=== PATIENT | male | born 1935 | race Hispanic/Latino ===

== ENCOUNTER 2018-02-12 16:31 | Observation (INO) | payer MEDICARE, OTHER ==
[2018-02-12 17:08] VITALS: BMI 31.6
--- NOTE | 2018-02-12 17:29 | ED PDOC ---
Arrival/HPI - General Time Seen by Provider: 02/12/18 16:42 Historian: Patient - History of Present Illness Narrative History of Present Illness (Text): 02/12/18 17:22 A 83 year old male, whose past medical history includes Meniere's disease, cervical myopathy, peripheral vascular disease, hypertension, hypothyroidism, and hypertension, who presents to the emergency department status post mechanical fall. Patient reports he was on his way to see his eye doctor, when he missed a step and fell forward on to his head. Alisa any loss of consciousness, headache, eye pain with eye movement, lightheadedness/dizziness, or any other complaints at this time. Patient unsure of last tetanus vaccination and believes he may be allergic to the TDAP vaccine. PMD: Dr. Paul Cardenas Symptom Onset: Gradual Symptom Course: Unchanged Activities at Onset: Light Context: Home Past Medical History - Provider Review Nursing Documentation Reviewed: Yes - Infectious Disease Hx of Infectious Diseases: None - Tetanus Immunization Tetanus Immunization: Unknown - Cardiac Hx Cardiac Disorders: Yes Hx Hypertension: Yes - Pulmonary Hx Chronic Obstructive Pulmonary Disease (COPD): Yes - Neurological Hx Neurological Disorder: No - HEENT Hx HEENT Disorder: Yes (Wears eye glassess) Hx Deafness: Yes (BYRON.) Other/Comment: Byron. HEARING AIDS, menieres disease, dry eyes b/l - Renal Hx Renal Disorder: No - Endocrine/Metabolic Hx Hypothyroidism: Yes - Hematological/Oncological Hx Blood Disorders: No - Integumentary Hx Dermatological Disorder: Yes Other/Comment: redness left foot, callous bottom of right foot, rredness and swelling toes 1 3 4 of left foot, ble discolored, dry skin right heel - Musculoskeletal/Rheumatological Hx Arthritis: Yes - Gastrointestinal Hx Gastrointestinal Disorders: (hx diverticulitis) - Genitourinary/Gynecological Hx Reproductive Disorders: Yes - Psychiatric Hx Substance Use: No - Surgical History Hx Joint Replacement: Yes (left knee/ right ankle fusion/Cervical fusion.) Other/Comment: colostomy and reversal - Anesthesia Hx Anesthesia: Yes - Suicidal Assessment Feels Threatened In Home Enviroment: No Family/Social History - Physician Review Nursing Documentation Reviewed: Yes Family/Social History: No Known Family HX Smoking Status: Former Smoker Hx Alcohol Use: Yes (occasional) Hx Substance Use: No Hx Substance Use Treatment: No Allergies/Home Meds Allergies/Adverse Reactions: Allergies diphtheria toxoid,adsorbed Allergy (Verified 02/12/18 17:09) RASH Penicillins Allergy (Verified 02/12/18 17:09) RASH Home Medications: Home Meds Medication Instructions Recorded Confirmed Aspirin [Ecotrin] 162 mg PO DAILY 05/09/12 07/23/15 Atenolol 50 mg PO BID 05/09/12 07/23/15 Celecoxib [Celebrex] 200 mg PO DAILY 05/09/12 07/23/15 Cilostazol 100 mg PO BID 05/09/12 07/23/15 Esomeprazole Magnesium [Nexium] 40 mg PO DAILY 05/09/12 07/23/15 Furosemide [Lasix] 80 mg PO DAILY 05/09/12 07/23/15 Levothyroxine Sodium 0.025 mg PO DAILY 05/09/12 07/23/15 [Levothyroxine] Meclizine HCl [Antivert] 25 mg PO BID 05/09/12 07/23/15 Oxybutynin Chloride [Ditropan Xl] 15 mg PO DAILY 05/09/12 07/23/15 Sertraline [Zoloft] 100 mg PO DAILY 05/09/12 07/23/15 Tadalafil [Cialis] 2.5 mg PO DAILY 05/09/12 07/23/15 Tamsulosin [Flomax] 0.4 mg PO DAILY 05/09/12 07/23/15 Fish Oil 1 cap PO DAILY 07/17/15 07/23/15 Neomycin/Polymyxin/Dexamethaso 1 oin OP HS PRN 07/17/15 07/23/15 [Maxitrol Opth Oint] Polyvinyl Alcohol/Povidone 1 drop OP DAILY PRN 07/17/15 07/23/15 [Refresh Opth Soln] Potassium Chloride [K-Tab ER] 20 meq PO BID 07/17/15 07/23/15 Prednisolone Acetate [Omnipred] 1 drop OP BID PRN 07/17/15 07/23/15 Sertraline Hydrochloride 100 mg PO DAILY 07/17/15 07/23/15 [Sertraline] Tetrahydrozoline Hydrochlori 1 drop OP DAILY PRN 07/17/15 07/23/15 [Soothe 15 ml] Polyethylene Glycol 3350 17 gm PO BID 07/23/15 07/23/15 Review of Systems - Physician Review All systems were reviewed & negative as marked: Yes - Review of Systems Constitutional: Other (head trauma) Cardiovascular: absent: Syncope Musculoskeletal: absent: Back Pain, Neck Pain Skin: absent: Rash Neurological: absent: Headache, Dizziness Physical Exam Vital Signs Reviewed: Yes Vital Signs Temp Pulse Resp BP Pulse Ox 02/12/18 21:34 52 L 18 111/80 93 L 02/12/18 16:46 97.9 F 50 L 18 117/72 94 L Temperature: Afebrile Blood Pressure: Normal Pulse: Regular Respiratory Rate: Normal Appearance: Positive for: Well-Appearing Pain Distress: None Mental Status: Positive for: Alert and Oriented X 3 - Systems Exam Head: Present: Normocephalic, Laceration (Laceration to left forhead, no active bleeding) Pupils: Present: PERRL Extroacular Muscles: Present: EOMI Conjunctiva: Present: Normal Mouth: Present: Moist Mucous Membranes Neck: Present: Normal Range of Motion. No: MIDLINE TENDERNESS, Paraspinal Tenderness Respiratory/Chest: Present: Clear to Auscultation, Good Air Exchange. No: Respiratory Distress, Accessory Muscle Use Cardiovascular: Present: Regular Rate and Rhythm, Normal S1, S2. No: Murmurs Abdomen: No: Tenderness, Distention, Peritoneal Signs Back: Present: Normal Inspection. No: CVA Tenderness, Midline Tenderness, Paraspinal Tenderness Upper Extremity: Present: Normal Inspection. No: Cyanosis, Edema Lower Extremity: Present: NORMAL PULSES, Normal ROM (full ROM to right knee), Neurovascularly Intact, Capillary Refill < 2 s, Other (right knee abrasion). No : Edema, Cyanosis, Tenderness, Swelling, Erythema, Deformity Neurological: Present: GCS=15, CN II-XII Intact, Speech Normal Skin: Present: Warm, Dry, Normal Color. No: Rashes Psychiatric: Present: Alert, Oriented x 3, Normal Insight, Normal Concentration Medical Decision Making ED Course and Treatment: 02/12/18 17:25 Impression: 83 year old male with head trauma s/p fall. Differential Diagnosis included but are not limited to: Mechanical Fall Plan: -- Head CT -- Cervical Spinal CT -- Maxillofacial CT -- Right Knee X-ray -- Labs -- Fingerstick -- Reassess and disposition Progress Notes: 02/12/2018 19:[address] IMPRESSION: 1. There is soft tissue swelling/hematoma of the left frontal scalp. 2. No acute intracranial hemorrhage. 3. There is a small hypodense lacunar infarct within the right thalamus, too small to determine acuity. Otherwise, there is no acute territorial type infarct. If further evaluation is clinically indicated, an MRI of the brain is recommended. 4. There are small periventricular foci of hypodensity, likely representing small vessel ischemic disease in a patient this age. 5. Mild atrophy. Dictator: Michael Barfield MD 02/12/2018 20:[address] FINDINGS: Vertebrae: There is a nondisplaced fracture of the dens process, new compared to the prior study. Lytic changes within the dens process limits classification of this fracture, but this appears to be a type I fracture. There is no acute fracture of the remaining cervical levels. There is mild anterolisthesis of C7 on T1. Postoperative laminectomy defects are visualized from C4-C7. Osteopenia. Cystic/lytic changes are identified involving the dens process, likely secondary to arthropathy. Significant hypertrophic changes are identified posterior to the dens process with moderate narrowing of the thecal sac. The cervical lordosis is mildly reversed. The facet alignment is preserved bilaterally. The occipital condyles and C1-C2 articulations appear intact. Discs/spinal canal/neural foramina: There is stable postoperative fusion from C4-T2. Spondylosis is visualized at multiple cervical and visualized upper thoracic levels. Moderate narrowing of the thecal sac is identified at C2-3 and C3-4. Artifact significantly limits evaluation of the cervical spinal canal at the remaining cervical levels. There is a significant decrease in disc height at C2-3, C3-4, and T2-3. Neural foraminal narrowing is identified diffusely within the cervical spine. Soft tissues: The prevertebral soft tissues appear within normal limits. Vasculature: Atherosclerotic changes are identified. Thyroid: There is a subcentimeter nodule within the left thyroid lobe. Lung apices: No pneumothorax. IMPRESSION: 1. There is a nondisplaced fracture of the dens process, new compared to the prior study. Lytic changes within the dens process limits classification of this fracture, but this appears to be a type I fracture. 2. There is stable postoperative fusion from C4-T2. 3. There is mild anterolisthesis of C7 on T1. The cervical lordosis is mildly reversed. 4. Spondylosis is visualized at multiple cervical and visualized upper thoracic levels. 5. Moderate narrowing of the thecal sac is identified at C2-3 and C3-4. Significant hypertrophic changes are identified posterior to the dens process with moderate narrowing of the thecal sac. 6. There is a subcentimeter nodule within the left thyroid lobe. 7. Additional CT findings described above. Dictator: Michael Barfield MD 02/12/2018 20:[address] IMPRESSION: 1. There is a fracture of the anterior nasal spine, indeterminate in acuity. 2. There is soft tissue swelling/hematoma of the left frontal scalp. 3. A few additional tiny mineralized densities are identified anterior to the maxilla on the right side and inferior to the right nasal bone. These findings are suggestive of calcifications or fracture fragments. Clinical correlation is recommended. 4. Paranasal sinus disease is noted above. Dictator: Michael Barfield MD 02/12/18 21:25 Pt will go to [facility] observation for Dens fracture, nasal bone fracture, and fall under Dr. Cardenas's service. - Lab Interpretations Lab Results: 02/12/18 19:14 02/12/18 19:14 Lab Results 02/12/18 19:14: Sodium 146, Potassium 4.2, Chloride 100, Carbon Dioxide 33, Anion Gap 18, BUN 31 H, Creatinine 1.4, Est GFR ( Amer) 58, Est GFR (Non- Af Amer) 48, Random Glucose 98, Calcium 9.5 02/12/18 19:14: WBC 8.6, RBC 4.38, Hgb 13.1 L, Hct 39.6 L, MCV 90.4, MCH 29.9, MCHC 33.1, RDW 13.6, Plt Count 162, MPV 10.4, Gran % 67.5, Lymph % (Auto) 20.6 L , Waldo % (Auto) 7.8 H, Eos % (Auto) 3.9, Baso % (Auto) 0.2, Gran # 5.78, Lymph # (Auto) 1.8, Waldo # (Auto) 0.7 H, Eos # (Auto) 0.3, Baso # (Auto) 0.02 02/12/18 19:05: POC Glucose (mg/dL) 88 I have reviewed the lab results: Yes - RAD Interpretation Radiology Orders: 02/12/18 17:25 CERVICAL SPINE W/O CONTRAST [CT] Stat HEAD W/O CONTRAST [CT] Stat KNEE RIGHT 2 VIEWS (AP & LAT) [RAD] Stat 02/12/18 17:26 MAXILLOFACIAL W/O CONTRAST [CT] Stat 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 No Sleep Is patient sleeping during reassessment? No Presence of Pain Presence of Pain Yes Pain Scale Used Pain Scale Used Numeric Location Left, Right or Bilateral Right Pain Location Body Site Thigh Description Constant Intensity 8 Scale Used Numeric Pain Behavior Moaning Alleviating Factors Medication Atenolol (Tenormin) 50 mg PO BID [facility] Last Admin: 02/13/18 17:56 Dose: Not Given Non-Admin Reason: BP Parameters Not Met [facility] Pulse and Blood Pressure Document 02/13/18 17:56 SES (Rec: 02/13/18 17:56 SES [facility] [id number]) Pulse Pulse Rate (60-90) 52 Blood Pressure Blood Pressure (100/60-150/90) 110/63 Bacitracin (Bacitracin) 1 gm TOP BID [facility] Last Admin: 02/13/18 17:53 Dose: 1 applic Furosemide (Lasix) 80 mg PO DAILY [facility] Last Admin: 02/13/18 09:52 Dose: Not Given Non-Admin Reason: BP Parameters Not Met [facility] Blood Pressure Document 02/13/18 09:52 SES (Rec: 02/13/18 09:52 SES [facility] [id number]) Blood Pressure Blood Pressure (100/60-150/90) 101/56 Levothyroxine Sodium (Synthroid) 25 mcg PO 0600 [facility] Last Admin: 02/14/18 05:59 Dose: 25 mcg Potassium Chloride (K-Dur 20 Meq Er Tab) 20 meq PO BRK [facility] Last Admin: 02/13/18 09:51 Dose: 20 meq Sertraline HCl (Zoloft) 100 mg PO DAILY [facility] Last Admin: 02/13/18 09:51 Dose: 100 mg Tamsulosin HCl (Flomax) 0.4 mg PO DAILY [facility] Last Admin: 02/13/18 09:51 Dose: 0.4 mg Discontinued Medications Diphenhydramine HCl (Benadryl Maximum Strength 1%) 1 ea TOP ONCE ONE Stop: 02/13/18 02:59 Last Admin: 02/13/18 03:17 Dose: 1 applic - Scribe Statement The provider has reviewed the documentation as recorded by the Charly Hernandez Provider Scribe Attestation: All medical record entries made by the Charly were at my direction and personally dictated by me. I have reviewed the chart and agree that the record accurately reflects my personal performance of the history, physical exam, medical decision making, and the department course for this patient. I have also personally directed, reviewed, and agree with the discharge instructions and disposition. Disposition/Present on Arrival - Present on Arrival History of DVT/PE: No History of Uncontrolled Diabetes: No Urinary Catheter: No History Surgical Site Infection Following: None - Disposition Disposition: HOSPITALIZED Disposition Time: 21:25
--- NOTE | 2018-02-12 18:39 | PCM.PROC ---
Procedures Attestation:: I certify that I have explained the specified Operation(s) or Procedure(s), risks, benefits and reasonable alternatives to the Patient and/or other person responsible. The opportunity was given to ask questions and all questions answered - Laceration lidocaine 1% simple, single layer irregular irrigated extensively left face 5-0 other local infiltration simple, interrupted Site: face Side (if applicable): left Size (cm): 3 Description: irregular Depth: simple, single layer Anesthesia used: lidocaine 1% Anesthesia technique: local infiltration Amount (mLs): 5 Pre-repair: wound explored, irrigated extensively Skin layer closed with: other (nylon) Size: 5-0 Number of sutures: 10 Technique: simple, interrupted
[2018-02-12 19:20] LABS: BASO # 0.02 K/mm3 (0.0-2.0); BASO % 0.2 % (0.0-3.0); EOS # 0.3 (0.0-0.7); EOS % 3.9 % (1.5-5.0); GRAN # 5.78 (1.4-6.5); GRAN % 67.5 % (50.0-68.0); HEMOGLOBIN 13.1 g/dL (14.0-18.0); LYMPH # 1.8 (1.2-3.4); LYMPH % 20.6 % (22.0-35.0); MEAN CELL VOLUME 90.4 fl (80.0-105.0); MEAN CORPUSCULAR HEMOGLOBIN 29.9 pg (25.0-35.0); MEAN CORPUSCULAR HGB CONC 33.1 g/dl (31.0-37.0); MEAN PLATELET VOLUME 10.4 fl (7.0-11.0); MONO # 0.7 (0.1-0.6); MONO % 7.8 % (1.0-6.0); RBC 4.38 10^6/uL (3.5-6.1); RED CELL DISTRIBUTION WIDTH 13.6 % (11.5-14.5); WHITE BLOOD COUNT 8.6 10^3/ul (4.5-11.0)
[2018-02-12 19:41] LABS: CALCIUM 9.5 mg/dL (8.4-10.5)
--- NOTE | 2018-02-12 19:55 | CT ---
EXAM: CT Head Without Intravenous Contrast EXAM DATE/TIME: 02/12/2018 5:25 PM CLINICAL HISTORY: The patient age is 83 years old and is male; Injury or trauma; Fall; Initial encounter; Abrasion; Head, generalized; Additional info: Fall R/O FX Facility exam id and description: Ct heads head w/o contrast TECHNIQUE: Axial computed tomography images of the head/brain without intravenous contrast. All CT scans at this facility use one or more dose reduction techniques, viz.: automated exposure control; ma/kV adjustment per patient size (including targeted exams where dose is matched to indication; i.e. head); or iterative reconstruction technique. Coronal and sagittal reformatted images were created and reviewed. COMPARISON: No relevant prior studies available. FINDINGS: Brain: There is a small hypodense lacunar infarct within the right thalamus, too small to determine acuity. There are small periventricular foci of hypodensity, likely representing small vessel ischemic disease in a patient this age. The acuity of the white matter disease is indeterminate. The white-evans differentiation is preserved demonstrating no acute territorial type infarct. No acute intracranial hemorrhage is seen. Midline shift: There is no midline shift. Ventricles: There is mild prominence of the ventricles and sulci, compatible with atrophy. Bones/joints: The calvarium demonstrates no evidence for a depressed fracture. For discussion of findings within the upper cervical spine, refer to the CT cervical spine report from the same day. Soft tissues: There is soft tissue swelling/hematoma of the left frontal scalp. Vasculature: There is atherosclerotic calcification of the intracranial internal carotid arteries and distal left vertebral artery. Sinuses: Refer to the facial CT report from the same day for discussion of findings involving the paranasal sinuses and facial bones. Mastoid air cells: No mastoid effusion. IMPRESSION: 1. There is soft tissue swelling/hematoma of the left frontal scalp. 2. No acute intracranial hemorrhage. 3. There is a small hypodense lacunar infarct within the right thalamus, too small to determine acuity. Otherwise, there is no acute territorial type infarct. If further evaluation is clinically indicated, an MRI of the brain is recommended. 4. There are small periventricular foci of hypodensity, likely representing small vessel ischemic disease in a patient this age. 5. Mild atrophy.
--- NOTE | 2018-02-12 20:10 | CT ---
EXAM: CT Cervical Spine Without Intravenous Contrast EXAM DATE/TIME: 02/12/2018 5:25 PM CLINICAL HISTORY: The patient age is 83 years old and is male; Injury or trauma; Fall; Initial encounter; Abrasion; Prior surgery; Surgery date: 6+ months; Additional info: Fall R/O FX Facility exam id and description: Ct csps cervical spine w/o contrast TECHNIQUE: Axial computed tomography images of the cervical spine without intravenous contrast. All CT scans at this facility use one or more dose reduction techniques, viz.: automated exposure control; ma/kV adjustment per patient size (including targeted exams where dose is matched to indication; i.e. head); or iterative reconstruction technique. Coronal and sagittal reformatted images were created and reviewed. COMPARISON: CT - CERVICAL SPINE W/O CONTRAST 2017-04-24 10:25 FINDINGS: Vertebrae: There is a nondisplaced fracture of the dens process, new compared to the prior study. Lytic changes within the dens process limits classification of this fracture, but this appears to be a type I fracture. There is no acute fracture of the remaining cervical levels. There is mild anterolisthesis of C7 on T1. Postoperative laminectomy defects are visualized from C4-C7. Osteopenia. Cystic/lytic changes are identified involving the dens process, likely secondary to arthropathy. Significant hypertrophic changes are identified posterior to the dens process with moderate narrowing of the thecal sac. The cervical lordosis is mildly reversed. The facet alignment is preserved bilaterally. The occipital condyles and C1-C2 articulations appear intact. Discs/spinal canal/neural foramina: There is stable postoperative fusion from C4-T2. Spondylosis is visualized at multiple cervical and visualized upper thoracic levels. Moderate narrowing of the thecal sac is identified at C2-3 and C3-4. Artifact significantly limits evaluation of the cervical spinal canal at the remaining cervical levels. There is a significant decrease in disc height at C2-3, C3-4, and T2-3. Neural foraminal narrowing is identified diffusely within the cervical spine. Soft tissues: The prevertebral soft tissues appear within normal limits. Vasculature: Atherosclerotic changes are identified. Thyroid: There is a subcentimeter nodule within the left thyroid lobe. Lung apices: No pneumothorax. IMPRESSION: 1. There is a nondisplaced fracture of the dens process, new compared to the prior study. Lytic changes within the dens process limits classification of this fracture, but this appears to be a type I fracture. 2. There is stable postoperative fusion from C4-T2. 3. There is mild anterolisthesis of C7 on T1. The cervical lordosis is mildly reversed. 4. Spondylosis is visualized at multiple cervical and visualized upper thoracic levels. 5. Moderate narrowing of the thecal sac is identified at C2-3 and C3-4. Significant hypertrophic changes are identified posterior to the dens process with moderate narrowing of the thecal sac. 6. There is a subcentimeter nodule within the left thyroid lobe. 7. Additional CT findings described above.
--- NOTE | 2018-02-12 20:15 | CT ---
EXAM: CT Maxillofacial Without Intravenous Contrast EXAM DATE/TIME: 02/12/2018 5:26 PM CLINICAL HISTORY: The patient age is 83 years old and is male; Injury or trauma; Fall; Initial encounter; Abrasion; Head/scalp; Without loss of consciousness; Additional info: Fall R/O FX Facility exam id and description: Ct faces maxillofacial w/o contrast TECHNIQUE: Axial computed tomography images of the face without intravenous contrast. All CT scans at this facility use one or more dose reduction techniques, viz.: automated exposure control; ma/kV adjustment per patient size (including targeted exams where dose is matched to indication; i.e. head); or iterative reconstruction technique. Coronal and sagittal reformatted images were created and reviewed. COMPARISON: No relevant prior studies available. FINDINGS: Bones/joints: There is a fracture of the anterior nasal spine, indeterminate in acuity. A few additional tiny mineralized densities are identified anterior to the maxilla on the right side and inferior to the right nasal bone. These findings are suggestive of calcifications or fracture fragments. The remaining facial bones are intact, without a visualized acute fracture. Soft tissues: There is soft tissue swelling/hematoma of the left frontal scalp. Vasculature: Atherosclerotic changes are visualized. Orbits: Bilateral orbital lens implants are identified. No acute intraorbital abnormality. Sinuses: There is opacification of the right maxillary sinus, with calcification. Mucosal thickening is identified of the bilateral ethmoid air cells and frontal sinuses. A malena bullosa variant is visualized of the right middle nasal turbinate. Dental: The patient is edentulous. IMPRESSION: 1. There is a fracture of the anterior nasal spine, indeterminate in acuity. 2. There is soft tissue swelling/hematoma of the left frontal scalp. 3. A few additional tiny mineralized densities are identified anterior to the maxilla on the right side and inferior to the right nasal bone. These findings are suggestive of calcifications or fracture fragments. Clinical correlation is recommended. 4. Paranasal sinus disease is noted above.
[2018-02-13] MEDS ORDERED: DiphenhydrAMINE 1% 1 EA TUBE TOP ONE (02:58)
--- NOTE | 2018-02-13 09:20 | RAD ---
PROCEDURE: Right Knee Radiographs. HISTORY: fall r/o fx COMPARISON: None. FINDINGS: BONES: Normal. No fracture. JOINTS: Normal. No osteoarthritis. JOINT EFFUSION: None. OTHER FINDINGS: None. IMPRESSION: Normal radiographs of the right knee.
[2018-02-13] MEDS: Potassium Chloride 20 mEq ER Tab PO SCH (09:51)
--- NOTE | 2018-02-13 11:27 | CP.PCM.CON ---
History of Present Illness - History of Present Illness History of Present Illness: SPINE CONSULT Pt seen and examined. Full consult dictated. Pt needs [place]-J collar, to be worn 01/05, probably for 4 weeks, followed by soft collar for 2-3 months. Past Patient History - Infectious Disease Hx of Infectious Diseases: None - Tetanus Immunizations Tetanus Immunization: Unknown - Past Social History Smoking Status: Never Smoked - CARDIAC Hx Cardiac Disorders: Yes Hx Hypertension: Yes - PULMONARY Hx Chronic Obstructive Pulmonary Disease (COPD): Yes - NEUROLOGICAL Hx Neurological Disorder: No - HEENT Hx HEENT Problems: Yes (Wears eye glassess) Hx Deafness: Yes (JANET.) Other/Comment: Janet. HEARING AIDS, menieres disease, dry eyes b/l - RENAL Hx Chronic Kidney Disease: No - ENDOCRINE/METABOLIC Hx Endocrine Disorders: Yes Hx Hypothyroidism: Yes - HEMATOLOGICAL/ONCOLOGICAL Hx Blood Disorders: No - INTEGUMENTARY Hx Dermatological Problems: Yes Other/Comment: redness left foot, callous bottom of right foot, rredness and swelling toes 1 3 4 of left foot, ble discolored, dry skin right heel - MUSCULOSKELETAL/RHEUMATOLOGICAL Hx Musculoskeletal Disorders: Yes Hx Arthritis: Yes Hx Falls: Yes - GASTROINTESTINAL Hx Gastrointestinal Disorders: Yes Hx Diverticulitis: Yes - GENITOURINARY/GYNECOLOGICAL Hx Genitourinary Disorders: Yes Hx Prostate Problems: Yes (bph) - PSYCHIATRIC Hx Psychophysiologic Disorder: Yes Hx Anxiety: Yes Hx Depression: Yes Hx Substance Use: No - SURGICAL HISTORY Hx Surgeries: Yes Hx Joint Replacement: Yes (left knee/ right ankle fusion/Cervical fusion.) - ANESTHESIA Hx Anesthesia: Yes Meds Allergies/Adverse Reactions: Allergies Allergy/AdvReac Type Severity Reaction Status Date / Time diphtheria toxoid,adsorbed Allergy RASH Verified 02/12/18 17:09 Penicillins Allergy RASH Verified 02/12/18 17:09 - Medications Medications: Current Medications Acetaminophen (Tylenol 325mg Tab) 650 mg PO Q4H PRN PRN Reason: Pain, Mild (1-3) Atenolol (Tenormin) 50 mg PO BID [facility] Last Admin: 02/13/18 09:52 Dose: Not Given Furosemide (Lasix) 80 mg PO DAILY [facility] Last Admin: 02/13/18 09:52 Dose: Not Given Levothyroxine Sodium (Synthroid) 25 mcg PO 0600 [facility] Potassium Chloride (K-Dur 20 Meq Er Tab) 20 meq PO BRK [facility] Last Admin: 02/13/18 09:51 Dose: 20 meq Sertraline HCl (Zoloft) 100 mg PO DAILY [facility] Last Admin: 02/13/18 09:51 Dose: 100 mg Tamsulosin HCl (Flomax) 0.4 mg PO DAILY [facility] Last Admin: 02/13/18 09:51 Dose: 0.4 mg Results - Vital Signs Recent Vital Signs: Last Vital Signs Temp 98.2 F 02/13/18 08:28 Pulse 85 02/13/18 08:28 Resp 20 02/13/18 08:28 BP 101/56 L 02/13/18 09:52 Pulse Ox 95 02/13/18 08:28 - Labs Result Diagrams: 02/12/18 19:14 02/12/18 19:14
--- NOTE | 2018-02-13 14:59 | HP ---
HISTORY OF PRESENT ILLNESS: The patient is an 83-year-old male, admitted through the emergency department on 02/12/2018 after a fall. The patient denied any syncope. There was no witnessed seizures. He sustained laceration of his right leg, which has been sutured as well as some contusion of his left forehead. There is a possible cervical fracture and the patient is admitted to the medical-surgical floor for further evaluation and management. PAST MEDICAL HISTORY: Includes hypertension, hypertensive vascular disease and congestive heart failure, hypothyroidism, peripheral vascular disease, history of chronic venous stasis ulcers of lower extremities and hyperglycemia, controlled with diet. PAST SURGICAL HISTORY: There is no significant past surgical history. ALLERGIES: THE PATIENT HAS ALLERGIES TO DIPHTHERIA TOXOID AND PENICILLIN. CURRENT MEDICATIONS: Include Flomax 0.4 mg daily, Lasix 80 mg daily, Synthroid 25 mcg daily, atenolol 50 mg twice daily and sertraline 100 mg daily. SOCIAL HISTORY: There is no history of tobacco or alcohol use. REVIEW OF SYSTEMS: The patient denies any chest pain. There is no shortness of breath. There is mild swelling of the legs. No fever. No chills. No nauseousness. No vomiting. No diarrhea. PHYSICAL EXAMINATION: GENERAL: The patient is a well-developed male, in no acute distress. VITAL SIGNS: Blood pressure 101/56, temperature 98.2, pulse 85, respiratory rate 20. HEENT: There is some left periorbital ecchymosis and abrasion of the left forehead. Pupils equal, round, reactive to light. Extraocular movements intact. NECK: With decreased range of motion secondary to pain. The patient is wearing a soft cervical collar. LUNGS: Clear. HEART: Regular rate and rhythm. ABDOMEN: Soft, nontender. Bowel sounds are normoactive. EXTREMITIES: Show mild erythema and edema of lower extremities with chronic degenerative skin changes. NEUROLOGIC: The patient is awake and oriented x3 without focal sensory or motor deficits. SKIN: Warm and dry. IMPRESSION: 1. Rule out fracture of the cervical spine. 2. Hypertension, hypertensive cardiovascular disease, history of congestive heart failure. 3. Hypothyroidism. 4. Peripheral vascular disease. 6. Chronic venous insufficiency and history of venous stasis ulcers of the lower extremities. 7. Benign prostatic hypertrophy. 8. Degenerative joint disease with impaired mobility. PLAN: Neurosurgical consultation has been called with Dr. Jefefry. Continue present care and discharge planning. MARÍA Tompkins MD
[2018-02-13] MEDS ORDERED: Bacitracin Ointment 30 GM TUBE TOP SCH (18:00)
[2018-02-14] MEDS ORDERED: Levothyroxine 25 MCG TAB PO SCH (06:00)
--- NOTE | 2018-02-14 08:16 | CON ---
DATE: 02/13/2018 REASON FOR CONSULTATION: Cervical fracture. 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 Denied any loss of consciousness. He was brought to the emergency room. He had suturing done of the laceration. CAT scan of the head and neck were done and the CT of the neck revealed a possible fracture of C2. The patient is actively moving all extremities. He is status post a C4 to T2 posterior laminectomy and fusion that was done at [facility] in 2010. At that time, evidently he was having a lot of difficulty walking. He states it got a little better, but postoperatively he developed weakness of his right upper extremity in terms of abducting his shoulder. However, he lives alone and states he has been getting by reasonably well until this happened. PAST MEDICAL HISTORY: Significant for hypertension, COPD, hypothyroidism, Meniere disease. MEDICATIONS: As listed on the chart. ALLERGIES: HE IS ALLERGIC TO PENICILLIN AND DIPHTHERIA TOXOID AND THAT THEY BOTH CAUSE RASHES. SOCIAL HISTORY: He used to smoke. Occasionally drinks alcohol. PAST SURGICAL HISTORY: Significant for a right ankle fusion done at the [facility] years ago. He had a total left knee replacement done at [facility] years ago as well. predated his cervical fusion. He also in 2001 had a colostomy and a subsequent reversal about two and a half months later for diverticulitis. PHYSICAL EXAMINATION: He does not really move his neck much and states he could not move it the whole life beforehand anyway, although he had been seeing a chiropractor. He moves his extremities actively. He has a lot of nodules in his joints, in the hands and particularly with a lot of deformities. Grossly, his neurologic exam is intact throughout. I reviewed the CAT scan and shows a lot of significant degenerative changes throughout the cervical spine. Hardware appears to be intact in C4 through T2. He has almost complete loss to the 2-3 disk space with a lot of bridging osteophytes and it so what appears to almost have auto fused. He has several lytic areas throughout the dense itself, which were present on his 04/2017, CAT scan of his neck. There appears to be a small crack and on the sagittal view may almost be a type 1 fracture, but on the coronal view, it is probably more towards the type 2. However, there is no significant angulation and no displacement at all. IMPRESSION: Nondisplaced fracture of C2, most likely type 2. The patient is adamant about not wanting anything surgically done, but in his case, I think he can be observed as long as he is wearing a firm collar for at least the first 4 weeks. We will order a small [place] J-collar and see how that fits him. He may even need a pediatric one, but we will try the small adult first. I explained that he needs to wear that 01/05, the same way he would if he had a cast done for broken arm or leg. After the first 4 weeks with nothing changed, we may be able to switch him to a soft collar at that time. One he has this brace, he can start to be mobilized with physical therapy and discharge planning. We can make arrangements to see what would be the best plan for him. Thank you for allowing me to participate in the care of your patient. Tomas Jeffery MD
[2018-02-14] MEDS: Potassium Chloride 20 mEq ER Tab PO SCH (09:20)
--- NOTE | 2018-02-14 09:25 | CP.PCM.PN ---
Subjective - Date & Time of Evaluation Date of Evaluation: 02/14/18 Time of Evaluation: 09:00 - Subjective Subjective: OOB in chair, wearing cervical collar, no pain, no extremity weakness Objective - Vital Signs/Intake and Output Vital Signs (last 24 hours): Temp Pulse Resp BP Pulse Ox 97.9 F 50 L 20 108/74 96 02/14/18 08:35 02/14/18 08:35 02/14/18 08:35 02/14/18 08:35 02/14/18 08:35 Intake and Output: 02/14/18 02/14/18 06:59 18:59 Intake Total 480 Balance 480 - Medications Medications: Current Medications Acetaminophen (Tylenol 325mg Tab) 650 mg PO Q4H PRN PRN Reason: Pain, Mild (1-3) Last Admin: 02/14/18 01:35 Dose: 650 mg Atenolol (Tenormin) 50 mg PO BID [facility] Last Admin: 02/13/18 17:56 Dose: Not Given Bacitracin (Bacitracin) 1 gm TOP BID [facility] Last Admin: 02/13/18 17:53 Dose: 1 applic Furosemide (Lasix) 80 mg PO DAILY [facility] Last Admin: 02/13/18 09:52 Dose: Not Given Levothyroxine Sodium (Synthroid) 25 mcg PO 0600 [facility] Last Admin: 02/14/18 05:59 Dose: 25 mcg Potassium Chloride (K-Dur 20 Meq Er Tab) 20 meq PO BRK [facility] Last Admin: 02/13/18 09:51 Dose: 20 meq Sertraline HCl (Zoloft) 100 mg PO DAILY [facility] Last Admin: 02/13/18 09:51 Dose: 100 mg Tamsulosin HCl (Flomax) 0.4 mg PO DAILY [facility] Last Admin: 02/13/18 09:51 Dose: 0.4 mg - Respiratory Exam Respiratory Exam: Clear to Ausculation Bilateral - Cardiovascular Exam Cardiovascular Exam: REGULAR RHYTHM - GI/Abdominal Exam GI & Abdominal Exam: Soft, Normal Bowel Sounds - Neurological Exam Neurological Exam: Alert, Awake - Skin Skin Exam: Dry, Warm Assessment and Plan (1) Fracture, cervical vertebra Status: Acute - Assessment and Plan (Free Text) Plan: NSGY consult appreciated, for SIOBHAN
--- NOTE | 2018-02-14 11:56 | CP.PCM.CON ---
History of Present Illness - History of Present Illness History of Present Illness: Podiatry consult note for Dr. Montoya 83M seen at bedside complaining of elongated, painful nails. Patient states that due to his rheumatoid arthritis he is unable to adequately cut the nails on his own anymore. Patient is AAO x 3 and NAD at time of visit. Denies any other pedal complaints at this time. States that he is going to be discharged today. Denies any recent N/V/F/C/CP/SOB/D Review of Systems - Review of Systems All systems: reviewed and no additional remarkable complaints except Review of Systems: as per HPI Past Patient History - Infectious Disease Hx of Infectious Diseases: None - Tetanus Immunizations Tetanus Immunization: Unknown - Past Social History Smoking Status: Former Smoker - CARDIAC Hx Cardiac Disorders: Yes Hx Hypertension: Yes - PULMONARY Hx Chronic Obstructive Pulmonary Disease (COPD): Yes - NEUROLOGICAL Hx Neurological Disorder: No - HEENT Hx HEENT Problems: Yes (Wears eye glassess) Hx Deafness: Yes (JANET.) Other/Comment: Janet. HEARING AIDS, menieres disease, dry eyes b/l - RENAL Hx Chronic Kidney Disease: No - ENDOCRINE/METABOLIC Hx Hypothyroidism: Yes - HEMATOLOGICAL/ONCOLOGICAL Hx Blood Disorders: No - INTEGUMENTARY Hx Dermatological Problems: Yes Other/Comment: redness left foot, callous bottom of right foot, rredness and swelling toes 1 3 4 of left foot, ble discolored, dry skin right heel - MUSCULOSKELETAL/RHEUMATOLOGICAL Hx Arthritis: Yes - GASTROINTESTINAL Hx Gastrointestinal Disorders: (hx diverticulitis) - GENITOURINARY/GYNECOLOGICAL Hx Reproductive Disorders: Yes - PSYCHIATRIC Hx Substance Use: No - SURGICAL HISTORY Hx Joint Replacement: Yes (left knee/ right ankle fusion/Cervical fusion.) Other/Comment: colostomy and reversal - ANESTHESIA Hx Anesthesia: Yes Meds Allergies/Adverse Reactions: Allergies Allergy/AdvReac Type Severity Reaction Status Date / Time diphtheria toxoid,adsorbed Allergy RASH Verified 02/12/18 17:09 Penicillins Allergy RASH Verified 02/12/18 17:09 - Medications Medications: Current Medications Acetaminophen (Tylenol 325mg Tab) 650 mg PO Q4H PRN PRN Reason: Pain, Mild (1-3) Last Admin: 02/14/18 01:35 Dose: 650 mg Atenolol (Tenormin) 50 mg PO BID [facility] Last Admin: 02/14/18 09:20 Dose: 50 mg Bacitracin (Bacitracin) 1 gm TOP BID [facility] Last Admin: 02/13/18 17:53 Dose: 1 applic Furosemide (Lasix) 80 mg PO DAILY [facility] Last Admin: 02/14/18 09:21 Dose: 80 mg Levothyroxine Sodium (Synthroid) 25 mcg PO 0600 [facility] Last Admin: 02/14/18 05:59 Dose: 25 mcg Potassium Chloride (K-Dur 20 Meq Er Tab) 20 meq PO BRK [facility] Last Admin: 02/14/18 09:20 Dose: 20 meq Sertraline HCl (Zoloft) 100 mg PO DAILY [facility] Last Admin: 02/14/18 09:21 Dose: 100 mg Tamsulosin HCl (Flomax) 0.4 mg PO DAILY [facility] Last Admin: 02/14/18 09:21 Dose: 0.4 mg Physical Exam - Constitutional Appears: Well, Non-toxic, No Acute Distress - Respiratory Exam Respiratory Exam: NORMAL BREATHING PATTERN. absent: Respiratory Distress - Extremities Exam Additional comments: LE focused exam: Vasc: DP/PT pulses palpable 1/4 b/l. Skin temperature warm to warm from proximal to distal. CFT < 3 seconds to all digits b/l. No edema noted b/l Neuro: Epicritic and protective sensation grossly intact b/l Derm: Elongated, thickened, discolored nails noted 1-5 left and 1-4 right with fifth digit nail missing. Otherwise, no open lesions, wounds, maceration, xerosis, abnormal pigmentation or abnormal growths noted b/l MSK: Severe lateral deviation of all digits and pes planus noted b/l secondary to pt hx of rheumatoid arthritis. POP of patient's elongated, dystrophic nails - Neurological Exam Neurological exam: Alert, Oriented x3 - Psychiatric Exam Psychiatric exam: Normal Affect, Normal Mood Results - Vital Signs Recent Vital Signs: Last Vital Signs Temp 97.9 F 02/14/18 08:35 Pulse 50 L 02/14/18 08:35 Resp 20 02/14/18 08:35 BP 110/74 02/14/18 09:21 Pulse Ox 96 02/14/18 08:35 - Labs Result Diagrams: 02/12/18 19:14 02/12/18 19:14 Assessment & Plan - Assessment and Plan (Free Text) Assessment: 83M seen at bedside for elongated, thickened, dystrophic, discolored, painful toe nails b/l Plan: Patient seen and evaluated Plan discussed with attending Dr. Montoya Charts, labs, vitals reviewed Aseptic onychoreduction of all nails down to appropriate length performed without incident using a nail nipper Patient is stable from podiatric standpoint Thank you for this consult, please reconsult in future as needed - Date & Time Date: 02/14/18 Time: 13:08
--- NOTE | 2018-02-14 13:32 | RAD ---
PROCEDURE: Cervical Spine Radiographs. HISTORY: Pain. COMPARISON: CT 02/12/2018 FINDINGS: BONES: There is a fracture of the dens as seen on the CT scan. Cystic degenerative changes are seen as well as hypertrophic changes around the tip of the dens. This was better evaluated on CT. DISC SPACES: Multilevel disc degeneration. Previous fusion C4 through T2 SOFT TISSUES: Normal. No prevertebral soft tissue swelling. OTHER FINDINGS: None. IMPRESSION: Fracture of the dens with surrounding hypertrophic changes and bone fragments.
[2018-02-14 15:16] VITALS: BP 116/64; PULSE 75; RESP 18; TEMP 98; O2SAT 95
--- NOTE | 2018-02-15 18:51 | DS ---
HOSPITAL COURSE: Patient is an 83-year-old male admitted through the Emergency Department on 02/12/[address] scan of the cervical spine showed a fracture of C2. The patient was admitted to the medical-surgical floor where he was seen in consultation by Neurosurgery. He was placed in a neck brace and was discharged to home in stable condition on 02/14/2018 with instructions for follow up with Neurosurgery and Physical Therapy as an outpatient. Physical examination and vital signs are as per progress note of 02/14/2018. IMPRESSION: 1. Fractured cervical spine. 2. Hypertension, hypertensive cardiovascular disease, history of congestive heart failure. 3. Hypothyroidism. 4. Peripheral vascular disease. 5. Chronic venous insufficiency of the lower extremities with history of chronic venous stasis ulcers. 6. Benign prostatic hyperplasia. 7. Degenerative joint disease with impaired mobility. PLAN: The patient will be discharged to home on the following medications, Flomax 0.4 mg daily, Lasix 80 mg daily, Synthroid 25 mcg daily, atenolol 50 mg twice daily, sertraline 100 mg daily, and Celebrex 200 mg daily. The patient will be maintained on a heart-healthy diet. Activities ad libitum. He will be followed up in the office as an outpatient within the next 1 to 2 weeks. MARÍA Tompkins MD
== END 2018-02-14 16:41 | disposition home or self-care (01) ==
LOC: ED 16:31 → ERH 21:27 → 5RSO 23:05
PROVIDERS: ADMIT Internal Medicine; ATTEND Internal Medicine
DX: S12.101A Unspecified nondisplaced fracture of second cervical vertebra, initial encounter for closed fracture (principal); S01.81XA Laceration without foreign body of other part of head, initial encounter; S81.811A Laceration without foreign body, right lower leg, initial encounter; W10.9XXA Fall (on) (from) unspecified stairs and steps, initial encounter; S02.2XXA Fracture of nasal bones, initial encounter for closed fracture; N40.0 Benign prostatic hyperplasia without lower urinary tract symptoms; M43.10 Spondylolisthesis, site unspecified; J44.9 Chronic obstructive pulmonary disease, unspecified; I87.2 Venous insufficiency (chronic) (peripheral); I73.9 Peripheral vascular disease, unspecified; I63.9 Cerebral infarction, unspecified; I50.9 Heart failure, unspecified; I11.0 Hypertensive heart disease with heart failure; H91.93 Unspecified hearing loss, bilateral; H81.09 Meniere's disease, unspecified ear; E03.9 Hypothyroidism, unspecified; M06.9 Rheumatoid arthritis, unspecified; M47.9 Spondylosis, unspecified; S00.83XA Contusion of other part of head, initial encounter; Z79.82 Long term (current) use of aspirin; Z87.891 Personal history of nicotine dependence; Z96.652 Presence of left artificial knee joint; Z88.0 Allergy status to penicillin; Z88.7 Allergy status to serum and vaccine; M21.42 Flat foot [pes planus] (acquired), left foot; M21.41 Flat foot [pes planus] (acquired), right foot
CPT/HCPCS: 11721; 12013; 70450; 70486; 72040; 72125; 73560; 80048; 82948; 85025; 97162; 99285; G0378; G8978; G8979

== ENCOUNTER 2018-03-11 21:59 | Emergency (ER) | payer MEDICARE, OTHER ==
[2018-03-11 22:54] VITALS: BMI 28.0
--- NOTE | 2018-03-11 23:39 | ED PDOC ---
Arrival/HPI - General Historian: Patient - History of Present Illness Time/Duration: > week Symptom Onset: Gradual Symptom Course: Unchanged, Worsening Quality: Dullness Severity Level: 2, 3 Activities at Onset: Rest Context: Home <Danuta Goss - Last Filed: 03/12/18 11:25> <Sai Martinez - Last Filed: 03/12/18 17:09> - General Chief Complaint: Finger,Hand,&Wrist Time Seen by Provider: 03/11/18 23:10 - History of Present Illness Narrative History of Present Illness (Text): 03/11/18 23:33 A 83 year old male, whose past medical history includes Meniere's disease, cervical myelopathy, peripheral vascular disease, hypertension, hypothyroidism, and hypertension, who presents to the emergency department status post mechanical fall and admission for a Dens Fracture on 02/12/18 and was evaluated and treated by Dr Tiwari. Pt is here with his son at bedside, for numbness of the index and thumb and change in strength in both hands over the past few days despite continuously wearing the collar he was put in. He is concerned that he may have worsening of the fracture and nerve dysfunction. Denies chest pain and shortness of breath, fever, headache, neck pain, trauma or fall, syncope, nausea, vomiting or any other complaint. (Danuta Goss) Past Medical History - Provider Review Nursing Documentation Reviewed: Yes - Travel History Have you recently traveled outside [place] w/in the past 3 mons?: No - Infectious Disease Hx of Infectious Diseases: None - Tetanus Immunization Tetanus Immunization: Unknown - Cardiac Hx Cardiac Disorders: Yes Hx Hypertension: Yes - Pulmonary Hx Chronic Obstructive Pulmonary Disease (COPD): Yes - Neurological Hx Neurological Disorder: No - HEENT Hx HEENT Disorder: Yes (Wears eye glassess) Hx Deafness: Yes (BYRON.) Other/Comment: Byron. HEARING AIDS, menieres disease, dry eyes b/l - Renal Hx Renal Disorder: No - Endocrine/Metabolic Hx Hypothyroidism: Yes - Hematological/Oncological Hx Blood Disorders: No - Integumentary Hx Dermatological Disorder: Yes Other/Comment: redness left foot, callous bottom of right foot, rredness and swelling toes 1 3 4 of left foot, ble discolored, dry skin right heel - Musculoskeletal/Rheumatological Hx Arthritis: Yes - Gastrointestinal Hx Gastrointestinal Disorders: (hx diverticulitis) - Genitourinary/Gynecological Hx Reproductive Disorders: Yes - Psychiatric Hx Psychophysiologic Disorder: Yes Hx Anxiety: Yes Hx Depression: Yes Hx Substance Use: No - Surgical History Hx Joint Replacement: Yes (left knee/ right ankle fusion/Cervical fusion.) Other/Comment: colostomy and reversal - Anesthesia Hx Anesthesia: Yes - Suicidal Assessment Feels Threatened In Home Enviroment: No <Danuta Goss - Last Filed: 03/12/18 11:25> Family/Social History - Physician Review Nursing Documentation Reviewed: Yes Family/Social History: Unknown Family HX Smoking Status: Former Smoker Hx Alcohol Use: Yes (occasional) Hx Substance Use: No Hx Substance Use Treatment: No <Danuta Goss - Last Filed: 03/12/18 11:25> Allergies/Home Meds <Danuta Goss - Last Filed: 03/12/18 11:25> <Sai Martinez - Last Filed: 03/12/18 17:09> Allergies/Adverse Reactions: Allergies diphtheria toxoid,adsorbed Allergy (Verified 03/11/18 22:43) RASH Penicillins Allergy (Verified 03/11/18 22:43) RASH Home Medications: Home Meds Medication Instructions Recorded Confirmed Aspirin [Ecotrin] 162 mg PO DAILY 05/09/12 07/23/15 Atenolol 50 mg PO BID 05/09/12 07/23/15 Celecoxib [Celebrex] 200 mg PO DAILY 05/09/12 07/23/15 Cilostazol 100 mg PO BID 05/09/12 07/23/15 Esomeprazole Magnesium [Nexium] 40 mg PO DAILY 05/09/12 07/23/15 Furosemide [Lasix] 80 mg PO DAILY 05/09/12 07/23/15 Levothyroxine Sodium 0.025 mg PO DAILY 05/09/12 07/23/15 [Levothyroxine] Meclizine HCl [Antivert] 25 mg PO BID 05/09/12 07/23/15 Oxybutynin Chloride [Ditropan Xl] 15 mg PO DAILY 05/09/12 07/23/15 Sertraline [Zoloft] 100 mg PO DAILY 05/09/12 07/23/15 Tadalafil [Cialis] 2.5 mg PO DAILY 05/09/12 07/23/15 Tamsulosin [Flomax] 0.4 mg PO DAILY 05/09/12 07/23/15 Fish Oil 1 cap PO DAILY 07/17/15 07/23/15 Neomycin/Polymyxin/Dexamethaso 1 oin OP HS PRN 07/17/15 07/23/15 [Maxitrol Opth Oint] Polyvinyl Alcohol/Povidone 1 drop OP DAILY PRN 07/17/15 07/23/15 [Refresh Opth Soln] Potassium Chloride [K-Tab ER] 20 meq PO BID 07/17/15 07/23/15 Prednisolone Acetate [Omnipred] 1 drop OP BID PRN 07/17/15 07/23/15 Sertraline Hydrochloride 100 mg PO DAILY 07/17/15 07/23/15 [Sertraline] Tetrahydrozoline Hydrochlori 1 drop OP DAILY PRN 07/17/15 07/23/15 [Soothe 15 ml] Polyethylene Glycol 3350 17 gm PO BID 07/23/15 07/23/15 Review of Systems - Review of Systems Constitutional: Normal Eyes: Normal ENT: Normal Respiratory: Normal Cardiovascular: Normal Gastrointestinal: Normal Genitourinary Male: Normal Musculoskeletal: Normal, Neck Pain, Other (bilateral hand pain and change in sensation) Skin: Normal Neurological: Normal Endocrine: Normal Hemo/Lymphatic: Normal Psychiatric: Normal <Danuta Goss L - Last Filed: 03/12/18 11:25> Physical Exam Vital Signs Reviewed: Yes Temperature: Afebrile Blood Pressure: Normal Pulse: Regular Respiratory Rate: Normal Appearance: Positive for: Well-Appearing, Non-Toxic, Uncomfortable Pain Distress: Mild Mental Status: Positive for: Alert and Oriented X 3 - Systems Exam Head: Present: Atraumatic, Normocephalic Pupils: Present: PERRL Extroacular Muscles: Present: EOMI Conjunctiva: Present: Normal Mouth: Present: Moist Mucous Membranes Neck: Present: Other (wears cervical collar) Respiratory/Chest: Present: Clear to Auscultation, Good Air Exchange. No: Respiratory Distress, Accessory Muscle Use Cardiovascular: Present: Regular Rate and Rhythm, Normal S1, S2. No: Murmurs Abdomen: No: Tenderness, Distention, Peritoneal Signs Back: Present: Normal Inspection. No: CVA Tenderness, Midline Tenderness Upper Extremity: Present: Normal Inspection. No: Cyanosis, Edema Lower Extremity: Present: Normal Inspection. No: Edema Neurological: Present: GCS=15, CN II-XII Intact, Speech Normal, Motor Func Grossly Intact (bilateral anaesthetic technician 4/5, active resistance in UE/LE), Normal Sensory Function (SILT of the hand and arm dermtomes, bilateral) Skin: Present: Warm, Dry, Normal Color. No: Rashes Psychiatric: Present: Alert, Oriented x 3, Normal Insight, Normal Concentration <Danuta Goss - Last Filed: 03/12/18 11:25> Vital Signs Temp Pulse Resp BP Pulse Ox 03/12/18 02:21 98.2 F 72 17 105/51 L 98 03/11/18 22:00 98 F 60 18 126/74 96 Medical Decision Making <Danuta Goss - Last Filed: 03/12/18 11:25> <Sai Martinez - Last Filed: 03/12/18 17:09> ED Course and Treatment: 03/11/18 23:39 Impression A 83 year old male, whose past medical history includes Meniere's disease, cervical myelopathy, peripheral vascular disease, hypertension, hypothyroidism, and hypertension, who presents to the emergency department status post mechanical fall and admission for Dens Fx 02/12/18. He wear a c-collar 01/05 but has noticed a change in his sensation and motor function of both hands over the past 2 days. On exam, pt has good motor function and reports full sensation of hand and arm dermatomes; Both hands have significant amount of OA; pt is very chatty and needs constant reassurance Plan Cervical spine CT ordered Assess and Dispo 03/12/18 01:[address] of CS IMPRESSION: 1. There is a nondisplaced fracture of the dens process, unchanged from prior study. 2. Moderate narrowing of the thecal sac is identified at C2-3 and C3-4. Significant hypertrophic changes are identified posterior to the dens process with moderate narrowing of the thecal sac. Advised son at bedside that if pt is unable to live on his own despite regular Home care nurse visits, he may need to be assessed for a rehab facility Pt is scheduled to see Dr Tiwari for follow up Pt is AOx3 but has anxiety about living alone Advised son to contact PMD, Dr Cardenas, Monday morning to arrange for Rehab Services if possible VSS on dc 03/12/18 02:16 03/12/18 11:25 (Danuta Goss) - RAD Interpretation Narrative RAD Interpretations (Text): 03/12/18 01:58 CT Cervical Spine IMPRESSION: 1. There is a nondisplaced fracture of the dens process, unchanged from prior study. 2. Moderate narrowing of the thecal sac is identified at C2-3 and C3-4. Significant hypertrophic changes are identified posterior to the dens process with moderate narrowing of the thecal sac. (Danuta Goss) Radiology Orders: 03/11/18 23:10 CERVICAL SPINE W/O CONTRAST [CT] Stat - PA / CLINICAL QUALITY RN / Resident Statement MD/DO has reviewed & agrees with the documentation as recorded. <Sai Martinez - Last Filed: 03/12/18 17:09> Disposition/Present on Arrival - Present on Arrival Any Indicators Present on Arrival: Yes History of DVT/PE: No History of Uncontrolled Diabetes: No Urinary Catheter: No History of Decub. Ulcer: No History Surgical Site Infection Following: None - Disposition Have Diagnosis and Disposition been Completed?: Yes Disposition Time: 02:01 Patient Plan: Discharge <Danuta Goss - Last Filed: 03/12/18 11:25> <Sai Martinez - Last Filed: 03/12/18 17:09> - Disposition Diagnosis: Dens fracture, Cervical radiculopathy, Cervical nerve root impingement, Cervical myelopathy Disposition: HOME/ ROUTINE Condition: STABLE Discharge Instructions (ExitCare): Radiculopathy (DC), Neck Fracture (DC) Additional Instructions: Richard thank you for letting us take care of you today. Your provider was EVERT Goss. You were treated for cervical pain with nerve impingement. The emergency medical care you received today was directed at your acute symptoms. If you were prescribed any medication, please fill it and take as directed. It may take several days for your symptoms to resolve. Return to the Emergency Department if your symptoms worsen, do not improve, or if you have any other problems. Please contact Dr Paul Cardenas to discuss arranging a transfer to a rehabilitation facility for on-going care Please contact your doctor or call one of the physicians/clinics you have been referred to that are listed on the Patient Visit Information form that is included in your discharge packet. Bring any paperwork you were given at discharge with you along with any medications you are taking to your follow up visit. Our treatment cannot replace ongoing medical care by a primary care provider (PCP) outside of the emergency department. Thank you for allowing the [facility] team to be part of your care today. If you had an X-Ray or CT scan: A Radiologist will review the ED reading if any change in treatment is needed we will contact you. Forms: [place] (Malay)
--- NOTE | 2018-03-12 01:45 | CT ---
EXAM: CT Cervical Spine Without Intravenous Contrast CLINICAL HISTORY: 83 years old, male; Pain; Radicular pain (radiculopathy); Cervical region; Prior surgery; Additional info: Cervical radiculopathy TECHNIQUE: Axial computed tomography images of the cervical spine without intravenous contrast. All CT scans at this facility use one or more dose reduction techniques, viz.: automated exposure control; ma/kV adjustment per patient size (including targeted exams where dose is matched to indication; i.e. head); or iterative reconstruction technique. 836 images are submitted. Coronal and sagittal reformatted images were created and reviewed. COMPARISON: CT - CERVICAL SPINE W/O CONTRAST 2018-02-12 18:50 FINDINGS: Vertebrae: There is a nondisplaced type I fracture of the dens process, unchanged from prior study. Multiple osseous lucencies changes within the dens related to degenerative changes.Significant hypertrophic changes are identified posterior to the dens process with moderate narrowing of the thecal sac. There is no acute fracture of the remaining cervical levels. There is mild anterolisthesis of C7 on T1. Postoperative laminectomy defects are visualized from C4-C7. Osteopenia. The cervical lordosis is mildly reversed. The facet alignment is preserved bilaterally. The occipital condyles and C1-C2 articulations appear intact. Discs/spinal canal/neural foramina: There is stable postoperative fusion from C4-T2. Hardware artifact limits the evaluation of the cord. Spondylosis is visualized at multiple cervical and visualized upper thoracic levels. Moderate narrowing of the thecal sac is identified at C2-3 and C3-4. Artifact significantly limits evaluation of the cervical spinal canal at the remaining cervical levels. There is a significant decrease in disc height at C2-3, C3-4, and T2-3. Neural foraminal narrowing is identified diffusely within the cervical spine. Soft tissues: The prevertebral soft tissues appear within normal limits. Vasculature: Atherosclerotic changes are identified. Thyroid: There is a subcentimeter nodule within the left thyroid lobe. Lung apices: No pneumothorax. Sinuses: There is opacification of right maxillary sinus with calcification. Patchy sinus disease. IMPRESSION: 1. There is a nondisplaced fracture of the dens process, unchanged from prior study. 2. Moderate narrowing of the thecal sac is identified at C2-3 and C3-4. Significant hypertrophic changes are identified posterior to the dens process with moderate narrowing of the thecal sac.
[2018-03-12 02:22] VITALS: BP 105/51; PULSE 72; RESP 17; TEMP 98.2; O2SAT 98
== END 2018-03-12 02:22 | disposition home or self-care (01) ==
LOC: ED 21:59
DX: S12.112D Nondisplaced Type II dens fracture, subsequent encounter for fracture with routine healing (principal); W10.9XXD Fall (on) (from) unspecified stairs and steps, subsequent encounter; M54.12 Radiculopathy, cervical region; G95.89 Other specified diseases of spinal cord

== ENCOUNTER 2018-03-21 08:25 | Inpatient (IN) | payer MEDICARE, OTHER ==
[2018-03-21] MEDS ORDERED: Oxycodone/Acetaminophen 5/325 mg Tab PO STA (09:42)
--- NOTE | 2018-03-21 09:42 | ED PDOC ---
Arrival/HPI - General Chief Complaint: Upper Extremity Problem/Injury Time Seen by Provider: 03/21/18 08:26 Historian: Patient - History of Present Illness Narrative History of Present Illness (Text): 03/21/18 09:30 83 y/o male, pmh including htn/chf/hypothyroidism/bph/carpal tunnel of bilateral wrist/arthirtis, allergic to penicillin and tetanus?, send in by pmd for admission for cervical spine fracture with pain that resulted traumatic fall about 1 month ago with lt. eyebrow 2 stiches that placed about 1 month ago. Pt. had MRI and CT of the cervical spine on earlier this month which show stable changes, chronic numbness and tingling on the bilateral wrist with numbness and tingling which he is scheduled the surgery for with hand specialist , chronic numbness and tingling of the bilateral upper extremities which he is scheduling for cervical spine surgery in 2 days, was on meloxicom but stopped due to the scheduled surgery, here today because the numbness and tingling not resolved and concerning involving the cervical spine fracture of the C1C2 despite the MRI/CT cervical spine show stable due the conservative treatment has fail and gonna go for surgical intervention with the neurosurgeon in 2 days. Pt. has no worsening numbness or tingling, no slurred speech, no extremity weakness, no urinary or bowel incontinence or retention, no other medical or psychological complaints. Past Medical History - Provider Review Nursing Documentation Reviewed: Yes - Infectious Disease Hx of Infectious Diseases: None - Tetanus Immunization Tetanus Immunization: Unknown - Cardiac Hx Cardiac Disorders: Yes Hx Hypertension: Yes - Pulmonary Hx Chronic Obstructive Pulmonary Disease (COPD): Yes - Neurological Hx Neurological Disorder: No - HEENT Hx HEENT Disorder: Yes (Wears eye glassess) Hx Deafness: Yes (JANET.) Other/Comment: Janet. HEARING AIDS, menieres disease, dry eyes b/l - Renal Hx Renal Disorder: No - Endocrine/Metabolic Hx Hypothyroidism: Yes - Hematological/Oncological Hx Blood Disorders: No - Integumentary Hx Dermatological Disorder: Yes Other/Comment: redness left foot, callous bottom of right foot, rredness and swelling toes 1 3 4 of left foot, ble discolored, dry skin right heel - Musculoskeletal/Rheumatological Hx Arthritis: Yes - Gastrointestinal Hx Gastrointestinal Disorders: (hx diverticulitis) - Genitourinary/Gynecological Hx Reproductive Disorders: Yes - Psychiatric Hx Psychophysiologic Disorder: Yes Hx Anxiety: Yes Hx Depression: Yes Hx Substance Use: No - Surgical History Hx Joint Replacement: Yes (left knee/ right ankle fusion/Cervical fusion.) Other/Comment: colostomy and reversal - Anesthesia Hx Anesthesia: Yes - Suicidal Assessment Feels Threatened In Home Enviroment: No Family/Social History - Physician Review Nursing Documentation Reviewed: Yes Family/Social History: Unknown Family HX Smoking Status: Former Smoker Hx Alcohol Use: Yes (occasional) Hx Substance Use: No Hx Substance Use Treatment: No Allergies/Home Meds Allergies/Adverse Reactions: Allergies diphtheria toxoid,adsorbed Allergy (Verified 03/11/18 22:43) RASH Penicillins Allergy (Verified 03/11/18 22:43) RASH Home Medications: Home Meds Medication Instructions Recorded Confirmed Aspirin [Ecotrin] 81 mg PO DAILY 03/21/18 03/21/18 Atenolol [Tenormin] 100 mg PO DAILY 03/21/18 03/21/18 Cilostazol [Pletal] 100 mg PO DAILY 03/21/18 03/21/18 Esomeprazole Magnesium [Nexium] 40 mg PO DAILY 03/21/18 03/21/18 Furosemide [Lasix] 160 mg PO DAILY 03/21/18 03/21/18 Latanoprost [Xalatan] 2 drop BOTHEYES DAILY 03/21/18 03/21/18 Levothyroxine Sodium [Levoxyl] 25 mcg PO DAILY 03/21/18 03/21/18 Meclizine [Meclizine*] 25 mg PO DAILY 03/21/18 03/21/18 Oxybutynin [Ditropan Tab] 15 mg pe PO DAILY 03/21/18 03/21/18 Pot Chloride/Micah Phos/Mag 120 mg PO DAILY 03/21/18 03/21/18 [Medi-Lyte Tablet] Sertraline [Zoloft] 50 mg PO DAILY 03/21/18 03/21/18 Tamsulosin [Flomax] 0.4 mg PO DAILY 03/21/18 03/21/18 traMADol [Ultram] 50 mg PO BID 03/21/18 03/21/18 Review of Systems - Review of Systems Constitutional: absent: Fatigue, Fevers Eyes: absent: Vision Changes ENT: absent: Hearing Changes Respiratory: absent: SOB, Cough Cardiovascular: absent: Chest Pain Gastrointestinal: absent: Abdominal Pain, Nausea, Vomiting Musculoskeletal: Arthralgias, Neck Pain. absent: Back Pain, Joint Swelling, Myalgias Skin: Laceration (lt. eyebrow laceration 2 sutures). absent: Rash, Pruritis Neurological: Other (numbness and tingling). absent: Headache, Dizziness, Focal Weakness, Gait Changes, Speech Changes, Facial Droop, Disequilibrium, Seizure Endocrine: absent: Diaphoresis, Polyuria Psychiatric: absent: Anxiety, Depression, Suicidal Ideation Physical Exam Vital Signs Reviewed: Yes Vital Signs Temp Pulse Resp BP Pulse Ox 03/21/18 08:56 98.1 F 58 L 18 112/71 98 Temperature: Afebrile Blood Pressure: Normal Pulse: Bradycardic Respiratory Rate: Normal Appearance: Positive for: Well-Appearing, Non-Toxic, Comfortable Pain Distress: Moderate Mental Status: Positive for: Alert and Oriented X 3 - Systems Exam Head: Present: Atraumatic, Normocephalic, Other (Lt. eyebrown region visible 2 sutures with wound completely healed with scar noted. ) Pupils: Present: PERRL Extroacular Muscles: Present: EOMI Conjunctiva: Present: Normal Ears: Present: NORMAL TM, Normal Canal. No: Erythema Mouth: Present: Moist Mucous Membranes Pharnyx: Present: Normal. No: ERYTHEMA, EXUDATE, TONSILS ENLARGED Nose (External): Present: Atraumatic. No: Abrasion, Contusion, Laceration Nose (Internal): Present: Normal Inspection, No Active Bleeding. No: Septal Hematoma, Epistaxis Neck: Present: Normal Range of Motion, MIDLINE TENDERNESS (mild +ttp on the upper level of the cervical spine with the cervical collar on), Trachea Midline. No: Meningeal Signs, Paraspinal Tenderness, Lymphadenopathy Respiratory/Chest: Present: Clear to Auscultation, Good Air Exchange. No: Respiratory Distress, Accessory Muscle Use Cardiovascular: Present: Regular Rate and Rhythm, Normal S1, S2. No: Murmurs Abdomen: No: Tenderness, Distention, Peritoneal Signs, Rebound, Guarding Back: Present: Normal Inspection. No: CVA Tenderness, Midline Tenderness, Paraspinal Tenderness, Pain with Leg Raise, Decubitus Ulcer Upper Extremity: Present: Normal Inspection, Other (Bilateral upper extremities : +tinel and phalen signs, +bilateal hand noted to have thenar atrophy with left greater than right, +arthiritis changes noted on the DIPJ and PIPJ, + radial pulse, neurovascular grossly intact, +radial pulse, capillary refill< 2 seconds, neurovascular intact. ). No: Cyanosis, Edema Lower Extremity: Present: Normal Inspection. No: Edema Neurological: Present: GCS=15, CN II-XII Intact, Speech Normal, Motor Func Grossly Intact, Memory Normal Skin: Present: Warm, Dry, Normal Color. No: Rashes Psychiatric: Present: Alert, Oriented x 3, Normal Insight, Normal Concentration Medical Decision Making ED Course and Treatment: 03/21/18 09:52 -labs/ua/type and screen/pt/ptt -bilateral cock up splints for his carpal tunnel -keep cervical collar on -ekg -cxr -IVF 70cc/hr, percocet/zofran/gabapentin for his numbness and tingling -shelter monitor -will call Dr. Cardenas for admission after labs/radiology resulted -Observe and reassess 03/21/18 11:25 -EKG: Sinus Bradycardia @ 48 BPM, no ST elevation or depression, no T wave inversion. -Chest xray: No interval pathology noted -Labs no acute findings -UA show no UTI -All plans and procedure explained with the patient/patient's son and Dr. Casillas, they all agreed on the plan of care labs/radiology orders -2 sutures removed from the left eyebrow with no more sutures remained -Paging Dr. Cardenas for admission. 03/21/18 11:30 -I spoke to DR. Cardenas about this case, agreed this patient needs full admission , he will follow up with the specialist including neurosurgery. -Dr. Casillas will put in the admission. -Bridge order place by me. -Pt. is comfortable. - Lab Interpretations Lab Results: 03/21/18 10:00 03/21/18 10:00 Lab Results 03/21/18 10:30: Blood Type Pending, Antibody Screen Pending, BBK History Checked No verified bt 03/21/18 10:00: WBC 9.0, RBC 4.44, Hgb 13.1 L, Hct 40.3 L, MCV 90.8, MCH 29.5, MCHC 32.5, RDW 14.1, Plt Count 214, MPV 10.8, Gran % 74.7 H, Lymph % (Auto) 12.7 L, Eaton % (Auto) 9.7 H, Eos % (Auto) 2.8, Baso % (Auto) 0.1, Gran # 6.72 H , Lymph # (Auto) 1.1 L, Eaton # (Auto) 0.9 H, Eos # (Auto) 0.3, Baso # (Auto) 0.01 03/21/18 10:00: Sodium 142, Potassium 3.8, Chloride 97 L, Carbon Dioxide 33, Anion Gap 15, BUN 21, Creatinine 1.0, Est GFR ( Amer) > 60, Est GFR (Non- Af Amer) > 60, Random Glucose 91, Calcium 9.4, Magnesium 2.2, Total Bilirubin 0.5, AST 40, ALT 54, Alkaline Phosphatase 88, NT-Pro-B Natriuret Pep Pending, Total Protein 7.5, Albumin 4.0, Globulin 3.5, Albumin/Globulin Ratio 1.2 03/21/18 10:00: Urine Color Yellow, Urine Appearance Clear, Urine pH 6.5, Ur Specific [place] 1.010, Urine Protein Negative, Urine Glucose (UA) Negative, Urine Ketones Negative, Urine Blood Negative, Urine Nitrate Negative, Urine Bilirubin Negative, Urine Urobilinogen 0.2, Ur Leukocyte Esterase Negative 03/21/18 10:00: PT 13.2 H, INR 1.14 H, APTT 30.5 I have reviewed the lab results: Yes Interpretation: No clinic. lab abnormalty - RAD Interpretation Radiology Orders: 03/21/18 09:42 CHEST PORTABLE [RAD] Stat HISTORY: pre-op, medical clearance COMPARISON: 07/17/2015 FINDINGS: LUNGS: No active pulmonary disease. Shallow lung volumes. PLEURA: No significant pleural effusion identified, no pneumothorax apparent. CARDIOVASCULAR: Heart size borderline prominent OSSEOUS STRUCTURES: Cervical hardware present partially visualize now Thoracic spondylosis-similar. Lateral shoulder arthrosis -similar VISUALIZED UPPER ABDOMEN: Normal. OTHER FINDINGS: None. IMPRESSION: No interval pathology noted Other findings -as above. Adolescent Psychiatrist: Radiologist - EKG Interpretation EKG Interpretation (Text): 03/21/18 11:10 -EKG: Sinus Bradycardia @ 48 BPM, no ST elevation or depression, no T wave inversion. Interpreted by ED Physician: Yes Type: 12 lead EKG - Medication Orders Current Medication Orders: Sodium Chloride (Sodium Chloride 0.9%) 1,000 mls @ 75 mls/hr IV .[id number] GRISEL Last Admin: 03/21/18 10:23 Dose: 75 mls/hr eMAR Start Stop Document 03/21/18 10:23 EQ (Rec: 03/21/18 10:24 EQ [id number]) Intravenous Solution Start Date 03/21/18 Start Time 10:24 Discontinued Medications Gabapentin (Neurontin) 300 mg PO STAT ONE PRN Reason: Protocol Stop: 03/21/18 09:46 Last Admin: 03/21/18 10:23 Dose: 300 mg Ondansetron HCl (Zofran Inj) 4 mg IVP STAT STA Stop: 03/21/18 09:45 Last Admin: 03/21/18 10:23 Dose: 4 mg IVP Administration Document 03/21/18 10:23 EQ (Rec: 03/21/18 10:23 EQ [id number]) Charges for Administration # of IVP Administrations 1 Oxycodone/Acetaminophen (Percocet 5/325 Mg Tab) 1 tab PO STAT STA Stop: 03/21/18 09:43 Last Admin: 03/21/18 10:23 Dose: 1 tab MAR Pain Assessment Document 03/21/18 10:23 EQ (Rec: 03/21/18 10:23 EQ [id number]) Pain Reassessment Is this a pain reassessment? No Sleep Is patient sleeping during reassessment? No Presence of Pain Presence of Pain Yes - PA / [employer]ERAL [employer]IXER / Resident Statement MD/DO has reviewed & agrees with the documentation as recorded. Disposition/Present on Arrival - Present on Arrival Any Indicators Present on Arrival: No History of DVT/PE: No History of Uncontrolled Diabetes: No Urinary Catheter: No History of Decub. Ulcer: No History Surgical Site Infection Following: None - Disposition Have Diagnosis and Disposition been Completed?: Yes Diagnosis: Fracture, cervical vertebra, Visit for suture removal, Carpal tunnel syndrome, bilateral, Paresthesia and pain of both upper extremities, Failure of outpatient treatment Disposition: HOSPITALIZED Disposition Time: 09:54 Patient Plan: Admission Patient Problems: Current Active Problems Problem Status Onset Fracture, cervical vertebra Acute Visit for suture removal Acute Carpal tunnel syndrome, bilateral Acute Paresthesia and pain of both upper extremities Acute Failure of outpatient treatment Acute Condition: STABLE Forms: [employer] (Togolese)
[2018-03-21] MEDS ORDERED: Sodium Chloride 0.9% 1,000 ML IV SCH (09:45)
--- NOTE | 2018-03-21 10:03 | RAD ---
HISTORY: pre-op, medical clearance COMPARISON: 07/17/2015 FINDINGS: LUNGS: No active pulmonary disease. Shallow lung volumes. PLEURA: No significant pleural effusion identified, no pneumothorax apparent. CARDIOVASCULAR: Heart size borderline prominent OSSEOUS STRUCTURES: Cervical hardware present partially visualize now Thoracic spondylosis-similar. Lateral shoulder arthrosis -similar VISUALIZED UPPER ABDOMEN: Normal. OTHER FINDINGS: None. IMPRESSION: No interval pathology noted Other findings -as above.
[2018-03-21 11:05] LABS: BASO # 0.01 K/mm3 (0.0-2.0); BASO % 0.1 % (0.0-3.0); EOS # 0.3 (0.0-0.7); EOS % 2.8 % (1.5-5.0); GRAN # 6.72 (1.4-6.5); GRAN % 74.7 % (50.0-68.0); HEMOGLOBIN 13.1 g/dL (14.0-18.0); LYMPH # 1.1 (1.2-3.4); LYMPH % 12.7 % (22.0-35.0); MEAN CELL VOLUME 90.8 fl (80.0-105.0); MEAN CORPUSCULAR HEMOGLOBIN 29.5 pg (25.0-35.0); MEAN CORPUSCULAR HGB CONC 32.5 g/dl (31.0-37.0); MEAN PLATELET VOLUME 10.8 fl (7.0-11.0); MONO # 0.9 (0.1-0.6); MONO % 9.7 % (1.0-6.0); RBC 4.44 10^6/uL (3.5-6.1); RED CELL DISTRIBUTION WIDTH 14.1 % (11.5-14.5)
[2018-03-21 11:07] LABS: PH,URINE 6.5 (4.7-8.0); URINE BILIRUBIN NEGATIVE (NEGATIVE); URINE BLOOD NEGATIVE (NEGATIVE); URINE GLUCOSE (UA) NEGATIVE (NEGATIVE); URINE LEUKOCYTE ESTERASE NEGATIVE Leu/uL (NEGATIVE); URINE PROTEIN NEGATIVE mg/dL (<30 mg/dL); URINE UROBILINOGEN 0.2 E.U./dL (<1 E.U./dL)
[2018-03-21 11:09] LABS: URINE APPEARANCE CLEAR (CLEAR); URINE COLOR YELLOW (YELLOW)
[2018-03-21 11:19] LABS: INR 1.14 (0.93-1.08); PARTIAL THROMBOPLASTIN TIME 30.5 Seconds (25.1-36.5); PROTHROMBIN TIME 13.2 SECONDS (9.4-12.5)
[2018-03-21 11:24] LABS: ALB/GLOB RATIO 1.2 (1.1-1.8); ALT/SGPT 54 U/L (7-56); AST/SGOT 40 U/L (17-59); BLOOD UREA NITROGEN 21 mg/dL (7-21); CALCIUM 9.4 mg/dL (8.4-10.5); GFR AFRICAN-AMERICAN > 60; GFR NON-AFRICAN AMERICAN > 60
[2018-03-21 11:31] LABS: B-TYPE NATRIURETIC PEPTIDE 126 pg/mL (0-450)
[2018-03-21 14:57] VITALS: BMI 29.5
[2018-03-21] MEDS ORDERED: Pneumococcal 23-Valent Vaccine IM ONE (14:57)
--- NOTE | 2018-03-21 16:58 | CARD ---
APPROVED REPORT EKG Measurement Heart [id number] [id number] <Conclusion> Marked sinus bradycardia Voltage criteria for left ventricular hypertrophy Inferior infarct, age undetermined Abnormal ECG
[2018-03-21] MEDS: Latanoprost 2.5 ml Opht Soln OU SCH (21:37)
--- NOTE | 2018-03-22 04:28 | CON ---
DATE: 03/21/2018 REASON FOR CONSULTATION AND FOLLOWUP: Preop evaluation, risk stratification for cervical spine surgery. BRIEF CLINICAL HISTORY: An 83-year-old male with past medical history significant for hypothyroidism, hypertension, rheumatoid arthritis, gastroesophageal reflux, who has history of cervical spine myelopathy and cervical spine surgery in 2011 at [facility], recently had a spine fracture and admitted electively for a spine surgery and cardiac consult was called for preop evaluation and risk stratification as MRI and CT revealed that spine fracture. The patient denies any chest pain, shortness of breath or any palpitation. SOCIAL HISTORY: Quit smoking for many years. According to him, the cigarette was 35 cents at that time he quit 30 years ago. Denies any history of alcohol abuse, quit many years ago. PAST MEDICAL HISTORY: Significant for chronic venous insufficiency, venous stasis ulcer, gastroesophageal reflux, rheumatoid arthritis. PAST SURGICAL HISTORY: Significant for cervical surgery in 2011 at [facility]. CURRENT MEDICATIONS: The patient is taking Flomax 0.4 mg daily, Lasix , Protonix, Synthroid and atenolol. REVIEW OF SYSTEMS: As per HPI. PHYSICAL EXAMINATION VITAL SIGNS: Temperature afebrile, heart rate 52, blood pressure 138/99. HEENT: PERRLA intact. NECK: Supple. No carotid bruits or thyromegaly. CHEST: Clear to auscultation. HEART: S1 and S2 regular. ABDOMEN: Soft. EXTREMITIES: Clubbing and cyanosis negative. LABORATORY DATA: Blood workup as follows: WBC 9, hemoglobin 13.1, hematocrit 40.3, platelet count 214. Chemistry shows sodium 140, potassium 3, chloride 97, carbon dioxide 33, anion gap of 15, BUN 21, creatinine 1. IMPRESSION: This is an 83-year-old male with the past medical history significant for gastroesophageal reflux, rheumatoid arthritis, hypothyroidism, questionable history of congestive heart failure, admitted for cervical spine surgery because of fracture of cervical spine, history of cervical myelopathy in the past, history of rheumatoid arthritis and fracture of spine. CAT scan shows multilevel laminectomies, C5-C6 infusion and no interval change from before. RECOMMENDATIONS: We will put low dose of beta-emily and echo to assess LV function. Since it is an acute process, the patient needs surgery. We will clear with a high risk procedure. No definite history of congestive heart failure, no history of coronary artery disease, no definite history of documented coronary artery disease. The patient is functional and no history of chest pain and no history of any evidence of arrhythmia, ischemia, or CHF the patient's high risk. We will get echo to assess LV function, Lipid profile, TSH. Thank you Dr. Cardenas for providing us the opportunity in taking care of the patient, Richard Gonzalez. Jael Royal MD
[2018-03-22] MEDS: Pantoprazole 40 mg EC Tab PO SCH (05:57)
[2018-03-22] MEDS: Levothyroxine 25 MCG TAB PO SCH (05:57)
[2018-03-22 06:28] LABS: BASO # 0.02 K/mm3 (0.0-2.0); BASO % 0.2 % (0.0-3.0); EOS # 0.3 (0.0-0.7); EOS % 3.5 % (1.5-5.0); GRAN # 5.72 (1.4-6.5); GRAN % 69.7 % (50.0-68.0); HEMOGLOBIN 12.5 g/dL (14.0-18.0); LYMPH # 1.5 (1.2-3.4); LYMPH % 18.1 % (22.0-35.0); MEAN CORPUSCULAR HEMOGLOBIN 29.3 pg (25.0-35.0); MEAN CORPUSCULAR HGB CONC 31.9 g/dl (31.0-37.0); MEAN PLATELET VOLUME 10.9 fl (7.0-11.0); MONO # 0.7 (0.1-0.6); MONO % 8.5 % (1.0-6.0); RBC 4.26 10^6/uL (3.5-6.1); RED CELL DISTRIBUTION WIDTH 14.5 % (11.5-14.5); WHITE BLOOD COUNT 8.2 10^3/ul (4.5-11.0)
[2018-03-22 06:51] LABS: ALB/GLOB RATIO 1.2 (1.1-1.8); ALBUMIN 3.6 g/dL (3.0-4.8); ALT/SGPT 51 U/L (7-56); AST/SGOT 33 U/L (17-59); BLOOD UREA NITROGEN 18 mg/dL (7-21); CALCIUM 9.1 mg/dL (8.4-10.5); GFR AFRICAN-AMERICAN > 60; GFR NON-AFRICAN AMERICAN > 60; HDL CHOLESTEROL 20 mg/dL (29-60)
[2018-03-22 07:01] LABS: LDL CHOLESTEROL 74 mg/dL (0-129)
--- NOTE | 2018-03-22 07:31 | CP.PCM.PN ---
Subjective - Date & Time of Evaluation Date of Evaluation: 03/22/18 Time of Evaluation: 06:35 - Subjective Subjective: Lying in bed, awake, alert with neck brace Reason for consultation and follow up: Cardiac evaluation and risk stratification for spine surgery, history of hypertension,rheumatoid arthritis, GERD, cervical spine myelopathy Seen and examined by me and Dr. Royal Objective - Vital Signs/Intake and Output Vital Signs (last 24 hours): Temp Pulse Resp BP Pulse Ox 98.1 F 53 L 18 119/61 95 03/21/18 22:00 03/21/18 22:00 03/21/18 22:00 03/21/18 22:00 03/21/18 22:00 - Medications Medications: Current Medications Atenolol (Tenormin) 100 mg PO DAILY [facility] Furosemide (Lasix) 80 mg PO DAILY [facility] Latanoprost (Xalatan Opht) 0 ml OU HS [facility] Last Admin: 03/21/18 21:37 Dose: 1 ml Levothyroxine Sodium (Synthroid) 25 mcg PO 0600 [facility] Last Admin: 03/22/18 05:57 Dose: 25 mcg Pantoprazole Sodium (Protonix Ec Tab) 40 mg PO 0600 [facility] Last Admin: 03/22/18 05:57 Dose: 40 mg Potassium Chloride (K-Dur 20 Meq Er Tab) 20 meq PO BRK [facility] Sertraline HCl (Zoloft) 50 mg PO DAILY [facility] Tamsulosin HCl (Flomax) 0.4 mg PO DAILY [facility] Tramadol HCl (Ultram) 50 mg PO TID [facility] Last Admin: 03/22/18 06:31 Dose: 50 mg - Labs Labs: 03/22/18 06:10 03/22/18 06:10 PT 13.2 SECONDS (9.4-12.5) H 03/21/18 10:00 INR 1.14 (0.93-1.08) H 03/21/18 10:00 APTT 30.5 Seconds (25.1-36.5) 03/21/18 10:00 - Constitutional Appears: No Acute Distress - Head Exam Additional comments: neck brace - Eye Exam Eye Exam: Normal appearance - ENT Exam ENT Exam: Mucous Membranes Moist - Respiratory Exam Respiratory Exam: Clear to Ausculation Bilateral, NORMAL BREATHING PATTERN - Cardiovascular Exam Cardiovascular Exam: +S1, +S2 - GI/Abdominal Exam GI & Abdominal Exam: Soft, Normal Bowel Sounds - Extremities Exam Extremities Exam: Normal Capillary Refill Additional comments: with wrist braces - Neurological Exam Neurological Exam: Alert, Awake, Oriented x3 - Psychiatric Exam Psychiatric exam: Normal Affect, Normal Mood - Skin Skin Exam: Intact, Normal Color, Warm Assessment and Plan - Assessment and Plan (Free Text) Assessment: A 83 year old electively admitted for spine surgery. Consult was called for cardiac evaluation and risk stratification for spine surgery, history of hypertension,hypothyroidism, rheumatoid arthritis, GERD, cervical spine myelopathy, Cervical spine surgery in 2011 at [facility], recently had spine fracture (MRI and CT scan). High risk for surgery however with present status clear for spine surgery. Will closely follow up patient postoperatively. Plan: Cardiac status stable Heart rate and blood pressure controlled For spine surgery tomorrow On Atenolol 100 mg daily,Lasix 80 mg daily, Synthroid 25 mcg daily Kdur 20 meq daily Continue current treatment Continue current medications Will follow up Plan and treatment discussed with Dr. Royal
[2018-03-22] MEDS: Potassium Chloride 20 mEq ER Tab PO SCH (08:00)
--- NOTE | 2018-03-22 13:15 | HP ---
DATE OF EXAM: 03/22/2018 HISTORY OF PRESENT ILLNESS: The patient is an 83-year-old male, admitted through the emergency department on 03/21/2018 complaining of neck pain, numbness and weakness of his upper extremities bilaterally with decreased ability to ambulate and decreased ADL function. The patient has sustained a fracture of the cervical spine, which is unstable approximately 1 month ago, seen in consultation by Neurosurgery. There is no fever, no chills, no chest pain, no shortness of breath. PAST MEDICAL HISTORY: Includes degenerative joint disease, hypothyroidism, congestive heart failure. PAST SURGICAL HISTORY: The patient has no significant past surgical history. CURRENT MEDICATIONS: Include Flomax 0.4 mg daily for BPH, Lasix 80 mg daily, potassium chloride 20 mEq daily, Protonix 40 mg daily, Synthroid 25 mcg daily for hypothyroidism, Tenormin 100 mg daily, tramadol 50 mg three times daily, Xalatan drops to both eyes at bedtime and Zoloft 50 mg daily. ALLERGIES: THE PATIENT REPORTS ALLERGIES TO PENICILLIN AND DIPHTHERIA TOXOID. SOCIAL HISTORY: The patient denies any history of alcohol or tobacco use. He lives alone. He is independent with ADLs and IADLs. REVIEW OF SYSTEMS: The patient denies any abdominal pain. No melena. No bright red blood per rectum. Nor rash. No jaundice. PHYSICAL EXAMINATION: GENERAL: The patient is a well-developed, somewhat obese male, in no acute distress. VITAL SIGNS: Blood pressure 130/78, temperature 97.9, pulse 60, respiratory rate 20. HEENT: Head is normocephalic, atraumatic. Pupils equal, round, reactive to light. Extraocular movements intact. There is decreased hearing bilaterally. NECK: The patient is wearing a hard cervical collar. LUNGS: Clear. HEART: Regular rate and rhythm. ABDOMEN: Soft, nontender. Bowel sounds are normoactive. EXTREMITIES: There is trace bipedal edema with degenerative changes and decreased range of motion of the knee and hip joints bilaterally. NEUROLOGICAL: The patient is awake and oriented x3 without focal sensory or motor deficits. SKIN: Warm and dry. LABORATORY DATA: WBC is 8.2, hemoglobin 12.5, hematocrit 39.2. Sodium 142, potassium 4.1, chloride 100, CO2 of 33, BUN 18, creatinine 1, glucose 88. Chest x-ray shows no active disease. IMPRESSION: 1. Fracture of cervical spine. 2. Hypertension and hypertensive cardiovascular disease, congestive heart failure. 3. Degenerative joint disease/spinal stenosis. 4. History of hypothyroidism. 5. Benign prostatic hypertrophy. PLAN: The patient is admitted to the medical-surgical floor. We will obtain cardiac clearance from Dr. Denton/Lele preoperatively. There are no medical contraindications at this point for neck surgery and/or general anesthesia. The patient will be seen for surgery by Dr. Tomas Jeffery for Neurosurgery. MARÍA Tompkins MD
[2018-03-22] MEDS: Oxycodone/Acetaminophen 5/325 mg Tab PO PRN ×2 (16:36→21:12)
[2018-03-22] MEDS: Latanoprost 2.5 ml Opht Soln OU SCH (21:05)
[2018-03-23] MEDS: Levothyroxine 25 MCG TAB PO SCH (06:00)
[2018-03-23] MEDS: Pantoprazole 40 mg EC Tab PO SCH (06:00)
--- NOTE | 2018-03-23 07:32 | CP.PCM.PN ---
Subjective - Date & Time of Evaluation Date of Evaluation: 03/23/18 Time of Evaluation: 06:30 - Subjective Subjective: Lying in bed, awake, alert with neck brace/collar Reason for consultation and follow up: Cardiac evaluation and risk stratification for spine surgery, history of hypertension,rheumatoid arthritis, GERD, cervical spine myelopathy Seen and examined by me and Dr. Royal Objective - Vital Signs/Intake and Output Vital Signs (last 24 hours): Temp Pulse Resp BP Pulse Ox 99.5 F 66 20 125/78 100 03/22/18 22:00 03/23/18 06:15 03/22/18 22:00 03/23/18 06:15 03/22/18 22:00 Intake and Output: 03/23/18 03/23/18 06:59 18:59 Intake Total 360 Output Total 300 Balance 60 - Medications Medications: Current Medications Atenolol (Tenormin) 100 mg PO DAILY [facility] Last Admin: 03/23/18 06:15 Dose: 100 mg Furosemide (Lasix) 80 mg PO DAILY [facility] Last Admin: 03/22/18 09:38 Dose: 80 mg Latanoprost (Xalatan Opht) 0 ml OU HS [facility] Last Admin: 03/22/18 21:05 Dose: 1 ml Levothyroxine Sodium (Synthroid) 25 mcg PO 0600 [facility] Last Admin: 03/22/18 05:57 Dose: 25 mcg Oxycodone/Acetaminophen (Percocet 5/325 Mg Tab) 1 tab PO Q4H PRN PRN Reason: Pain, moderate (4-7) Stop: 03/25/18 16:04 Last Admin: 03/22/18 21:12 Dose: 1 tab Pantoprazole Sodium (Protonix Ec Tab) 40 mg PO 0600 [facility] Last Admin: 03/22/18 05:57 Dose: 40 mg Potassium Chloride (K-Dur 20 Meq Er Tab) 20 meq PO BRK [facility] Last Admin: 03/22/18 08:00 Dose: 20 meq Sertraline HCl (Zoloft) 50 mg PO DAILY [facility] Last Admin: 03/22/18 09:38 Dose: 50 mg Tamsulosin HCl (Flomax) 0.4 mg PO DAILY [facility] Last Admin: 03/22/18 09:38 Dose: 0.4 mg - Labs Labs: 03/22/18 06:10 03/22/18 06:10 PT 13.2 SECONDS (9.4-12.5) H 03/21/18 10:00 INR 1.14 (0.93-1.08) H 03/21/18 10:00 APTT 30.5 Seconds (25.1-36.5) 03/21/18 10:00 - Constitutional Appears: No Acute Distress - Head Exam Head Exam: NORMOCEPHALIC - Neck Exam Additional comments: neck collar - Respiratory Exam Respiratory Exam: Clear to Ausculation Bilateral, NORMAL BREATHING PATTERN - Cardiovascular Exam Cardiovascular Exam: +S1, +S2 - GI/Abdominal Exam GI & Abdominal Exam: Soft, Normal Bowel Sounds - Extremities Exam Extremities Exam: Normal Capillary Refill - Neurological Exam Neurological Exam: Alert, Awake, Oriented x3 - Psychiatric Exam Psychiatric exam: Normal Affect, Normal Mood - Skin Skin Exam: Intact, Normal Color, Warm Assessment and Plan - Assessment and Plan (Free Text) Assessment: A 83 year old electively admitted for spine surgery. Consult was called for cardiac evaluation and risk stratification for spine surgery, history of hypertension,hypothyroidism, rheumatoid arthritis, GERD, cervical spine myelopathy, Cervical spine surgery in 2011 at [place], recently had spine fracture (MRI and CT scan). High risk for surgery however with present status clear for spine surgery. Plan: For spine surgery today NPO post midnight maintained Cardiac status stable Heart rate and blood pressure controlled On Atenolol 100 mg daily,Lasix 80 mg daily, Synthroid 25 mcg daily Kdur 20 meq daily Continue current treatment Continue current medications Will follow up patient postoperatively Plan and treatment discussed with Dr. Royal
[2018-03-23] MEDS ORDERED: Absorbable Gelatin Sponge Size 100 ONE (07:41)
[2018-03-23] MEDS ORDERED: Lidocaine 1% w Epi 1:100,000 Inj ONE (07:41)
[2018-03-23] MEDS ORDERED: Thrombin Topical 20,000 Intl Units Spray Kit TOP ONE (07:42)
[2018-03-23] MEDS ORDERED: Vancomycin 1 g Inj ONE ×2 (08:02→12:38)
[2018-03-23] MEDS ORDERED: Bacitracin Ointment 30 GM TUBE ONE (08:02)
[2018-03-23] MEDS ORDERED: Liquid Adhesive TOP ONE (08:05)
[2018-03-23] MEDS ORDERED: Etomidate 20 mg/10ml Inj IV ONE (08:32)
[2018-03-23] MEDS ORDERED: Succinylcholine 200 mg/10 ml Inj IV ONE (08:32)
[2018-03-23] MEDS ORDERED: Propofol 10 mg/ml Inj (20 ML) ONE ×2 (08:35→11:56)
[2018-03-23] MEDS ORDERED: ePHEDrine 50 mg/ml Inj ONE (10:41)
[2018-03-23] MEDS ORDERED: HYDROmorphone 0.5 mg/0.5 ml ISec ONE (13:42)
[2018-03-23] MEDS: HYDROmorphone 0.5 mg/0.5 ml ISec IVP PRN ×3 (13:42→19:54)
[2018-03-23] MEDS ORDERED: Lactated Ringer's 1,000 ML IV SCH (13:45)
--- NOTE | 2018-03-23 15:20 | RAD ---
PROCEDURE: Fluoroscopy up to 1 hour HISTORY: CERVICAL FUSION C-1 , C-2 COMPARISON: TECHNIQUE: Fluoroscopy was provided in the operating room. 35.7 seconds of fluoro time. Cumulative dose 7.58 mGy. One image was submitted FINDINGS: A single image shows surgical hardware dorsal to the cervical spine and the occipital bone IMPRESSION: As above
--- NOTE | 2018-03-23 15:22 | CARD ---
APPROVED REPORT EXAM: Two-dimensional and M-mode echocardiogram with Doppler and color Doppler. INDICATION Pre-Op 2D DIMENSIONS Left Atrium (2D)4.6 (1.6-4.0cm)IVSd0.9 (0.7-1.1cm) LVDd4.8 (3.9-5.9cm)PWd0.9 (0.7-1.1cm) LVDs3.2 (2.5-4.0cm)FS (%) 32.9 % LVEF (%)61.3 (>50%) M-Mode DIMENSIONS Aortic Root3.30 (2.2-3.7cm)Aortic Cusp Exc.1.90 (1.5-2.0cm) Aortic Valve AoV Peak Qaeatcxh509.0cm/sAoV VTI37.7cmAO Peak GR.10mmHg LVOT Peak Qnmnccmu871.0cm/sLVOT VTI32.60cmAO Mean GR.5mmHg Mitral Valve MV E Svwaybtp29.4cm/sMV A Uwgcmlso879.0cm/sE/A ratio0.8 TDI Lateral E' Peak V10.00cm/sMedial E' Peak V7.24cm/sE/Lateral E'8.4 E/Medial E'11.7 Pulmonary Valve PV Peak Fcgzhtbc39.1cm/sPV Peak Grad.2mmHg Tricuspid Valve TR Peak Lcwciaqs894no/sRAP DMCTVBFK69phQlUX Peak Gr.31mmHg TQIR66nhHw LEFT VENTRICLE The left ventricle is normal size. There is normal left ventricular wall thickness. The left ventricular function is normal.EF-60% There is normal LV segmental wall motion. Transmitral Doppler flow pattern is Grade III-reversible restrictive diastolic dysfunction. There is no ventricular septal defect visualized. There is no left ventricular aneurysm. There is no mass noted in the left ventricle. RIGHT VENTRICLE The right ventricle is normal size. There is normal right ventricular wall thickness. The right ventricular systolic function is normal. ATRIA The left atrium is mildly dilated. The right atrium size is normal. The interatrial septum is intact with no evidence for an atrial septal defect. AORTIC VALVE The aortic valve is calcified but opens well. The aortic valve is moderately sclerotic. No aortic regurgitation is present. There is no aortic valvular stenosis. There is no aortic valvular vegetation. MITRAL VALVE The mitral valve is thickened but opens well. Mitral regurgitation is mild. There is no mitral valve stenosis. There is no evidence of mitral valve prolapse. TRICUSPID VALVE The tricuspid valve leaflets are thickened , but open well. There is mild tricuspid regurgitation.RVSP-41 mmof hg There is no tricuspid valve stenosis. There is no tricuspid valve prolapse or vegetation. PULMONIC VALVE The pulmonary valve is normal in structure. There is trace pulmonic valvular regurgitation. There is no pulmonic valvular stenosis. GREAT VESSELS The aortic root is normal in size. The ascending aorta is normal in size. The pulmonary artery is normal. The IVC is normal in size and collapses >50% with inspiration. PERICARDIAL EFFUSION There is no pleural effusion. There is no pericardial effusion. <Conclusion> The left ventricle is normal size. There is normal left ventricular wall thickness. The left ventricular function is normal.EF-60% Mitral regurgitation is mild. There is mild tricuspid regurgitation.RVSP-41 mmof hg There is no pericardial effusion.
[2018-03-23] MEDS ORDERED: [UNRECOGNIZED DRUG - OTHER] IV SCH ×2 (15:30→17:30)
[2018-03-23] MEDS ORDERED: SODIUM BICARBONATE IV SCH ×2 (15:30→17:30)
[2018-03-23] MEDS ORDERED: DEXTROSE IV SCH ×2 (15:30→17:30)
--- NOTE | 2018-03-23 17:12 | CP.PCM.CON ---
<Shmuel Tatum - Last Filed: 03/23/18 17:03> History of Present Illness - History of Present Illness History of Present Illness: ICU Consult Note: Dr. Sanford Reason For Consult: Recent Cervical Fusion Surgery HPI: Patient is an 83 year old male with past medical history of degenerative joint disease, hypothyroidism, CHF, GERD, HTN and rheumatoid arthritis presented to [facility] for evaluation of chronic numbness and tingling. In the past month, patient has had an MRI and CT that revealed C1-C2 spine fracture. Patient was risk stratified as high risk by cardiology; Patient has been referred for ICU evaluation for neurological checks s/p cervical spine surgery. Review of Systems: 12 point ROS obtained and negative except as per HPI Surgical History: No signficant surg hx Medical History: CHF, GERD, HTN, RA Allergies: Diphtheria Toxoid, PCN Social History: No alcohol, no tobacco Home Meds: Reviewed, as per MAR Family History: Non-contributory Past Patient History - Infectious Disease Hx of Infectious Diseases: None - Tetanus Immunizations Tetanus Immunization: Unknown - Past Social History Smoking Status: Former Smoker - CARDIAC Hx Cardiac Disorders: Yes Hx Congestive Heart Failure: Yes Hx Hypercholesterolemia: Yes Hx Hypertension: Yes - PULMONARY Hx Respiratory Disorders: Yes (USED TO SMOKE CIGARETTES) Hx Chronic Obstructive Pulmonary Disease (COPD): Yes - NEUROLOGICAL Hx Neurological Disorder: Yes (CERVICAL SPINE FX,PARESTHESIAS,MENIERE'S DSE) - HEENT Hx HEENT Problems: Yes (Wears eye glassess) Hx Deafness: Yes (JANET.) Other/Comment: Janet. HEARING AIDS, menieres disease, dry eyes b/l - RENAL Hx Chronic Kidney Disease: No - ENDOCRINE/METABOLIC Hx Hypothyroidism: Yes - HEMATOLOGICAL/ONCOLOGICAL Hx Blood Transfusions: No - INTEGUMENTARY Hx Dermatological Problems: Yes Other/Comment: redness left foot, callous bottom of right foot, rredness and swelling toes 1 3 4 of left foot, ble discolored, dry skin right heel. BILATERAL BUTTOCKS WITH STAGE 2 PRESSURE ULCER TO LOWER BUTTOCKS. RIGHT CHEST WALL DRY SKIN AREA,FLAKY. BILATERAL LE LIGHT BROWN SKIN DISCOLORATION WITH FLAKY SKIN,THICKENED NAILS WITH R 2ND TOE WITH A LARGE THICKENED GROWTH. - MUSCULOSKELETAL/RHEUMATOLOGICAL Hx Musculoskeletal Disorders: Yes (CARPAL TUNNEL,BURSITIS RIGHT HAND H/O, CERVICAL RADICULOPATHY,L KNEE SX.) - GASTROINTESTINAL Hx Gastrointestinal Disorders: (hx diverticulitis) - GENITOURINARY/GYNECOLOGICAL Hx Genitourinary Disorders: Yes Hx Prostate Problems: Yes (bph) - PSYCHIATRIC Hx Emotional Abuse: No Hx Physical Abuse: No Hx Substance Use: No - SURGICAL HISTORY Hx Surgeries: Yes - ANESTHESIA Hx Anesthesia Reactions: No Meds Allergies/Adverse Reactions: Allergies Allergy/AdvReac Type Severity Reaction Status Date / Time diphtheria toxoid,adsorbed Allergy RASH Verified 03/21/18 11:50 Penicillins Allergy RASH Verified 03/21/18 11:50 - Medications Medications: Current Medications Atenolol (Tenormin) 100 mg PO DAILY [facility] Last Admin: 03/23/18 06:15 Dose: 100 mg Furosemide (Lasix) 80 mg PO DAILY [facility] Last Admin: 03/22/18 09:38 Dose: 80 mg Hydromorphone HCl (Dilaudid) 0.5 mg IVP Q15M PRN PRN Reason: Pain, moderate (4-7) Stop: 03/24/18 13:39 Last Admin: 03/23/18 15:24 Dose: 0.5 mg Hydromorphone HCl (Dilaudid) 0.5 mg IVP Q3 PRN PRN Reason: Pain, severe (8-10) Sodium Bicarbonate 20 meq/ (Dextrose/Sodium Chloride) 1,020 mls @ 50 mls/hr IV .[id number] [facility] Latanoprost (Xalatan Opht) 0 ml OU HS [facility] Last Admin: 03/22/18 21:05 Dose: 1 ml Levothyroxine Sodium (Synthroid) 25 mcg PO 0600 [facility] Last Admin: 03/23/18 06:00 Dose: Not Given Oxycodone/Acetaminophen (Percocet 5/325 Mg Tab) 1 tab PO Q4H PRN PRN Reason: Pain, moderate (4-7) Stop: 03/25/18 16:04 Last Admin: 03/22/18 21:12 Dose: 1 tab Oxycodone/Acetaminophen (Percocet 5/325 Mg Tab) 1 tab PO Q4H PRN PRN Reason: Pain, moderate (4-7) Stop: 03/26/18 15:31 Pantoprazole Sodium (Protonix Ec Tab) 40 mg PO 0600 [facility] Last Admin: 03/23/18 06:00 Dose: Not Given Potassium Chloride (K-Dur 20 Meq Er Tab) 20 meq PO BRK [facility] Last Admin: 03/22/18 08:00 Dose: 20 meq Sertraline HCl (Zoloft) 50 mg PO DAILY [facility] Last Admin: 03/22/18 09:38 Dose: 50 mg Tamsulosin HCl (Flomax) 0.4 mg PO DAILY [facility] Last Admin: 03/22/18 09:38 Dose: 0.4 mg Physical Exam - Constitutional Appears: Non-toxic, No Acute Distress - Head Exam Head Exam: ATRAUMATIC, NORMAL INSPECTION, NORMOCEPHALIC - Eye Exam Eye Exam: EOMI, Normal appearance, PERRL Pupil Exam: NORMAL ACCOMODATION, PERRL - ENT Exam ENT Exam: Mucous Membranes Moist, Normal Exam Additional comments: Patient is in C-collar - Neck Exam Neck exam: Positive for: Normal Inspection - Respiratory Exam Respiratory Exam: Clear to Auscultation Bilateral, NORMAL BREATHING PATTERN - Cardiovascular Exam Cardiovascular Exam: REGULAR RHYTHM - GI/Abdominal Exam GI & Abdominal Exam: Normal Bowel Sounds, Soft. absent: Tenderness - Extremities Exam Extremities exam: Positive for: normal inspection - Back Exam Back exam: NORMAL INSPECTION - Neurological Exam Neurological exam: Alert, CN II-XII Intact, Normal Gait, Oriented x3, Reflexes Normal - Psychiatric Exam Psychiatric exam: Normal Affect, Normal Mood - Skin Skin Exam: Dry, Intact, Normal Color, Warm Results - Vital Signs Recent Vital Signs: Last Vital Signs Temp 98 F 03/23/18 15:02 Pulse 50 L 03/23/18 15:02 Resp 12 03/23/18 15:02 BP 135/66 03/23/18 15:02 Pulse Ox 98 03/23/18 15:02 - Labs Result Diagrams: 03/22/18 06:10 03/22/18 06:10 Assessment & Plan - Assessment and Plan (Free Text) Assessment: 83 year old male with pertinent medical history of degenerative disc disease under ICU care to monitor neurological function s/p O1-C2 Fusion Surgery. Plan Neurology - Neuro checks q4 - Maintain normothermia Cardiology - Resume home lasix, hold Tenormin for now - Maintain MAP > 65 Pulm - Maintain O2 sats at > 92% - Incentive Spirometer GI - PTX PPX - CLD - Sodium bicarb + Dextrose - Tamsulosin Heme - No chemical DVT PPX until approved by surgery ID - ABx per Surgery Endo - Maintain euglycemia - Continue home Synthroid <Viet Sanford - Last Filed: 03/26/18 14:33> Meds - Medications Medications: Current Medications Acetaminophen (Tylenol 325mg Tab) 650 mg PO Q6H PRN PRN Reason: Fever >100.4 F Atenolol (Tenormin) 50 mg PO DAILY [facility] Last Admin: 03/26/18 10:38 Dose: 50 mg Bacitracin (Bacitracin) 1 gm TOP Q12 [facility] Carbamide Peroxide (Debrox Ear Drops) 0 ml BID [facility] Stop: 03/27/18 10:01 Last Admin: 03/26/18 10:56 Dose: 5 drop Cephalexin Monohydrate (Keflex) 500 mg PO Q6 [facility] PRN Reason: Protocol Stop: 04/02/18 00:01 Last Admin: 03/26/18 11:00 Dose: 500 mg Furosemide (Lasix) 80 mg PO DAILY [facility] Last Admin: 03/26/18 10:37 Dose: 80 mg Hydromorphone HCl (Dilaudid) 0.5 mg IVP Q3 PRN PRN Reason: Pain, severe (8-10) Last Admin: 03/26/18 00:21 Dose: 0.5 mg Latanoprost (Xalatan Opht) 0 ml OU HS [facility] Last Admin: 03/25/18 22:15 Dose: 2.5 ml Levothyroxine Sodium (Synthroid) 25 mcg PO 0600 [facility] Last Admin: 03/26/18 05:01 Dose: 25 mcg Meloxicam (Mobic) 15 mg PO DAILY [facility] Last Admin: 03/26/18 10:38 Dose: 15 mg Oxycodone/Acetaminophen (Percocet 5/325 Mg Tab) 1 tab PO Q4H PRN PRN Reason: Pain, moderate (4-7) Stop: 03/26/18 15:31 Last Admin: 03/26/18 10:45 Dose: 1 tab Pantoprazole Sodium (Protonix Ec Tab) 40 mg PO 0600 [facility] Last Admin: 03/26/18 05:01 Dose: 40 mg Potassium Chloride (K-Dur 20 Meq Er Tab) 20 meq PO BRK [facility] Last Admin: 03/26/18 09:00 Dose: 20 meq Sertraline HCl (Zoloft) 50 mg PO DAILY [facility] Last Admin: 03/26/18 10:38 Dose: 50 mg Tamsulosin HCl (Flomax) 0.4 mg PO DAILY [facility] Last Admin: 03/26/18 10:38 Dose: 0.4 mg Zolpidem Tartrate (Ambien) 10 mg PO HS PRN; Protocol PRN Reason: Insomnia Results - Vital Signs Recent Vital Signs: Last Vital Signs Temp 98.4 F 03/26/18 12:00 Pulse 64 03/26/18 12:00 Resp 18 03/26/18 12:00 BP 92/54 L 03/26/18 12:00 Pulse Ox 95 03/26/18 05:53 - Labs Result Diagrams: 03/24/18 05:30 03/24/18 05:30 Attending/Attestation - Attestation I have personally seen and examined this patient.: Yes I have fully participated in the care of the patient.: Yes I have reviewed all pertinent clinical information: Yes Notes (Text): 03/26/18 14:30 83 yo male with C-spine fracture and now s/p surgery for C-spine stabilization, came to icu for frequent neuro exams. will also consider pulm toilet, bronchodilators, IS, chest PT once cleared by nsx, dvt/gi prophylaxis.
--- NOTE | 2018-03-23 17:20 | CP.PCM.PN ---
Subjective - Date & Time of Evaluation Date of Evaluation: 03/23/18 Time of Evaluation: 17:00 - Subjective Subjective: post-op, somewhat lethargic, arousable, no distress Objective - Vital Signs/Intake and Output Vital Signs (last 24 hours): Temp Pulse Resp BP Pulse Ox 98 F 50 L 12 135/66 98 03/23/18 15:02 03/23/18 15:02 03/23/18 15:02 03/23/18 15:02 03/23/18 15:02 Intake and Output: 03/23/18 03/23/18 06:59 18:59 Intake Total 360 0 Output Total 300 Balance 60 0 - Medications Medications: Current Medications Atenolol (Tenormin) 100 mg PO DAILY [facility] Last Admin: 03/23/18 06:15 Dose: 100 mg Furosemide (Lasix) 80 mg PO DAILY [facility] Last Admin: 03/22/18 09:38 Dose: 80 mg Hydromorphone HCl (Dilaudid) 0.5 mg IVP Q15M PRN PRN Reason: Pain, moderate (4-7) Stop: 03/24/18 13:39 Last Admin: 03/23/18 15:24 Dose: 0.5 mg Hydromorphone HCl (Dilaudid) 0.5 mg IVP Q3 PRN PRN Reason: Pain, severe (8-10) Sodium Bicarbonate 20 meq/ (Dextrose/Sodium Chloride) 1,020 mls @ 50 mls/hr IV .[id number] [facility] Latanoprost (Xalatan Opht) 0 ml OU HS [facility] Last Admin: 03/22/18 21:05 Dose: 1 ml Levothyroxine Sodium (Synthroid) 25 mcg PO 0600 [facility] Last Admin: 03/23/18 06:00 Dose: Not Given Oxycodone/Acetaminophen (Percocet 5/325 Mg Tab) 1 tab PO Q4H PRN PRN Reason: Pain, moderate (4-7) Stop: 03/25/18 16:04 Last Admin: 03/22/18 21:12 Dose: 1 tab Oxycodone/Acetaminophen (Percocet 5/325 Mg Tab) 1 tab PO Q4H PRN PRN Reason: Pain, moderate (4-7) Stop: 03/26/18 15:31 Pantoprazole Sodium (Protonix Ec Tab) 40 mg PO 0600 [facility] Last Admin: 03/23/18 06:00 Dose: Not Given Potassium Chloride (K-Dur 20 Meq Er Tab) 20 meq PO BRK [facility] Last Admin: 03/22/18 08:00 Dose: 20 meq Sertraline HCl (Zoloft) 50 mg PO DAILY [facility] Last Admin: 03/22/18 09:38 Dose: 50 mg Tamsulosin HCl (Flomax) 0.4 mg PO DAILY [facility] Last Admin: 03/22/18 09:38 Dose: 0.4 mg - Labs Labs: 03/22/18 06:10 03/22/18 06:10 PT 13.2 SECONDS (9.4-12.5) H 03/21/18 10:00 INR 1.14 (0.93-1.08) H 03/21/18 10:00 APTT 30.5 Seconds (25.1-36.5) 03/21/18 10:00 - Neck Exam Additional comments: soft c-collar intact - Respiratory Exam Respiratory Exam: Clear to Ausculation Bilateral, NORMAL BREATHING PATTERN - Cardiovascular Exam Cardiovascular Exam: Bradycardia, REGULAR RHYTHM - GI/Abdominal Exam GI & Abdominal Exam: Soft, Normal Bowel Sounds - Extremities Exam Extremities Exam: Normal Inspection - Neurological Exam Neurological Exam: Altered - Skin Skin Exam: Dry, Warm Assessment and Plan - Assessment and Plan (Free Text) Assessment: 1. Post-op, fracture C-spine 2. HTN/HCVD/CHF 3. DJD/spinal stenosis 4. Hypothyroidism Plan: continue post-op ICU monitoring, cardio & NSGY follow-up
[2018-03-23] MEDS: Potassium Chloride 20 mEq ER Tab PO SCH (17:23)
[2018-03-23] MEDS: Oxycodone/Acetaminophen 5/325 mg Tab PO PRN (21:48)
[2018-03-24] MEDS: HYDROmorphone 0.5 mg/0.5 ml ISec IVP PRN ×2 (01:16→05:30)
[2018-03-24] MEDS: Latanoprost 2.5 ml Opht Soln OU SCH ×2 (04:55→22:27)
[2018-03-24] MEDS: Levothyroxine 25 MCG TAB PO SCH (05:31)
[2018-03-24] MEDS: Pantoprazole 40 mg EC Tab PO SCH (05:31)
[2018-03-24 06:18] LABS: MEAN CELL VOLUME 91.4 fl (80.0-105.0); MEAN CORPUSCULAR HEMOGLOBIN 29.5 pg (25.0-35.0); MEAN CORPUSCULAR HGB CONC 32.3 g/dl (31.0-37.0); MEAN PLATELET VOLUME 11.1 fl (7.0-11.0); RBC 4.07 10^6/uL (3.5-6.1); RED CELL DISTRIBUTION WIDTH 14.3 % (11.5-14.5); WHITE BLOOD COUNT 14.2 10^3/ul (4.5-11.0)
[2018-03-24 06:31] LABS: BLOOD UREA NITROGEN 17 mg/dL (7-21); CALCIUM 8.9 mg/dL (8.4-10.5); GFR AFRICAN-AMERICAN > 60; GFR NON-AFRICAN AMERICAN > 60
--- NOTE | 2018-03-24 09:20 | CP.PCM.PN ---
Subjective - Date & Time of Evaluation Date of Evaluation: 03/24/18 Time of Evaluation: 09:17 - Subjective Subjective: SPINE - POD #1 Pt resting in bed in ICU. Comfortable. Taking clear liquids. VSS. Afebrile. Moving all extremities. Plan: OK from our viewpoint to transfer to Med-Surg floor. Mobilize as tolerated. Prob [facility] transfer Objective - Vital Signs/Intake and Output Vital Signs (last 24 hours): Temp Pulse Resp BP Pulse Ox 99.8 F H 48 L 17 102/42 L 97 03/23/18 16:00 03/24/18 06:00 03/24/18 06:00 03/24/18 06:00 03/24/18 06:00 Intake and Output: 03/24/18 03/24/18 06:59 18:59 Intake Total 400 Output Total 140 Balance 260 - Medications Medications: Current Medications Acetaminophen (Tylenol 325mg Tab) 650 mg PO Q6H PRN PRN Reason: Fever >100.4 F Atenolol (Tenormin) 100 mg PO DAILY [facility] Last Admin: 03/23/18 17:24 Dose: Not Given Furosemide (Lasix) 80 mg PO DAILY [facility] Last Admin: 03/23/18 17:22 Dose: 80 mg Hydromorphone HCl (Dilaudid) 0.5 mg IVP Q15M PRN PRN Reason: Pain, moderate (4-7) Stop: 03/24/18 13:39 Last Admin: 03/23/18 15:24 Dose: 0.5 mg Hydromorphone HCl (Dilaudid) 0.5 mg IVP Q3 PRN PRN Reason: Pain, severe (8-10) Last Admin: 03/24/18 05:30 Dose: 0.5 mg Sodium Bicarbonate 20 meq/ (Dextrose/Sodium Chloride) 1,020 mls @ 100 mls/hr IV .[id number] [facility] Last Admin: 03/23/18 21:46 Dose: 100 mls/hr Latanoprost (Xalatan Opht) 0 ml OU HS [facility] Last Admin: 03/24/18 04:55 Dose: Not Given Levothyroxine Sodium (Synthroid) 25 mcg PO 0600 [facility] Last Admin: 03/24/18 05:31 Dose: 25 mcg Oxycodone/Acetaminophen (Percocet 5/325 Mg Tab) 1 tab PO Q4H PRN PRN Reason: Pain, moderate (4-7) Stop: 03/25/18 16:04 Last Admin: 03/23/18 21:48 Dose: 1 tab Oxycodone/Acetaminophen (Percocet 5/325 Mg Tab) 1 tab PO Q4H PRN PRN Reason: Pain, moderate (4-7) Stop: 03/26/18 15:31 Pantoprazole Sodium (Protonix Ec Tab) 40 mg PO 0600 [facility] Last Admin: 03/24/18 05:31 Dose: 40 mg Potassium Chloride (K-Dur 20 Meq Er Tab) 20 meq PO BRK [facility] Last Admin: 03/23/18 17:23 Dose: 20 meq Sertraline HCl (Zoloft) 50 mg PO DAILY [facility] Last Admin: 03/23/18 17:23 Dose: 50 mg Tamsulosin HCl (Flomax) 0.4 mg PO DAILY [facility] Last Admin: 03/23/18 17:27 Dose: 0.4 mg - Labs Labs: 03/24/18 05:30 03/24/18 05:30 PT 13.2 SECONDS (9.4-12.5) H 03/21/18 10:00 INR 1.14 (0.93-1.08) H 03/21/18 10:00 APTT 30.5 Seconds (25.1-36.5) 03/21/18 10:00
[2018-03-24] MEDS: Potassium Chloride 20 mEq ER Tab PO SCH (09:58)
[2018-03-24] MEDS: Oxycodone/Acetaminophen 5/325 mg Tab PO PRN ×3 (10:55→22:33)
--- NOTE | 2018-03-24 12:42 | PN ---
DATE: 03/24/2018 LO[employer] CONSULTANT NOTE SUBJECTIVE: Patient is resting in bed, very comfortable, no pain, O2 via nasal cannula. He has his neck collar on. PHYSICAL EXAMINATION: VITAL SIGNS: Note that his temperature is 99.8, pulse is 48, respirations are 17, BP is 102/42, O2 saturation is 97%. HEENT: Head is atraumatic, normocephalic. Eyes reactive to light. Ears, nose, and throat seemed to be within normal limits. NECK: Supple. No JVD. No thyroid enlargement. No lymph nodes. HEART: Regular rate and rhythm. Normal S1 and S2, but slightly bradycardic. LUNGS: Reveal good breath sounds bilaterally. ABDOMEN: Soft, decreased bowel sounds. GENITALIA: Deferred. RECTAL: Deferred. MUSCULOSKELETAL: No joint deformities. EXTREMITIES: Reveal trace lower extremity edema. NEUROLOGIC: Patient seems to be grossly intact. LABORATORY DATA: White count is 14.2, hemoglobin 12, hematocrit 37.2, and platelets 168,000. Sodium is 138, potassium 4.5, chloride 99, CO2 of 27. BUN of 17, creatinine is 0.9. Glucose of 143. IMPRESSION: The patient had cervical spine fracture that required cervical spine fusion. Has history of hypertension, arthritis, congestive heart failure as well as gastroesophageal reflux disease, and is noted at this time to have bradycardia. PLAN: Patient will continue to use the cervical collar. He is on IV fluids, D5 1/2, and is getting Dilaudid for pain. He is getting some Flomax as well as some Lasix. The patient is on Synthroid and he is getting Zoloft as well. We will continue to treat aggressively along with the other consultants and the primary care doctor. Bryan Villa MD
--- NOTE | 2018-03-24 12:57 | CP.PCM.PN ---
Subjective - Date & Time of Evaluation Date of Evaluation: 03/24/18 Time of Evaluation: 10:30 - Subjective Subjective: c/o mild nech discomfort, insomnia, denies chest pain, no SOB Objective - Vital Signs/Intake and Output Vital Signs (last 24 hours): Temp Pulse Resp BP Pulse Ox 99.8 F H 45 L 17 106/49 L 97 03/23/18 16:00 03/24/18 10:01 03/24/18 06:00 03/24/18 09:58 03/24/18 06:00 Intake and Output: 03/24/18 03/24/18 06:59 18:59 Intake Total 400 Output Total 140 Balance 260 - Medications Medications: Current Medications Acetaminophen (Tylenol 325mg Tab) 650 mg PO Q6H PRN PRN Reason: Fever >100.4 F Atenolol (Tenormin) 50 mg PO DAILY [facility] Furosemide (Lasix) 80 mg PO DAILY [facility] Last Admin: 03/24/18 09:58 Dose: 80 mg Hydromorphone HCl (Dilaudid) 0.5 mg IVP Q15M PRN PRN Reason: Pain, moderate (4-7) Stop: 03/24/18 13:39 Last Admin: 03/23/18 15:24 Dose: 0.5 mg Hydromorphone HCl (Dilaudid) 0.5 mg IVP Q3 PRN PRN Reason: Pain, severe (8-10) Last Admin: 03/24/18 05:30 Dose: 0.5 mg Latanoprost (Xalatan Opht) 0 ml OU HS [facility] Last Admin: 03/24/18 04:55 Dose: Not Given Levothyroxine Sodium (Synthroid) 25 mcg PO 0600 [facility] Last Admin: 03/24/18 05:31 Dose: 25 mcg Oxycodone/Acetaminophen (Percocet 5/325 Mg Tab) 1 tab PO Q4H PRN PRN Reason: Pain, moderate (4-7) Stop: 03/25/18 16:04 Last Admin: 03/24/18 10:55 Dose: 1 tab Oxycodone/Acetaminophen (Percocet 5/325 Mg Tab) 1 tab PO Q4H PRN PRN Reason: Pain, moderate (4-7) Stop: 03/26/18 15:31 Pantoprazole Sodium (Protonix Ec Tab) 40 mg PO 0600 [facility] Last Admin: 03/24/18 05:31 Dose: 40 mg Potassium Chloride (K-Dur 20 Meq Er Tab) 20 meq PO BRK [facility] Last Admin: 03/24/18 09:58 Dose: 20 meq Sertraline HCl (Zoloft) 50 mg PO DAILY [facility] Last Admin: 03/24/18 09:58 Dose: 50 mg Tamsulosin HCl (Flomax) 0.4 mg PO DAILY [facility] Last Admin: 03/24/18 09:58 Dose: 0.4 mg Zolpidem Tartrate (Ambien) 10 mg PO HS PRN; Protocol PRN Reason: Insomnia - Labs Labs: 03/24/18 05:30 03/24/18 05:30 PT 13.2 SECONDS (9.4-12.5) H 03/21/18 10:00 INR 1.14 (0.93-1.08) H 03/21/18 10:00 APTT 30.5 Seconds (25.1-36.5) 03/21/18 10:00 - Neck Exam Additional comments: collar/dressings clean/intact - Respiratory Exam Respiratory Exam: Clear to Ausculation Bilateral, NORMAL BREATHING PATTERN - Cardiovascular Exam Cardiovascular Exam: Bradycardia - GI/Abdominal Exam GI & Abdominal Exam: Soft, Normal Bowel Sounds - Extremities Exam Extremities Exam: Normal Inspection - Neurological Exam Neurological Exam: Alert, Awake - Skin Skin Exam: Dry, Warm Assessment and Plan (1) Fracture, cervical vertebra Status: Acute (2) DJD (degenerative joint disease) Status: Acute (3) Bradycardia Status: Acute - Assessment and Plan (Free Text) Plan: continue post-op care, decrease atenolol to 50mg/day for bradycardia, DC IVF, medically stable for transfer to telemetry
--- NOTE | 2018-03-25 00:15 | CP.PCM.PN ---
Subjective - Date & Time of Evaluation Date of Evaluation: 03/25/18 Time of Evaluation: 00:14 - Subjective Subjective: S:Patient was seen at bedside. He had Alaniz catheter that was discontinued at 5 PM. Now unable to pass urine. Has discomfort from not passing urine. Bladder scan showd 440 CC of urine. Medical record was reviewed. O: Last Vital Signs 3 Temp 98.9 F 03/25/18 00:00 Pulse 61 03/25/18 00:00 Resp 20 03/25/18 00:00 BP 127/62 03/25/18 00:00 Pulse Ox 93 L 03/25/18 00:00 Awake, alert, not in distress. LUNGS: Normal breathing pattern. A: Urinary retention. P:Re insertion of Alaniz catheter. Objective - Vital Signs/Intake and Output Vital Signs (last 24 hours): Temp Pulse Resp BP Pulse Ox 99.4 F 63 18 133/63 95 03/24/18 18:00 03/24/18 18:00 03/24/18 18:00 03/24/18 18:00 03/24/18 18:00 Intake and Output: 03/24/18 03/25/18 18:59 06:59 Intake Total 1020 Output Total 1100 Balance -80 - Medications Medications: Current Medications Acetaminophen (Tylenol 325mg Tab) 650 mg PO Q6H PRN PRN Reason: Fever >100.4 F Atenolol (Tenormin) 50 mg PO DAILY [facility] Furosemide (Lasix) 80 mg PO DAILY [facility] Last Admin: 03/24/18 09:58 Dose: 80 mg Hydromorphone HCl (Dilaudid) 0.5 mg IVP Q3 PRN PRN Reason: Pain, severe (8-10) Last Admin: 03/24/18 05:30 Dose: 0.5 mg Latanoprost (Xalatan Opht) 0 ml OU HS [facility] Last Admin: 03/24/18 22:27 Dose: 2.5 ml Levothyroxine Sodium (Synthroid) 25 mcg PO 0600 [facility] Last Admin: 03/24/18 05:31 Dose: 25 mcg Oxycodone/Acetaminophen (Percocet 5/325 Mg Tab) 1 tab PO Q4H PRN PRN Reason: Pain, moderate (4-7) Stop: 03/25/18 16:04 Last Admin: 03/24/18 22:33 Dose: 1 tab Oxycodone/Acetaminophen (Percocet 5/325 Mg Tab) 1 tab PO Q4H PRN PRN Reason: Pain, moderate (4-7) Stop: 03/26/18 15:31 Pantoprazole Sodium (Protonix Ec Tab) 40 mg PO 0600 [facility] Last Admin: 03/24/18 05:31 Dose: 40 mg Potassium Chloride (K-Dur 20 Meq Er Tab) 20 meq PO BRK [facility] Last Admin: 03/24/18 09:58 Dose: 20 meq Sertraline HCl (Zoloft) 50 mg PO DAILY [facility] Last Admin: 03/24/18 09:58 Dose: 50 mg Tamsulosin HCl (Flomax) 0.4 mg PO DAILY [facility] Last Admin: 03/24/18 09:58 Dose: 0.4 mg Zolpidem Tartrate (Ambien) 10 mg PO HS PRN; Protocol PRN Reason: Insomnia - Labs Labs: 03/24/18 05:30 03/24/18 05:30 PT 13.2 SECONDS (9.4-12.5) H 03/21/18 10:00 INR 1.14 (0.93-1.08) H 03/21/18 10:00 APTT 30.5 Seconds (25.1-36.5) 03/21/18 10:00
[2018-03-25] MEDS: Oxycodone/Acetaminophen 5/325 mg Tab PO PRN ×3 (03:34→14:41)
[2018-03-25] MEDS: Pantoprazole 40 mg EC Tab PO SCH (05:24)
[2018-03-25] MEDS: Levothyroxine 25 MCG TAB PO SCH (05:24)
[2018-03-25] MEDS: HYDROmorphone 0.5 mg/0.5 ml ISec IVP PRN ×2 (05:25→19:28)
[2018-03-25] MEDS: Potassium Chloride 20 mEq ER Tab PO SCH (08:18)
--- NOTE | 2018-03-25 09:30 | CP.PCM.PN ---
Subjective - Date & Time of Evaluation Date of Evaluation: 03/25/18 Time of Evaluation: 09:15 - Subjective Subjective: NAD, denies chest pain, no SOB Objective - Vital Signs/Intake and Output Vital Signs (last 24 hours): Temp Pulse Resp BP Pulse Ox 99.1 F 60 19 104/51 L 96 03/25/18 06:07 03/25/18 06:07 03/25/18 06:07 03/25/18 06:07 03/25/18 06:07 Intake and Output: 03/25/18 03/25/18 06:59 18:59 Intake Total 180 Output Total 550 Balance -370 - Medications Medications: Current Medications Acetaminophen (Tylenol 325mg Tab) 650 mg PO Q6H PRN PRN Reason: Fever >100.4 F Atenolol (Tenormin) 50 mg PO DAILY [facility] Furosemide (Lasix) 80 mg PO DAILY [facility] Last Admin: 03/24/18 09:58 Dose: 80 mg Hydromorphone HCl (Dilaudid) 0.5 mg IVP Q3 PRN PRN Reason: Pain, severe (8-10) Last Admin: 03/25/18 05:25 Dose: 0.5 mg Latanoprost (Xalatan Opht) 0 ml OU HS [facility] Last Admin: 03/24/18 22:27 Dose: 2.5 ml Levothyroxine Sodium (Synthroid) 25 mcg PO 0600 [facility] Last Admin: 03/25/18 05:24 Dose: 25 mcg Oxycodone/Acetaminophen (Percocet 5/325 Mg Tab) 1 tab PO Q4H PRN PRN Reason: Pain, moderate (4-7) Stop: 03/25/18 16:04 Last Admin: 03/25/18 03:34 Dose: 1 tab Oxycodone/Acetaminophen (Percocet 5/325 Mg Tab) 1 tab PO Q4H PRN PRN Reason: Pain, moderate (4-7) Stop: 03/26/18 15:31 Pantoprazole Sodium (Protonix Ec Tab) 40 mg PO 0600 [facility] Last Admin: 03/25/18 05:24 Dose: 40 mg Potassium Chloride (K-Dur 20 Meq Er Tab) 20 meq PO BRK [facility] Last Admin: 03/25/18 08:18 Dose: 20 meq Sertraline HCl (Zoloft) 50 mg PO DAILY [facility] Last Admin: 03/24/18 09:58 Dose: 50 mg Tamsulosin HCl (Flomax) 0.4 mg PO DAILY [facility] Last Admin: 03/24/18 09:58 Dose: 0.4 mg Zolpidem Tartrate (Ambien) 10 mg PO HS PRN; Protocol PRN Reason: Insomnia - Labs Labs: 03/24/18 05:30 03/24/18 05:30 PT 13.2 SECONDS (9.4-12.5) H 03/21/18 10:00 INR 1.14 (0.93-1.08) H 03/21/18 10:00 APTT 30.5 Seconds (25.1-36.5) 03/21/18 10:00 - Neck Exam Additional comments: soft c-collar/dressing clean and intact - Respiratory Exam Respiratory Exam: Clear to Ausculation Bilateral, NORMAL BREATHING PATTERN - Cardiovascular Exam Cardiovascular Exam: REGULAR RHYTHM - GI/Abdominal Exam GI & Abdominal Exam: Soft, Normal Bowel Sounds - Extremities Exam Extremities Exam: Normal Inspection - Neurological Exam Neurological Exam: Alert, Awake - Skin Skin Exam: Dry, Warm Assessment and Plan (1) Fracture, cervical vertebra Status: Acute (2) DJD (degenerative joint disease) Status: Acute (3) Bradycardia Status: Acute - Assessment and Plan (Free Text) Plan: continue post-op care, await transfer to [facility]
--- NOTE | 2018-03-25 20:49 | CP.PCM.PN ---
Subjective - Date & Time of Evaluation Date of Evaluation: 03/25/18 Time of Evaluation: 20:48 - Subjective Subjective: Patient was seen at bedside at Son's request. Because he had swelling in left hand and ears were clogged. He had fusion of C1-C2 vertebrae.(03/23/18) Patient has no complaints. Medical record was reviewed. This 83 year old white male was admitted with neck pain, numbness and weakness of both upper extremities, cervical spine fracture from one month ago. Has PMH of CHF,HTN,BPH,hypothyroidism, DJD, overweight, allergy to PCN, diphtheria toxoid. Objective - Vital Signs/Intake and Output Vital Signs (last 24 hours): Temp Pulse Resp BP Pulse Ox 99.7 F H 61 18 123/63 94 L 03/25/18 17:22 03/25/18 18:00 03/25/18 17:22 03/25/18 17:22 03/25/18 17:22 Intake and Output: 03/25/18 03/26/18 18:59 06:59 Intake Total 1140 Output Total 650 Balance 490 - Medications Medications: Current Medications Acetaminophen (Tylenol 325mg Tab) 650 mg PO Q6H PRN PRN Reason: Fever >100.4 F Atenolol (Tenormin) 50 mg PO DAILY [facility] Last Admin: 03/25/18 09:44 Dose: 50 mg Furosemide (Lasix) 80 mg PO DAILY [facility] Last Admin: 03/25/18 09:45 Dose: 80 mg Hydromorphone HCl (Dilaudid) 0.5 mg IVP Q3 PRN PRN Reason: Pain, severe (8-10) Last Admin: 03/25/18 19:28 Dose: 0.5 mg Latanoprost (Xalatan Opht) 0 ml OU HS [facility] Last Admin: 03/24/18 22:27 Dose: 2.5 ml Levothyroxine Sodium (Synthroid) 25 mcg PO 0600 [facility] Last Admin: 03/25/18 05:24 Dose: 25 mcg Oxycodone/Acetaminophen (Percocet 5/325 Mg Tab) 1 tab PO Q4H PRN PRN Reason: Pain, moderate (4-7) Stop: 03/26/18 15:31 Pantoprazole Sodium (Protonix Ec Tab) 40 mg PO 0600 [facility] Last Admin: 03/25/18 05:24 Dose: 40 mg Potassium Chloride (K-Dur 20 Meq Er Tab) 20 meq PO BRK [facility] Last Admin: 03/25/18 08:18 Dose: 20 meq Sertraline HCl (Zoloft) 50 mg PO DAILY [facility] Last Admin: 03/25/18 09:45 Dose: 50 mg Tamsulosin HCl (Flomax) 0.4 mg PO DAILY [facility] Last Admin: 03/25/18 09:44 Dose: 0.4 mg Zolpidem Tartrate (Ambien) 10 mg PO HS PRN; Protocol PRN Reason: Insomnia - Labs Labs: 03/24/18 05:30 03/24/18 05:30 PT 13.2 SECONDS (9.4-12.5) H 03/21/18 10:00 INR 1.14 (0.93-1.08) H 03/21/18 10:00 APTT 30.5 Seconds (25.1-36.5) 03/21/18 10:00 Micro Results 03/23/18 17:00 Naris MRSA Culture (Admit) - Final MRSA NOT DETECTED Most Recent Lab Values WBC 14.2 10^3/ul (4.5-11.0) H D 03/24/18 05:30 RBC 4.07 10^6/uL (3.5-6.1) 03/24/18 05:30 Hgb 12.0 g/dL (14.0-18.0) L 03/24/18 05:30 Hct 37.2 % (42.0-52.0) L 03/24/18 05:30 MCV 91.4 fl (80.0-105.0) 03/24/18 05:30 MCH 29.5 pg (25.0-35.0) 03/24/18 05:30 MCHC 32.3 g/dl (31.0-37.0) 03/24/18 05:30 RDW 14.3 % (11.5-14.5) 03/24/18 05:30 Plt Count 168 10^3/uL (120.0-450.0) 03/24/18 05:30 MPV 11.1 fl (7.0-11.0) H 03/24/18 05:30 Gran % 69.7 % (50.0-68.0) H 03/22/18 06:10 Lymph % (Auto) 18.1 % (22.0-35.0) L 03/22/18 06:10 [place] % (Auto) 8.5 % (1.0-6.0) H 03/22/18 06:10 Eos % (Auto) 3.5 % (1.5-5.0) 03/22/18 06:10 Baso % (Auto) 0.2 % (0.0-3.0) 03/22/18 06:10 Gran # 5.72 (1.4-6.5) 03/22/18 06:10 Lymph # (Auto) 1.5 (1.2-3.4) 03/22/18 06:10 [place] # (Auto) 0.7 (0.1-0.6) H 03/22/18 06:10 Eos # (Auto) 0.3 (0.0-0.7) 03/22/18 06:10 Baso # (Auto) 0.02 K/mm3 (0.0-2.0) 03/22/18 06:10 PT 13.2 SECONDS (9.4-12.5) H 03/21/18 10:00 INR 1.14 (0.93-1.08) H 03/21/18 10:00 APTT 30.5 Seconds (25.1-36.5) 03/21/18 10:00 Sodium 138 mmol/L (132-148) 03/24/18 05:30 Potassium 4.5 mmol/L (3.6-5.0) 03/24/18 05:30 Chloride 99 mmol/L (98-107) 03/24/18 05:30 Carbon Dioxide 27 mmol/L (21-33) 03/24/18 05:30 Anion Gap 15 (10-20) 03/24/18 05:30 BUN 17 mg/dL (7-21) 03/24/18 05:30 Creatinine 0.9 mg/dl (0.8-1.5) 03/24/18 05:30 Est GFR ( Amer) > 60 03/24/18 05:30 Est GFR (Non-Af Amer) > 60 03/24/18 05:30 POC Glucose (mg/dL) 93 mg/dL (65-110) 03/22/18 06:24 Random Glucose 143 mg/dL (70-110) H 03/24/18 05:30 Hemoglobin A1c 6.0 % (4.2-6.5) 03/22/18 06:10 Calcium 8.9 mg/dL (8.4-10.5) 03/24/18 05:30 Phosphorus 2.8 mg/dL (2.5-4.5) 03/22/18 06:10 Magnesium 2.2 mg/dL (1.7-2.2) 03/22/18 06:10 Total Bilirubin 0.5 mg/dL (0.2-1.3) 03/22/18 06:10 AST 33 U/L (17-59) 03/22/18 06:10 ALT 51 U/L (7-56) 03/22/18 06:10 Alkaline Phosphatase 77 U/L (38-126) 03/22/18 06:10 NT-Pro-B Natriuret Pep 126 pg/mL (0-450) 03/21/18 10:00 Total Protein 6.6 g/dL (5.8-8.3) 03/22/18 06:10 Albumin 3.6 g/dL (3.0-4.8) 03/22/18 06:10 Globulin 3.0 gm/dL 03/22/18 06:10 Albumin/Globulin Ratio 1.2 (1.1-1.8) 03/22/18 06:10 Triglycerides 133 mg/dL (35-160) 03/22/18 06:10 Cholesterol 116 mg/dL (130-200) L 03/22/18 06:10 LDL Cholesterol Direct 74 mg/dL (0-129) 03/22/18 06:10 HDL Cholesterol 20 mg/dL (29-60) L 03/22/18 06:10 TSH 3rd Generation 2.11 mIU/mL (0.46-4.68) 03/22/18 06:10 Urine Color Yellow (YELLOW) 03/21/18 10:00 Urine Appearance Clear (CLEAR) 03/21/18 10:00 Urine pH 6.5 (4.7-8.0) 03/21/18 10:00 Ur Specific [place] 1.010 (1.005-1.035) 03/21/18 10:00 Urine Protein Negative mg/dL (<30 mg/dL) 03/21/18 10:00 Urine Glucose (UA) Negative mg/dL (NEGATIVE) 03/21/18 10:00 Urine Ketones Negative mg/dL (NEGATIVE) 03/21/18 10:00 Urine Blood Negative (NEGATIVE) 03/21/18 10:00 Urine Nitrate Negative (NEGATIVE) 03/21/18 10:00 Urine Bilirubin Negative (NEGATIVE) 03/21/18 10:00 Urine Urobilinogen 0.2 E.U./dL (<1 E.U./dL) 03/21/18 10:00 Ur Leukocyte Esterase Negative Nura/uL (NEGATIVE) 03/21/18 10:00 Blood Type A POSITIVE 03/21/18 10:30 Blood Type Confirm A POSITIVE 03/21/18 12:08 Antibody Screen Negative 03/21/18 10:30 BBK History Checked No verified bt 03/21/18 10:30 - Constitutional Appears: Well, No Acute Distress - Head Exam Head Exam: ATRAUMATIC, NORMAL INSPECTION, NORMOCEPHALIC - Eye Exam Eye Exam: Normal appearance - ENT Exam Additional comments: Left external ear canal has partial collection of cerumen. Right external ear canal is free of any cerumen. Tympanic membranes on both side are normal in appearance. Has both ears hearing aid. - Neck Exam Additional comments: Cervical collar on. - Respiratory Exam Respiratory Exam: NORMAL BREATHING PATTERN - Cardiovascular Exam Cardiovascular Exam: absent: JVD - GI/Abdominal Exam GI & Abdominal Exam: absent: Distended - Rectal Exam Rectal Exam: Deferred - Exam Additional comments: Deferred. - Extremities Exam Additional comments: Left hand dorsum is swollen, tender, erythematous. - Back Exam Back Exam: NORMAL INSPECTION - Neurological Exam Neurological Exam: Alert, Awake, Oriented x3 - Psychiatric Exam Psychiatric exam: Normal Affect, Normal Mood - Skin Skin Exam: Normal Color Assessment and Plan - Assessment and Plan (Free Text) Assessment: Left ear cerumen impaction. Left hand cellulitis. S/P Cervical fusion. CHF. HTN. BPH. Hypothyroidism. DJD. Overweight. Plan: Debrox as ordered. Keflex 500 mg PO Q6H. Elevation of left hand. Warm compress to left hand. Continue present management.
[2018-03-25] MEDS: Latanoprost 2.5 ml Opht Soln OU SCH (22:15)
[2018-03-26] MEDS: HYDROmorphone 0.5 mg/0.5 ml ISec IVP PRN (00:21)
[2018-03-26] MEDS: Oxycodone/Acetaminophen 5/325 mg Tab PO PRN ×2 (03:43→10:45)
[2018-03-26] MEDS: Pantoprazole 40 mg EC Tab PO SCH (05:01)
[2018-03-26] MEDS: Levothyroxine 25 MCG TAB PO SCH (05:01)
[2018-03-26 05:53] VITALS: O2SAT 95
--- NOTE | 2018-03-26 07:03 | CP.PCM.PN ---
Subjective - Date & Time of Evaluation Date of Evaluation: 03/26/18 Time of Evaluation: 06:25 - Subjective Subjective: Lying in bed, awake, alert with soft neck collar Reason for consultation and follow up: Cardiac evaluation and risk stratification for spine surgery, history of hypertension,rheumatoid arthritis, GERD, cervical spine myelopathy Seen and examined by me and Dr. Denton Objective - Vital Signs/Intake and Output Vital Signs (last 24 hours): Temp Pulse Resp BP Pulse Ox 98.5 F 59 L 19 111/63 95 03/26/18 05:53 03/26/18 05:53 03/26/18 05:53 03/26/18 05:53 03/26/18 05:53 Intake and Output: 03/26/18 03/26/18 06:59 18:59 Intake Total 180 Output Total 900 Balance -720 - Medications Medications: Current Medications Acetaminophen (Tylenol 325mg Tab) 650 mg PO Q6H PRN PRN Reason: Fever >100.4 F Atenolol (Tenormin) 50 mg PO DAILY [facility] Last Admin: 03/25/18 09:44 Dose: 50 mg Carbamide Peroxide (Debrox Ear Drops) 0 ml BID [facility] Stop: 03/27/18 10:01 Last Admin: 03/25/18 22:16 Dose: 5 drop Cephalexin Monohydrate (Keflex) 500 mg PO Q6 [facility] PRN Reason: Protocol Stop: 04/02/18 00:01 Last Admin: 03/26/18 05:01 Dose: 500 mg Furosemide (Lasix) 80 mg PO DAILY [facility] Last Admin: 03/25/18 09:45 Dose: 80 mg Hydromorphone HCl (Dilaudid) 0.5 mg IVP Q3 PRN PRN Reason: Pain, severe (8-10) Last Admin: 03/26/18 00:21 Dose: 0.5 mg Latanoprost (Xalatan Opht) 0 ml OU HS [facility] Last Admin: 03/25/18 22:15 Dose: 2.5 ml Levothyroxine Sodium (Synthroid) 25 mcg PO 0600 [facility] Last Admin: 03/26/18 05:01 Dose: 25 mcg Oxycodone/Acetaminophen (Percocet 5/325 Mg Tab) 1 tab PO Q4H PRN PRN Reason: Pain, moderate (4-7) Stop: 03/26/18 15:31 Last Admin: 03/26/18 03:43 Dose: 1 tab Pantoprazole Sodium (Protonix Ec Tab) 40 mg PO 0600 [facility] Last Admin: 03/26/18 05:01 Dose: 40 mg Potassium Chloride (K-Dur 20 Meq Er Tab) 20 meq PO BRK [facility] Last Admin: 03/25/18 08:18 Dose: 20 meq Sertraline HCl (Zoloft) 50 mg PO DAILY [facility] Last Admin: 03/25/18 09:45 Dose: 50 mg Tamsulosin HCl (Flomax) 0.4 mg PO DAILY [facility] Last Admin: 03/25/18 09:44 Dose: 0.4 mg Zolpidem Tartrate (Ambien) 10 mg PO HS PRN; Protocol PRN Reason: Insomnia - Labs Labs: 03/24/18 05:30 03/24/18 05:30 PT 13.2 SECONDS (9.4-12.5) H 03/21/18 10:00 INR 1.14 (0.93-1.08) H 03/21/18 10:00 APTT 30.5 Seconds (25.1-36.5) 03/21/18 10:00 - Constitutional Appears: No Acute Distress - Head Exam Head Exam: NORMOCEPHALIC - ENT Exam ENT Exam: Mucous Membranes Moist Additional comments: hard of hearing, hearing aide - Neck Exam Additional comments: with soft neck collar - Respiratory Exam Respiratory Exam: Clear to Ausculation Bilateral, NORMAL BREATHING PATTERN - Cardiovascular Exam Cardiovascular Exam: REGULAR RHYTHM, +S1, +S2 Additional comments: Telemetry- NSR with PVC's - GI/Abdominal Exam GI & Abdominal Exam: Soft, Normal Bowel Sounds - Extremities Exam Extremities Exam: Normal Capillary Refill Additional comments: left arm swelling - Neurological Exam Neurological Exam: Alert, Awake - Psychiatric Exam Psychiatric exam: Anxious - Skin Skin Exam: Intact, Normal Color, Warm Assessment and Plan - Assessment and Plan (Free Text) Assessment: A 83 year old electively admitted for spine surgery. Consult was called for cardiac evaluation and risk stratification for spine surgery, history of hypertension,hypothyroidism, rheumatoid arthritis, GERD, cervical spine myelopathy, Cervical spine surgery in 2011 at [place], recently had spine fracture (MRI and CT scan). Had Spine C2 fusion 03/23/18. Plan: Post spine surgery (C2 fusion) 03/23/18 Cardiac status stable Heart rate and blood pressure controlled Denies chest pain PRN medication for pain (neck) On Atenolol 100 mg daily,Lasix 80 mg daily, Synthroid 25 mcg daily Kdur 20 meq daily Continue current treatment Continue current medications Will follow up patient Plan and treatment discussed with
[2018-03-26] MEDS: Potassium Chloride 20 mEq ER Tab PO SCH (09:00)
--- NOTE | 2018-03-26 09:23 | OP ---
PROCEDURE DATE: 03/23/2018 PREOPERATIVE DIAGNOSIS: Fractured C2. POSTOPERATIVE DIAGNOSIS: Fractured C2. PROCEDURE: Occiput C2, posterior spinal fusion with instrumentation. SURGEONS: 1. Tomas Jeffery MD 2. Servando Scott MD TYPE OF ANESTHESIA: General endotracheal tube intubation. DESCRIPTION OF PROCEDURE: The patient was brought to the operating room. General anesthesia was achieved. Intravenous antibiotics were administered and spinal cord monitor leads were placed throughout the patient's body. Real-time monitoring was done by the power tool repair technician in the room. Remote monitoring was done by a physician as well. Sequential compression boots were placed to each of the patient's legs. After the antibiotics were administered, a Alaniz catheter was inserted. Garcia tongs were then placed on the patient's head and the patient was gently rolled into the supine position on the OR table. He was placed on rolls, supporting him from his coracoid process and to iliac crest bilaterally keeping his abdomen free from pressing interiorly. The tongs were secured to the Garcia headrest. X-rays were taken, which showed good position. However, it appeared as though, despite several maneuvers, we could not gain any room between the occiput and C1. Therefore, arrangements were made for the possibility of having to fuse up to the occiput. The patient's arms were well padded, secured at the side with shoulders tape down. The area over the posterior right ilium was marked off separately as well for a bone marrow aspiration. The patient's neck was shaved and then the back of the neck as well as the posterior right iliac region were prepped and draped. A trocar was placed at the posterior right ilium and 15 mL of bone marrow aspirate was obtained. This was used to soak the contents of an IC chamber to be used later as bone graft. Thrombinated Gelfoam powder was used to hemostasis the donor site. The level for the incision was noted under fluoroscopy. An incision was made sharply in the midline. This was taken down through subcutaneous tissue using sharp and blunt dissection. Hemostasis was achieved using electrocautery. Avascular plane was identified and the fascia cut and then the muscle stripped off C2, which could be felt through its bifid spinous process. Bipolar cautery was used for hemostasis. The muscles stripped back and we had good visualization of C2 lamina. We also cleared off the bottom of the occiput. We were able to identify the arch of C1, but again, there was no space of to pass a wire beneath the arch of C1 and come out between C1 and the occiput. We are afraid, there would be significant risk for spinal cord injury in doing so. Therefore, it was elected to just do the occipital C2 fusion. A 31 mm occipital plate was fixed to the skull using a 10 mm and 6 mm occipital screws, which were appropriately drilled and tapped prior to screw placement. A 3.5 mm jayleen was then cut and bent to fit the appropriate angle. A drill hole was made on each side at the base of the spinous process of C2 and a towel clamp was used to connect the 2 holes. Bill cables were then passed in each direction through the base of the spinous process. The jayleen connectors are placed on that and the jayleen secured to it on each side. The jayleen was then secured to the occipital plate using the screws. The cable on each side was then passed through the opening in the connector and one at a time, the cable was tightened down to a torque of 12 and then the . We had excellent tightness of the construct and x-ray shown to be in good position. It should be noted that prior to placement of the hardware, high speed drill was used to decorticate the posterior occipital area along with the arch of C1 and lamina C2. Once the hardware is placed, infuse along with the IC chamber bone was packed into all the decorticated surfaces. The wound was then closed in layers with 0 Vicryl for the muscle and the fascia. This was then copiously irrigated and vancomycin powder placed in the wound to help prevent postoperative infection. The subcutaneous tissue was closed with interrupted sutures of 0 and 2-0 Vicryl and the skin was approximated with daryl. Bacitracin ointment and sterile compressive dressing was applied. Bacitracin and Band-Aid dressing was applied to the iliac marrow donor site. A cervical collar was placed around the patient. The tongs were then disconnected from the headrest and the patient gently transferred onto his bed in supine position. The tongs were then removed. The patient was then awakened and extubated. He was taken to the recovery room in stable condition having tolerated the procedure well. He was actually moving his extremities at the time of his transfer and no permanent electrophysiologic abnormalities were noted at the completion of the case. ESTIMATED BLOOD LOSS: 100 mL. IV FLUIDS: He received 1800 mL of crystalloid during the procedure. It should be noted upon first placement of the Alaniz that he put out well over a 1000 mL of urine; however, for the surgery itself he put out approximately 100 mL. Tomas Jeffery MD
--- NOTE | 2018-03-26 09:38 | CP.PCM.PN ---
Subjective - Date & Time of Evaluation Date of Evaluation: 03/26/18 Time of Evaluation: 09:30 - Subjective Subjective: c/o pain L hand, some swellin, otherwise NAD Objective - Vital Signs/Intake and Output Vital Signs (last 24 hours): Temp Pulse Resp BP Pulse Ox 98.5 F 59 L 19 111/63 95 03/26/18 05:53 03/26/18 05:53 03/26/18 05:53 03/26/18 05:53 03/26/18 05:53 Intake and Output: 03/26/18 03/26/18 06:59 18:59 Intake Total 180 Output Total 900 Balance -720 - Medications Medications: Current Medications Acetaminophen (Tylenol 325mg Tab) 650 mg PO Q6H PRN PRN Reason: Fever >100.4 F Atenolol (Tenormin) 50 mg PO DAILY [facility] Last Admin: 03/25/18 09:44 Dose: 50 mg Carbamide Peroxide (Debrox Ear Drops) 0 ml BID [facility] Stop: 03/27/18 10:01 Last Admin: 03/25/18 22:16 Dose: 5 drop Cephalexin Monohydrate (Keflex) 500 mg PO Q6 GRISEL PRN Reason: Protocol Stop: 04/02/18 00:01 Last Admin: 03/26/18 05:01 Dose: 500 mg Furosemide (Lasix) 80 mg PO DAILY [facility] Last Admin: 03/25/18 09:45 Dose: 80 mg Hydromorphone HCl (Dilaudid) 0.5 mg IVP Q3 PRN PRN Reason: Pain, severe (8-10) Last Admin: 03/26/18 00:21 Dose: 0.5 mg Latanoprost (Xalatan Opht) 0 ml OU HS [facility] Last Admin: 03/25/18 22:15 Dose: 2.5 ml Levothyroxine Sodium (Synthroid) 25 mcg PO 0600 [facility] Last Admin: 03/26/18 05:01 Dose: 25 mcg Oxycodone/Acetaminophen (Percocet 5/325 Mg Tab) 1 tab PO Q4H PRN PRN Reason: Pain, moderate (4-7) Stop: 03/26/18 15:31 Last Admin: 03/26/18 03:43 Dose: 1 tab Pantoprazole Sodium (Protonix Ec Tab) 40 mg PO 0600 [facility] Last Admin: 03/26/18 05:01 Dose: 40 mg Potassium Chloride (K-Dur 20 Meq Er Tab) 20 meq PO BRK [facility] Last Admin: 03/25/18 08:18 Dose: 20 meq Sertraline HCl (Zoloft) 50 mg PO DAILY [facility] Last Admin: 03/25/18 09:45 Dose: 50 mg Tamsulosin HCl (Flomax) 0.4 mg PO DAILY [facility] Last Admin: 03/25/18 09:44 Dose: 0.4 mg Zolpidem Tartrate (Ambien) 10 mg PO HS PRN; Protocol PRN Reason: Insomnia - Labs Labs: 03/24/18 05:30 03/24/18 05:30 PT 13.2 SECONDS (9.4-12.5) H 03/21/18 10:00 INR 1.14 (0.93-1.08) H 03/21/18 10:00 APTT 30.5 Seconds (25.1-36.5) 03/21/18 10:00 - Neck Exam Additional comments: cervical collar clean/intact - Respiratory Exam Respiratory Exam: Clear to Ausculation Bilateral, NORMAL BREATHING PATTERN - Cardiovascular Exam Cardiovascular Exam: REGULAR RHYTHM - GI/Abdominal Exam GI & Abdominal Exam: Soft, Normal Bowel Sounds - Extremities Exam Additional comments: mild swelling and warmth L hand - Neurological Exam Neurological Exam: Alert, Awake - Skin Skin Exam: Dry, Warm Assessment and Plan (1) Fracture, cervical vertebra Status: Acute (2) DJD (degenerative joint disease) Status: Acute (3) Bradycardia Status: Acute - Assessment and Plan (Free Text) Plan: xray L hand pending, on Keflex, will add Mobkiara 15qd, SW for discharge planning
--- NOTE | 2018-03-26 10:08 | RAD ---
PROCEDURE: Left Hand Radiographs. HISTORY: r/o osteomyelitis COMPARISON: None. FINDINGS: BONES: Normal. No fracture. JOINTS: Degenerative changes are seen in the MCP DIP and PIP joints. SOFT TISSUES: Normal. OTHER FINDINGS: None. IMPRESSION: No evidence of osteomyelitis. Osteoarthritis
[2018-03-26] MEDS ORDERED: Bacitracin Ointment 30 GM TUBE TOP SCH (12:30)
[2018-03-26 17:03] VITALS: BP 134/95; PULSE 107; RESP 20; TEMP 97.6
== END 2018-03-26 18:31 | DRG 472 ==
LOC: ED 08:25 → ERH 11:29 → 5RSO 12:21 → CCU 03-23 15:18 → 2RSO 03-24 17:59
PROVIDERS: ADMIT Internal Medicine; ATTEND Internal Medicine
PROC: 07DR3ZZ Extraction of Iliac Bone Marrow, Percutaneous Approach (ICD-10-PCS; 2018-03-23)
PROC: 0RG00AJ Fusion of Occipital-cervical Joint with Interbody Fusion Device, Posterior Approach, Anterior Column, Open Approach (ICD-10-PCS; principal; 2018-03-23 07:30)
DX: S12.100A Unspecified displaced fracture of second cervical vertebra, initial encounter for closed fracture (principal); L03.114 Cellulitis of left upper limb; G56.03 Carpal tunnel syndrome, bilateral upper limbs; M06.9 Rheumatoid arthritis, unspecified; K21.9 Gastro-esophageal reflux disease without esophagitis; E03.9 Hypothyroidism, unspecified; I50.9 Heart failure, unspecified; I11.0 Hypertensive heart disease with heart failure; N40.1 Benign prostatic hyperplasia with lower urinary tract symptoms; R33.8 Other retention of urine; R00.1 Bradycardia, unspecified; J44.9 Chronic obstructive pulmonary disease, unspecified; I87.2 Venous insufficiency (chronic) (peripheral); H91.93 Unspecified hearing loss, bilateral; H61.22 Impacted cerumen, left ear; W19.XXXA Unspecified fall, initial encounter; Y92.9 Unspecified place or not applicable; Z88.0 Allergy status to penicillin

== ENCOUNTER 2018-07-01 05:45 | Inpatient (IN) | payer MEDICARE, OTHER ==
[2018-07-01 06:03] VITALS: BMI 26.6
--- NOTE | 2018-07-01 06:10 | ED PDOC ---
Arrival/HPI - General Time Seen by Provider: 07/01/18 05:57 Historian: Patient - History of Present Illness Narrative History of Present Illness (Text): 07/01/18 06:05 83 year old male, whose past medical history includes degenerative joint disease , hypothyroidism, CHF, hypertension, BPH, and carpal tunnel of bilateral wrist/ arthritis, presents to the emergency department complaining of inability to urinate since last evening. Patient state he has a history of ?urethral strictures in the past and is scheduled for a cystoscopy in July. Patient denies any fever, chills, chest pain, shortness of breath, nausea, vomiting, diarrhea, other urinary symptoms, back pain, neck pain, headache, dizziness, or any other complaints. PMD: Dr. Rosaura Cardenas Time/Duration: Other (yesterday evening) Symptom Onset: Gradual Symptom Course: Unchanged Activities at Onset: Light Context: Home Past Medical History - Provider Review Nursing Documentation Reviewed: Yes - Infectious Disease Hx of Infectious Diseases: None - Tetanus Immunization Tetanus Immunization: Unknown - Cardiac Hx Congestive Heart Failure: Yes - Pulmonary Hx Chronic Obstructive Pulmonary Disease (COPD): Yes - Neurological Hx Neurological Disorder: Yes (CERVICAL SPINE FX,PARESTHESIAS,MENIERE'S DSE) - HEENT Hx HEENT Disorder: Yes (Wears eye glassess) Hx Deafness: Yes (JANET.) Other/Comment: Janet. HEARING AIDS, menieres disease, dry eyes b/l - Renal Hx Renal Disorder: No - Endocrine/Metabolic Hx Hypothyroidism: Yes - Hematological/Oncological Hx Blood Transfusions: No - Integumentary Hx Dermatological Disorder: Yes Other/Comment: redness left foot, callous bottom of right foot, rredness and swelling toes 1 3 4 of left foot, ble discolored, dry skin right heel. BILATERAL BUTTOCKS WITH STAGE 2 PRESSURE ULCER TO LOWER BUTTOCKS. RIGHT CHEST WALL DRY SKIN AREA,FLAKY. BILATERAL LE LIGHT BROWN SKIN DISCOLORATION WITH FLAKY SKIN,THICKENED NAILS WITH R 2ND TOE WITH A LARGE THICKENED GROWTH. - Musculoskeletal/Rheumatological Hx Musculoskeletal Disorders: Yes (CARPAL TUNNEL,BURSITIS RIGHT HAND H/O, CERVICAL RADICULOPATHY,L KNEE SX.) - Gastrointestinal Hx Gastrointestinal Disorders: (hx diverticulitis) - Genitourinary/Gynecological Hx Genitourinary Disorders: Yes Hx Prostate Problems: Yes (bph) - Psychiatric Hx Emotional Abuse: No Hx Physical Abuse: No Hx Substance Use: No - Surgical History Hx Joint Replacement: Yes (left knee/ right ankle fusion/Cervical fusion.) Other/Comment: colostomy and reversal - Suicidal Assessment Feels Threatened In Home Enviroment: No Family/Social History - Physician Review Nursing Documentation Reviewed: Yes Family/Social History: No Known Family HX Smoking Status: Former Smoker Hx Alcohol Use: No Hx Substance Use: No Hx Substance Use Treatment: No Allergies/Home Meds Allergies/Adverse Reactions: Allergies diphtheria toxoid,adsorbed Allergy (Severe, Verified 07/01/18 06:03) RASH Penicillins Adverse Reaction (Unknown, Verified 07/01/18 06:03) AVOIDS IT Home Medications: Home Meds Medication Instructions Recorded Confirmed Aspirin [Ecotrin] 81 mg PO DAILY 03/21/18 06/22/18 Atenolol [Tenormin] 100 mg PO DAILY 03/21/18 06/22/18 Cilostazol [Pletal] 100 mg PO DAILY 03/21/18 06/22/18 Esomeprazole Magnesium [Nexium] 40 mg PO DAILY 03/21/18 06/22/18 Furosemide [Lasix] 80 mg PO DAILY 03/21/18 06/22/18 Latanoprost [Xalatan] 2 drop BOTHEYES DAILY 03/21/18 06/22/18 Levothyroxine Sodium [Levoxyl] 50 mcg PO DAILY 03/21/18 06/22/18 Meclizine [Meclizine*] 25 mg PO DAILY 03/21/18 06/22/18 Oxybutynin [Ditropan Tab] 15 mg pe PO DAILY 03/21/18 06/22/18 Sertraline [Zoloft] 50 mg PO DAILY 03/21/18 06/22/18 Tamsulosin [Flomax] 0.4 mg PO DAILY 03/21/18 06/22/18 Meloxicam [Mobic] 15 mg PO DAILY 06/22/18 06/22/18 [place]-3 Fatty Acids/Fish Oil [Fish 1,000 mg PO DAILY 06/22/18 06/22/18 Oil 1,000 mg Capsule] Potassium Chloride [K-Dur 20] 20 meq PO DAILY 06/22/18 06/22/18 Review of Systems - Physician Review All systems were reviewed & negative as marked: Yes - Review of Systems Constitutional: absent: Fevers, Other (Chills) Respiratory: absent: SOB Cardiovascular: absent: Chest Pain Gastrointestinal: absent: Diarrhea, Nausea, Vomiting Genitourinary Male: Urinary Output Changes (Urinary retention). absent: Dysuria , Frequency, Hematuria Musculoskeletal: absent: Back Pain, Neck Pain Neurological: absent: Headache, Dizziness Physical Exam Vital Signs Reviewed: Yes Vital Signs Temp Pulse Resp BP Pulse Ox 07/01/18 06:29 98.2 F 50 L 18 139/64 98 Appearance: Positive for: Well-Appearing, Non-Toxic, Comfortable Pain Distress: None Mental Status: Positive for: Alert and Oriented X 3 - Systems Exam Head: Present: Atraumatic, Normocephalic Pupils: Present: PERRL Extroacular Muscles: Present: EOMI Conjunctiva: Present: Normal Mouth: Present: Moist Mucous Membranes Neck: Present: Normal Range of Motion Respiratory/Chest: Present: Clear to Auscultation, Good Air Exchange. No: Respiratory Distress, Accessory Muscle Use Cardiovascular: Present: Regular Rate and Rhythm, Normal S1, S2. No: Murmurs Abdomen: Present: Distention (Mild Suprapubic distention), Normal Bowel Sounds. No: Tenderness, Peritoneal Signs Back: Present: Normal Inspection Upper Extremity: Present: Normal Inspection. No: Cyanosis, Edema Lower Extremity: Present: Normal Inspection. No: Edema Neurological: Present: GCS=15, CN II-XII Intact, Speech Normal Skin: Present: Warm, Dry, Normal Color. No: Rashes Psychiatric: Present: Alert, Oriented x 3, Normal Insight, Normal Concentration Medical Decision Making ED Course and Treatment: 07/01/18 06:07 Impression: 83 year old male presents complaining of urinary retention since yesterday evening. Plan: -- Urinary Catheter insertion -- Reassess and disposition Prior Visits: Notes and results from previous visits were reviewed. Progress Notes: 07/01/18 06:20 Patient had urinary wing catheter placed with passage ~ 500 cc urine with relief 07/01/18 07:00 Case endorsed to /pending labs/reassess/final disposition - RAD Interpretation Radiology Orders: 07/01/18 06:42 CHEST PORTABLE [RAD] Stat - Scribe Statement The provider has reviewed the documentation as recorded by the Charly Woodward Provider Scribe Attestation: All medical record entries made by the Scribe were at my direction and personally dictated by me. I have reviewed the chart and agree that the record accurately reflects my personal performance of the history, physical exam, medical decision making, and the department course for this patient. I have also personally directed, reviewed, and agree with the discharge instructions and disposition. Disposition/Present on Arrival - Present on Arrival Any Indicators Present on Arrival: No History of DVT/PE: No History of Uncontrolled Diabetes: No Urinary Catheter: No History Surgical Site Infection Following: None - Disposition Have Diagnosis and Disposition been Completed?: No Diagnosis: Urinary retention Disposition Time: 07:00 Patient Problems: Current Active Problems Problem Status Onset Urinary retention Acute Condition: STABLE
--- NOTE | 2018-07-01 07:10 | ED PDOC ---
Physical Exam Vital Signs Reviewed: Yes Vital Signs Temp Pulse Resp BP Pulse Ox 07/01/18 11:06 63 17 186/83 H 92 L 07/01/18 08:25 98.0 F 60 18 121/88 98 07/01/18 06:29 98.2 F 50 L 18 139/64 98 Temperature: Afebrile Blood Pressure: Normal Pulse: Regular Respiratory Rate: Normal Appearance: Positive for: Well-Appearing, Non-Toxic, Comfortable Pain Distress: None Mental Status: Positive for: Alert and Oriented X 3 Medical Decision Making ED Course and Treatment: 07/01/18 07:10 Patient endorsed to me by Dr. Martinez. Currently pending labs, reassessment and final disposition. 07/01/18 09:19 Patient's lab results show patient to have a urinary tract infection. Dr. Reyes has been paged. 07/01/18 10:[address] Reyes and agrees to have patient admitted under her service, and requests consults with Dr. Macisa, Dr. Cavazos, and Dr. Pyle. 10:[address] Macias, who will put in orders for antibiotics for patient. 07/01/18 11:[address] pyle, cardiology, he has been made aware of the patient's status in the ED (including concern for atrial fibrillation) and will see patient in consultation. no acute intervention recommendations at this time. If anticoagulation is initiated I will defer to specialist consultation. 07/01/18 11:34 - Lab Interpretations Lab Results: 07/01/18 07:14 07/01/18 07:14 Lab Results 07/01/18 07:14: TSH 3rd Generation 6.45 H 07/01/18 07:14: PT 12.2, INR 1.06, APTT 27.5 07/01/18 07:14: WBC 7.3, RBC 4.38, Hgb 12.7 L, Hct 39.5 L, MCV 90.2, MCH 29.0, MCHC 32.2, RDW 15.3 H, Plt Count 202, MPV 10.7 07/01/18 07:14: Sodium 139, Potassium 3.8, Chloride 99, Carbon Dioxide 30, Anion Gap 14, BUN 21, Creatinine 0.9, Est GFR ( Amer) > 60, Est GFR (Non- Af Amer) > 60, Random Glucose 98, Calcium 9.6, Total Bilirubin 0.5, AST 28, ALT 26, Alkaline Phosphatase 74, Lactate Dehydrogenase 415, Total Creatine Kinase 28 L, Troponin I < 0.01, NT-Pro-B Natriuret Pep 160, Total Protein 7.1, Albumin 3.9, Globulin 3.3, Albumin/Globulin Ratio 1.2 07/01/18 06:28: Urine Color Yellow, Urine Appearance Clear, Urine pH 6.0, Ur Specific [place] 1.015, Urine Protein Negative, Urine Glucose (UA) Negative, Urine Ketones Negative, Urine Blood Negative, Urine Nitrate Positive H, Urine Bilirubin Negative, Urine Urobilinogen 0.2, Ur Leukocyte Esterase Moderate H, Urine RBC 0 - 2, Urine WBC 5 - 10, Ur Epithelial Cells 0 - 2, Urine Bacteria Mod - RAD Interpretation Radiology Orders: 07/01/18 06:42 CHEST PORTABLE [RAD] Stat - EKG Interpretation EKG Interpretation (Text): 07/01/18 09:46 0654: atrial fibrillation at 61 bpm, nml qrs, nml a xis, frequent supraventricular beats Interpreted by ED Physician: Yes - Medication Orders Current Medication Orders: Meropenem (Merrem Iv 1 Gm Premix) 50 mls @ 100 mls/hr IVPB Q8 GRISEL PRN Reason: Protocol Stop: 07/10/18 10:37 Last Admin: 07/01/18 10:56 Dose: 100 mls/hr eMAR Start Stop Document 07/01/18 10:56 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 I have reviewed the chart and agree that the record accurately reflects my personal performance of the history, physical exam, medical decision making, and the department course for this patient. I have also personally directed, reviewed, and agree with the discharge instructions and disposition. Disposition/Present on Arrival - Present on Arrival Any Indicators Present on Arrival: No History of DVT/PE: No History of Uncontrolled Diabetes: No Urinary Catheter: No History of Decub. Ulcer: No History Surgical Site Infection Following: None - Disposition Have Diagnosis and Disposition been Completed?: Yes Diagnosis: Urinary retention Disposition: HOSPITALIZED Disposition Time: 16:59 Patient Problems: Current Active Problems Problem Status Onset Urinary retention Acute Condition: STABLE
[2018-07-01 08:03] LABS: HEMOGLOBIN 12.7 g/dL (14.0-18.0); MEAN CELL VOLUME 90.2 fl (80.0-105.0); MEAN CORPUSCULAR HGB CONC 32.2 g/dl (31.0-37.0); MEAN PLATELET VOLUME 10.7 fl (7.0-11.0); RBC 4.38 10^6/uL (3.5-6.1); RED CELL DISTRIBUTION WIDTH 15.3 % (11.5-14.5); WHITE BLOOD COUNT 7.3 10^3/ul (4.5-11.0)
[2018-07-01 08:07] LABS: INR 1.06; PARTIAL THROMBOPLASTIN TIME 27.5 Seconds (25.1-36.5); PROTHROMBIN TIME 12.2 SECONDS (9.4-12.5)
[2018-07-01 08:13] LABS: ALB/GLOB RATIO 1.2 (1.1-1.8); ALBUMIN 3.9 g/dL (3.0-4.8); ALT/SGPT 26 U/L (7-56); AST/SGOT 28 U/L (17-59); BLOOD UREA NITROGEN 21 mg/dL (7-21); CALCIUM 9.6 mg/dL (8.4-10.5); GFR NON-AFRICAN AMERICAN > 60
[2018-07-01 08:24] LABS: B-TYPE NATRIURETIC PEPTIDE 160 pg/mL (0-450); TROPONIN I < 0.01 ng/mL
[2018-07-01 08:39] LABS: URINE BILIRUBIN NEGATIVE (NEGATIVE); URINE BLOOD NEGATIVE (NEGATIVE); URINE GLUCOSE (UA) NEGATIVE (NEGATIVE); URINE LEUKOCYTE ESTERASE MODERATE Leu/uL (NEGATIVE); URINE PROTEIN NEGATIVE mg/dL (<30 mg/dL); URINE UROBILINOGEN 0.2 E.U./dL (<1 E.U./dL)
[2018-07-01 08:44] LABS: URINE APPEARANCE CLEAR (CLEAR); URINE COLOR YELLOW (YELLOW)
[2018-07-01 09:16] LABS: URINE RBC 0 - 2 /hpf (0-2)
[2018-07-01 09:17] LABS: URINE BACTERIA MOD (NEG); URINE EPITHELIAL CELLS 0 - 2 /hpf (0-5)
[2018-07-01] MEDS: Meropenem IV 1 gm in NS 50 ML IVPB SCH ×3 (10:56→21:19)
--- NOTE | 2018-07-01 12:35 | RAD ---
Date of service: 07/01/2018 HISTORY: medical clearance COMPARISON: 03/21/2018 FINDINGS: LUNGS: No active pulmonary disease. PLEURA: No significant pleural effusion identified, no pneumothorax apparent. CARDIOVASCULAR: Normal. OSSEOUS STRUCTURES: No significant abnormalities. VISUALIZED UPPER ABDOMEN: Normal. OTHER FINDINGS: None. IMPRESSION: No active disease.
--- NOTE | 2018-07-01 14:00 | CARD ---
APPROVED REPORT Date of service: 07/01/2018 EKG Measurement Heart [id number] <Conclusion> Sinus Rhythm with APCs Minimal voltage criteria for LVH, may be normal variant Inferior infarct, age undetermined Abnormal ECG
[2018-07-01] MEDS: Levothyroxine 25 MCG TAB PO SCH (14:38)
[2018-07-01] MEDS ORDERED: POLYETHYLENE GLYCOL 3350 17 GM/Dose PACKET PO ONE (18:02)
--- NOTE | 2018-07-01 18:23 | CP.PCM.CON ---
History of Present Illness - History of Present Illness History of Present Illness: CC Retention Past Patient History - Infectious Disease Hx of Infectious Diseases: None - Tetanus Immunizations Tetanus Immunization: Unknown - Past Social History Smoking Status: Former Smoker - CARDIAC Hx Congestive Heart Failure: Yes - PULMONARY Hx Chronic Obstructive Pulmonary Disease (COPD): Yes - NEUROLOGICAL Hx Neurological Disorder: Yes (CERVICAL SPINE FX,PARESTHESIAS,MENIERE'S DSE) - HEENT Hx HEENT Problems: Yes (Wears eye glassess) Hx Deafness: Yes (JANET.) Other/Comment: Janet. HEARING AIDS, menieres disease, dry eyes b/l - RENAL Hx Chronic Kidney Disease: No - ENDOCRINE/METABOLIC Hx Hypothyroidism: Yes - HEMATOLOGICAL/ONCOLOGICAL Hx Blood Disorders: No - INTEGUMENTARY Hx Dermatological Problems: Yes Other/Comment: redness left foot, callous bottom of right foot, rredness and swelling toes 1 3 4 of left foot, ble discolored, dry skin right heel. BILATERAL BUTTOCKS WITH STAGE 2 PRESSURE ULCER TO LOWER BUTTOCKS. RIGHT CHEST WALL DRY SKIN AREA,FLAKY. BILATERAL LE LIGHT BROWN SKIN DISCOLORATION WITH FLAKY SKIN,THICKENED NAILS WITH R 2ND TOE WITH A LARGE THICKENED GROWTH. - MUSCULOSKELETAL/RHEUMATOLOGICAL Hx Falls: Yes - GASTROINTESTINAL Hx Gastrointestinal Disorders: (hx diverticulitis) - GENITOURINARY/GYNECOLOGICAL Hx Genitourinary Disorders: Yes Hx Prostate Problems: Yes (bph) - PSYCHIATRIC Hx Emotional Abuse: No Hx Physical Abuse: No - SURGICAL HISTORY Hx Joint Replacement: Yes (left knee/ right ankle fusion/Cervical fusion.) Other/Comment: colostomy and reversal Meds Allergies/Adverse Reactions: Allergies Allergy/AdvReac Type Severity Reaction Status Date / Time diphtheria toxoid,adsorbed Allergy Severe RASH Verified 07/01/18 06:03 Penicillins AdvReac Unknown AVOIDS IT Verified 07/01/18 06:03 - Medications Medications: Current Medications Meropenem (Merrem Iv 1 Gm Premix) 50 mls @ 100 mls/hr IVPB Q8 GRISEL PRN Reason: Protocol Stop: 07/10/18 10:37 Last Admin: 07/01/18 13:42 Dose: 100 mls/hr Levothyroxine Sodium (Synthroid) 25 mcg PO 0600 GRISEL Last Admin: 07/01/18 14:38 Dose: 25 mcg Results - Vital Signs Recent Vital Signs: Last Vital Signs Temp 98.3 F 07/01/18 18:00 Pulse 55 L 07/01/18 18:00 Resp 20 07/01/18 18:00 BP 101/66 07/01/18 18:00 Pulse Ox 95 07/01/18 18:00 - Labs Result Diagrams: 07/01/18 07:14 07/01/18 07:14 Labs: Laboratory Results - last 24 hr 07/01/18 11:00 Prostate Specific Ag 1.4 Assessment & Plan - Assessment and Plan (Free Text) Assessment: IMP: URINARY RETENTION HX OF STRICTURE BPH HYPERTENSION HX OF CERVICAL MYELOPATHY/LAMINECTOMY HX OF COLON SURGERY FOR DIVERTICULITIS FULL NOTE TBD YS - Date & Time Date: 07/01/18 Time: 17:20
--- NOTE | 2018-07-02 01:39 | CON ---
DATE: 07/01/2018 LOCATION: The patient is seen in room 260, bed #2 CHIEF COMPLAINT: Urinary retention, x1 day duration. 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 He was scheduled for cystoscopy with Dr. Paredes; however, now the patient's condition deteriorated and came to the emergency room. REVIEW OF SYSTEMS: A 12-point review systems performed. No fevers, no chills. No nausea, no vomiting. No chest pain. No headaches or blurred vision. The patient's symptoms in the emergency room where inability to urinate for past 24 hours. He has a history of ureteral strictures in the past and was scheduled for cystoscopy in July by Dr. Paredes; however, he is not able to pass his urine in the last 24 hours and now admitted with abdominal discomfort, pelvic discomfort. PAST MEDICAL HISTORY: Significant for room for arthritis, BPH, degenerative joint disease, GERD, second toe osteomyelitis with group B strep and Pseudomonas, hypothyroidism, anxiety, obesity, congestive heart failure. PAST SURGICAL HISTORY: Significant for history of colostomy and reversal of the colostomy, history of left knee surgeries, history of cervical fusion and right ankle fusion and laminectomy. ALLERGIES: THE PATIENT IS ALLERGIC TO PENICILLIN AND DIPHTHERIA TOXOID. MEDICATIONS: At home include colchicine, allopurinol, levothyroxine, Zoloft and Lasix. PHYSICAL EXAMINATION: GENERAL: The patient is in bed, in no acute distress. VITAL SIGNS: Temperature of 98, heart rate of 63, blood pressure is 186/83, respiratory rate of 18. HEENT: Unremarkable. NECK: Supple. LUNGS: Have decreased breath sounds. HEART: Normal S1, S2. ABDOMEN: Soft, nontender and no rebound or guarding. No masses. LABORATORY EXAMINATION: Reveals a white count of 7.3, hemoglobin of 12.7, platelets of 302. Coagulation is noted and chemistries reveals a BUN of 21, creatinine of 0.9. PSA is 1.4 and urinalysis reveals 5-10 wbcs, moderate bacteria, moderate leukocyte esterase, positive nitrates. Microbiology is pending. 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 We will follow with you. Topher Macias MD
--- NOTE | 2018-07-02 04:58 | HP ---
Patient was seen and examined on 07/01/2018. H and P is for 07/01/2018. CHIEF COMPLAINT: Cannot urinate. HISTORY OF PRESENT ILLNESS: Mr. Richard Gonzalez is an 83-year-old male who has a past medical history of degenerative joint disease, hypothyroidism, congestive heart failure, hypertension, BPH, carpal tunnel syndrome, bilateral wrist arthritis, came to the Emergency Department complaining of unable to urinate since last evening. Patient states that he has a history of ureteral stricture in the past and is scheduled for cystoscopy in July. Now, patient cannot urinate, that is why he came to the emergency room. Denies fever or chills. No nausea, vomiting, or diarrhea. No back pain. No neck pain. This patient is Dr. Paul Cardenas's patient, I am covering him. PAST MEDICAL HISTORY: As above. COPD; cervical spine fracture; paresthesias; Meniere disease; deafness bilaterally, has hearing aid; hypothyroidism; decubitus ulcer bilaterally buttocks with stage II pressure ulceration; carpal tunnel syndrome bilaterally; cervical radiculopathy; BPH; colostomy and reversal. FAMILY HISTORY: Father and mother, noncontributory. HABITS: Former smoker. Now, no smoking. No drug. No ethanol. ALLERGIES: ALLERGIC WITH DIPHTHERIA TOXOID AND PENICILLIN. HOME MEDICATIONS: Ecotrin, Tenormin, Pletal, Lasix, Levoxyl, meclizine, Zoloft, Flomax, Mobic, potassium. REVIEW OF SYSTEMS: Patient was seen and examined on the bedside in his room, looking comfortable. No nausea, vomiting, or diarrhea. No hematuria or hematochezia. No swelling of the legs. No chest pain. No palpitation. No headache. No dizziness. Awake and alert. No diarrhea, no nausea, or vomiting. History of urinary retention, but no dysuria or frequency. No back pain. PHYSICAL EXAMINATION: VITAL SIGNS: Temperature 98.2, pulse 50, respiratory rate 18, blood pressure 113/54, pulse oximetry 98%. HEENT: Head: Normocephalic, atraumatic. Eyes: PERRLA. Extraocular muscles intact. Conjunctivae clear. Nose patent. Mucous membranes moist. NECK: Supple. No carotid bruit, JVD, or thyromegaly. CHEST: Bilaterally symmetrical. HEART: S1 and S2 positive. LUNGS: Clear to auscultation. ABDOMEN: Soft. Bowel sounds present. No organomegaly. EXTREMITIES: No edema. No cyanosis. NEUROLOGIC: Patient is awake and alert. Follows simple command. LABORATORY DATA: White blood cells 7.3, hemoglobin 12.7, hematocrit 39.5, platelets 202. Sodium 139, potassium 3.8, BUN 21, creatinine 0.9. AST 28, ALT 26. Total creatine kinase 28. TSH 6.45. ASSESSMENT AND PLAN: Mr. Richard Gonzalez is an 83-year-old male with anemia; hypothyroidism; urinary tract infection, nitrites and leukocytes are positive, seen by Dr. Sam Cavazos; history of chronic obstructive pulmonary disease; cervical spine fracture; paresthesias; Meniere disease; bilateral deafness, has hearing aid; bilateral buttocks with stage II pressure ulcers; history of diverticulitis; benign prostatic hypertrophy; left knee/right ankle fusion/cervical fusion; colostomy and reversal. We admitted the patient. Called Urology consult, Dr. Sam Cavazos. Patient has a history of ureteral stricture. He supposed to go for cystoscopy, but came because of urinary retention. Seen by Dr. Denton also. Continue present treatment. Gastrointestinal and deep venous thrombosis prophylaxes. Repeat labs. We will follow up. Malka Reyes MD
[2018-07-02] MEDS: Pantoprazole 40 mg EC Tab PO SCH (06:04)
[2018-07-02] MEDS: Levothyroxine 25 MCG TAB PO SCH (06:04)
[2018-07-02] MEDS: Meropenem IV 1 gm in NS 50 ML IVPB SCH ×3 (06:04→21:09)
[2018-07-02 06:59] LABS: FREE T4 0.91 ng/dL (0.78-2.19)
[2018-07-02 07:13] LABS: T3 1.35 ng/mL (0.97-1.69)
[2018-07-02] MEDS ORDERED: Levothyroxine 25 MCG TAB PO SCH (10:00)
[2018-07-02] MEDS: Omega-3-Acid Ethyl Esters 1 GM Cap PO SCH (10:19)
[2018-07-02] MEDS: Potassium Chloride 20 mEq ER Tab PO SCH (10:19)
[2018-07-02] MEDS: Cilostazol 100 mg Tab UD PO SCH (10:19)
--- NOTE | 2018-07-02 12:35 | CP.PCM.PN ---
Subjective - Date & Time of Evaluation Date of Evaluation: 07/02/18 Time of Evaluation: 10:20 - Subjective Subjective: Comfortable in bed, no abdominal pain, no fevers. Objective - Vital Signs/Intake and Output Vital Signs (last 24 hours): Temp Pulse Resp BP Pulse Ox 98.0 F 57 L 19 119/60 92 L 07/02/18 06:00 07/02/18 10:20 07/02/18 06:00 07/02/18 10:20 07/02/18 06:00 Intake and Output: 07/02/18 07/02/18 06:59 18:59 Intake Total 420 Output Total 1400 Balance -980 - Medications Medications: Current Medications Allopurinol (Zyloprim) 100 mg PO DAILY [facility] Last Admin: 07/02/18 10:19 Dose: 100 mg Aspirin (Ecotrin) 81 mg PO DAILY [facility] Last Admin: 07/02/18 10:19 Dose: 81 mg Atenolol (Tenormin) 50 mg PO DAILY [facility] Last Admin: 07/02/18 10:20 Dose: Not Given Cilostazol (Pletal) 100 mg PO DAILY [facility] Last Admin: 07/02/18 10:19 Dose: 100 mg Colchicine (Colocrys) 0.6 mg PO DAILY [facility] Last Admin: 07/02/18 10:19 Dose: 0.6 mg Furosemide (Lasix) 80 mg PO DAILY [facility] Last Admin: 07/02/18 10:19 Dose: 80 mg Meropenem (Merrem Iv 1 Gm Premix) 50 mls @ 100 mls/hr IVPB Q8 [facility] PRN Reason: Protocol Stop: 07/10/18 10:37 Last Admin: 07/02/18 06:04 Dose: 100 mls/hr Latanoprost (Xalatan Opht) 0 ml OD HS [facility] Levothyroxine Sodium (Synthroid) 25 mcg PO 0600 [facility] Last Admin: 07/02/18 06:04 Dose: 25 mcg Levothyroxine Sodium (Synthroid) 250 mcg PO DAILY [facility] Meclizine HCl (Antivert) 25 mg PO DAILY [facility] Last Admin: 07/02/18 11:07 Dose: 25 mg Kavdz-4-Pnve Ethyl Esters (Lovaza) 1 gm PO DAILY [facility] Last Admin: 07/02/18 10:19 Dose: 1 gm Pantoprazole Sodium (Protonix Ec Tab) 40 mg PO 0600 [facility] Last Admin: 07/02/18 06:04 Dose: 40 mg Potassium Chloride (K-Dur 20 Meq Er Tab) 20 meq PO DAILY [facility] Last Admin: 07/02/18 10:19 Dose: 20 meq Sertraline HCl (Zoloft) 50 mg PO DAILY [facility] Last Admin: 07/02/18 10:19 Dose: 50 mg Tamsulosin HCl (Flomax) 0.4 mg PO DAILY [facility] Last Admin: 07/02/18 10:19 Dose: 0.4 mg - Labs Labs: PT 12.2 SECONDS (9.4-12.5) 07/01/18 07:14 INR 1.06 07/01/18 07:14 APTT 27.5 Seconds (25.1-36.5) 07/01/18 07:14 - Constitutional Appears: Chronically Ill - Head Exam Head Exam: NORMAL INSPECTION - Respiratory Exam Respiratory Exam: Decreased Breath Sounds - Cardiovascular Exam Cardiovascular Exam: +S1, +S2 - GI/Abdominal Exam GI & Abdominal Exam: Soft. 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
--- NOTE | 2018-07-02 14:33 | PN ---
DATE: 07/02/2018 SUBJECTIVE: The patient is well known to me from multiple prior office visits. He has a long history of BPH as well as urethral stricture. He has missed recent followups in the office. However, he is scheduled to come in next week. The patient presented to the emergency room complaining of difficulty voiding. A Alaniz catheter was placed by the ER staff. There is no documentation of how much urine was drained. The patient was then seen by Dr. Arielle Cavazos. I spoke with him yesterday and he let me know that the patient had been admitted. The patient has multiple medical issues, difficulty hearing, difficulty ambulating as well. Alaniz catheter is in place and draining well with good urine output. Urinalysis showed positive nitrites, 5-10 wbc's, 0-2 rbc's. Blood cultures preliminarily with no growth. WBC count was 7.3. The patient has been afebrile. GFR is greater than 60. IMPRESSION AND PLAN: An 83-year-old male with possible urinary retention from recurrent urethral stricture disease. Alaniz catheter is currently in place and draining well. Kidney function is normal. Urologically, the patient can be discharged from my standpoint with Alaniz catheter in place. He will follow up in my office for catheter removal and further treatment of urethral stricture. Unclear why the patient was actually admitted after the Alaniz catheter was in place. I would discharge the patient home on antibiotics as he did appear to have a urine infection, although this was likely a cystitis. He does not appear to have sepsis. 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 Again, urologically, the patient can be discharged home with the indwelling Alaniz catheter unless there are other medical contraindications requiring him to remain hospitalized at this time. Rajeev Paredes MD
[2018-07-02] MEDS: Latanoprost 2.5 ml Opht Soln OD SCH (21:09)
--- NOTE | 2018-07-03 03:02 | CON ---
DATE: 07/02/2018 REASON FOR CONSULTATION: Preop evaluation for ureteral stricture, cardiac evaluation. BRIEF CLINICAL HISTORY: This is an 83-year-old male with past medical history significant for degenerative joint disease, hypothyroidism, congestive heart failure, hypertension, BPH, carpal tunnel syndrome, arthritis, history of ureteral stricture, unary retention, scheduled for cystoscopy in the middle of July. Patient had presented to the emergency room with urinary retention. Cardiology consult was called for preop evaluation. Patient was also found to be bradycardiac. Patient denies any chest pain. Denies any shortness of breath. Denies any palpitation. Denies any documented coronary artery disease. Denies any history of stroke, CVA or CA. PAST MEDICAL HISTORY: Significant for COPD, cervical spine fracture, history of Meniere disease, history of putting ear tube, history of fall, trip while he is coming after the surgery for middle ear for the tube placement, history of decubitus ulcer, hypothyroidism, stage IV decubitus ulcer in the back, carpal tunnel syndrome, cervical radiculopathy, BPH. PAST SURGICAL HISTORY: Significant for colostomy and reversal of colostomy in the past, history of fall, history of tube in the middle ear for Meniere's disease. FAMILY HISTORY: Father and mother, noncontributory. SOCIAL HISTORY: Ex-smoker, quit many years ago. No history of substance abuse. No history of alcohol abuse. ALLERGIES: ALLERGIC WITH DIPHTHERIA TOXOID AND PENICILLIN. CURRENT MEDICATIONS: At home, patient is taking Ecotrin, Tenormin, Pletal, Lasix, Levoxyl, meclizine, Zoloft, Flomax, Mobic and potassium for arthritis. REVIEW OF SYSTEMS: As per HPI. PHYSICAL EXAMINATION: VITAL SIGNS: Height of the patient is 5 feet 8 inches, weight of the patient 175 pounds, body mass index is 26.6 kg/sq m. EKG showed sinus ren, otherwise normal. Temperature 98, heart rate 46, blood pressure 109/60. HEENT: PERRLA. Extraocular muscles intact. NECK: Supple. No carotid bruits or thyromegaly. CHEST: Clear to auscultation. HEART: S1 and S2 regular. ABDOMEN: Soft. EXTREMITIES: Clubbing and cyanosis negative. LABORATORY DATA: Blood workup as follows: WBC 7.3, hemoglobin 12.7, hematocrit 39.5, platelet count 202. Chemistry shows sodium 139, potassium 3.8, chloride 99, carbon dioxide 30, anion gap of 14, BUN 21, creatinine 0.9. Troponin is 0.01. TSH is 6.54 and prostate specific antigen 1.4. IMPRESSION: An 83-year-old male with past medical history significant for cervical radiculopathy, paraesthesia, benign prostatic hypertrophy, ureteral stricture, chronic obstructive pulmonary disease, morbid obesity, history of Meniere disease, history of middle ear tube was placed, bed sores, hypothyroidism, admitted with urinary retention, scheduled for cystoscopy, in the middle of these, probably the procedure is going to be early. RECOMMENDATIONS: We will get echo to assess LV function, for risk stratification, possible patient has moderate risk because of underlying comorbidities, patient's cervical spine fracture in the past, difficult intubation but from Cardiology point of view, no absolute contraindication at this point. We will review the echo, which was done, LV function, also the valvular function. Since the patient is bradycardic, we will cut down the beta emily. Most likely this bradycardia episode is secondary to beta emily. Patient is on 50 mg daily, we will change to 12.5 b.i.d. and we will reassess. We will hold giving the washout briefly for 24 hours and start from tomorrow afternoon. Also for patient's hypothyroidism, we will increase Synthroid to 50 daily. We will start 12.5 of atenolol from tomorrow after giving the washout for 24 hours with holding parameters, hold for heart rate less than 55. We will review the previous cardiac workup if this is not done, then we will repeat echo before patient goes into the surgery. Old electronic record reviewed. Patient had echo on 03/22/2018 that revealed ejection fraction 50%, mild mitral regurgitation, mild tricuspid regurgitation, right ventricular systolic pressure of 41. Patient was seen by us on 03/21/2018 that revealed patient has history of rheumatoid arthritis, history of hypertension, history of hypothyroidism, history of cervical spine surgery in 2011 in [place] for cervical myelopathy. The patient had recent spine fracture, is a hairline, so medical treatment was recommended. Patient was seen for preop but ultimately is the hairline fracture so it was postponed and later on canceled. History of CAT scan at that time shows history of multiple level laminectomy C5-C6 infusion and no interval change from before and that operation was done in 2011 for cervical myelopathy in [place]. In view of both complex cases and hairline fracture, cervical spine surgery was postponed, though patient is cleared for high risk procedure at that time. Patient has a history of rheumatoid arthritis and that leads to possibly a fracture, a hairline fracture of the spine in the past. Since the patient does not have any history of recent chest pain, anginal symptoms, no arrhythmia, no congestive heart failure, we will clear the patient for high risk surgery, though it will be difficult intubation because of the cervical myelopathy and hairline fracture. These things put together patient with a high risk procedure. We will follow with you. We will also reduce as mentioned beta emily and Tenormin to 12.5 b.i.d. Patient has echo. No further echo is warranted or requested as well. Last echo did on 03/22/2018, revealed normal LV function, normal LV size, ejection fraction 65%, mild mitral regurgitation, mild tricuspid regurgitation, right ventricular systolic pressure 41. Thank you, Dr. Reyes, for providing us the opportunity in taking care of the patient, Richard Gonzalez. Jael Royal MD
--- NOTE | 2018-07-03 05:24 | PN ---
DATE: 07/02/2018 SUBJECTIVE: The patient is 83-year-old male. The patient was seen and examined on the bedside on 07/02/2018, looking comfortable, complaining about neck pain. As per the patient, he has bowel movement, looks comfortable. No nausea, vomiting or diarrhea. No hematuria or hematochezia. No swelling of the legs. No chest pain. No palpitation. PHYSICAL EXAMINATION: VITAL SIGNS: Temperature 98, pulse 57, respiratory rate 19, blood pressure 120/60, pulse oximetry 92. HEENT: Head: Normocephalic, atraumatic. Eyes: PERRLA. Extraocular muscles intact. Conjunctivae clear. Nose patent. Mucous membrane moist. NECK: Supple. No carotid bruit. No JVD or thyromegaly. CHEST: Bilaterally symmetrical. HEART: S1 and S2 positive. LUNGS: Clear to auscultation. ABDOMEN: Soft. Bowel sounds present. No organomegaly. EXTREMITIES: No edema. No cyanosis. NEUROLOGIC: The patient is awake and alert. Follow simple commands. MEDICATIONS: Ecotrin, atenolol, Pletal, Cardizem, Lasix, meropenem, levothyroxine, [place] 3, pantoprazole, calcium, Zoloft, Flomax. LABORATORY DATA: We do not have recent labs today, but I reviewed old labs. ASSESSMENT AND PLAN: Mr. Richard Gonzalez is 83-year-old male, has hypertension, peripheral vascular disease, gouty arthritis, Lasix, meropenem, antibiotic, pantoprazole for GI prophylaxis, levothyroxine for hypothyroidism, meclizine for dizziness, Zocor for depression, Flomax as prostate medication. Complaining about neck pain. We will do x-rays. Rule out urinary tract infection and the patient underwent urinary retention, rule out prostate disease, status post colostomy and reversal, arthritis, degenerative joint disease, status post second toe amputation, group B Streptococcus and pneumococcus, hypothyroidism, anxiety, chronic congestive heart failure. Engineering Lecturer is on the case. Urologist is also on the case. Gastrointestinal and deep venous thrombosis prophylaxes. Repeat labs. We will follow up. Malka Reyes MD
[2018-07-03] MEDS: Meropenem IV 1 gm in NS 50 ML IVPB SCH ×3 (06:21→23:20)
[2018-07-03] MEDS: Levothyroxine 50 MCG TAB PO SCH (06:22)
[2018-07-03] MEDS: Pantoprazole 40 mg EC Tab PO SCH (06:22)
[2018-07-03 07:46] LABS: BLOOD UREA NITROGEN 19 mg/dL (7-21); CALCIUM 9.1 mg/dL (8.4-10.5); GFR NON-AFRICAN AMERICAN > 60; HDL CHOLESTEROL 18 mg/dL (29-60)
[2018-07-03 07:50] LABS: IRON 70 ug/dL (45-180)
[2018-07-03 07:57] LABS: LDL CHOLESTEROL 91 mg/dL (0-129)
[2018-07-03 07:59] LABS: % IRON SATURATION 22 % (20-55); TOTAL IRON BINDING CAPACITY 313 ug/dL (261-462)
--- NOTE | 2018-07-03 13:06 | RAD ---
Date of service: 07/03/2018 PROCEDURE: Cervical Spine Radiographs. HISTORY: Pain. COMPARISON: None. FINDINGS: BONES: Examination technically limited. Status post posterior fixation approximately C5 through T2. There also posterior fixation from C2 to the occiput. Evaluation of the vertebral bodies is grossly limited. There is apparent ankylosis of the posterior fixation vertebral bodies, C5-6 and 7. There is anterolisthesis at C2-3. There is extensive spondylosis at C2-3. Narrowed intervertebral disc space noted at C2-3. The height of the vertebral bodies is difficult to evaluate due to the technical limitations. DISC SPACES: As above, a technically limited. Narrowed intervertebral disc space at C2-3. SOFT TISSUES: Normal. No prevertebral soft tissue swelling. OTHER FINDINGS: None. IMPRESSION: Technically limited. Posterior fixation C5 through T2. Posterior fixation C2 to occiput. Anterolisthesis at C2-3 with degenerative disc disease at C2-3. Possible vertebral body ankylosis as above.
--- NOTE | 2018-07-03 14:21 | PN ---
DATE: 07/03/2018 REASON FOR CONSULTATION: Preop evaluation for ureteral stricture, cardiac evaluation. BRIEF CLINICAL HISTORY: The patient denies any chest pain, shortness of breath, or any palpitations, complaining of constipation and feeling ballottement in the belly and gas pain. OBJECTIVE: GENERAL: Not in apparent distress, lying flat in the bed. VITAL SIGNS: Temperature afebrile, heart rate 63, blood pressure 134/65. HEENT: PERRLA. Extraocular muscles intact. NECK: Supple. No carotid bruit. No thyromegaly. CHEST: Clear to auscultation. HEART: S1 and S2 regular. ABDOMEN: Soft. EXTREMITY: Clubbing and cyanosis, negative. LABORATORY DATA: Blood workup as follows: WBC 7.3, hemoglobin 12.7, hematocrit 39.5, platelet count 202. Chemistry shows sodium 130, potassium 3.7, chloride 98, carbon dioxide 32, anion gap of 4, BUN 19, creatinine 0.9. TSH is repeat 3.49, triglycerides 108, total cholesterol 130, LDL 91, HDL 18. IMPRESSION: This is an 83-year-old male with a past medical history significant for degenerative joint disease, hypothyroidism, congestive heart failure, benign prostatic hypertrophy, carpal tunnel syndrome, arthritis, history of ureteral stricture, urinary retention, scheduled for cystoscopy in July admitted with retention, possibly undergoing ureteral surgery. The patient had recently echo dated 03/22/2018 that revealed ejection fraction of 50%, mild mitral regurgitation, mild tricuspid regurgitation, right ventricular systolic pressure of 41, history of rheumatoid arthritis, history of hypertension, history of cervical spine surgery in 2011 in [place] leading to cervical myelopathy. Recent history of a spine fracture, hairline, treated via medical treatment. RECOMMENDATIONS: In view of above, patient is in [id number] risk because of underlying comorbidity, but no absolute contraindication, no evidence of ischemia, no evidence of arrhythmia, no evidence of congestive heart failure. The patient is cleared to go with moderate to high risk as mentioned above. Continue atenolol decreased to 12.5 because of the bradycardia. Continue preoperative beta-emily 12.5 b.i.d.; continue levothyroxine, increased from 25 to 50 because TSH was elevated. We will follow with you. We will give one dose of lactulose because of constipation. We will also supplement potassium on potassium. So, will give sometime to absorb after the lactulose. Thank you, Dr. Reyes, for providing us the opportunity in taking care of Lisa. Jael Royal MD
[2018-07-03] MEDS ORDERED: Potassium Chloride 20 mEq ER Tab PO ONE (15:00)
[2018-07-03] MEDS: Potassium Chloride 20 mEq ER Tab PO SCH (16:56)
[2018-07-03] MEDS: Omega-3-Acid Ethyl Esters 1 GM Cap PO SCH (16:58)
[2018-07-03] MEDS: Cilostazol 100 mg Tab UD PO SCH (16:59)
--- NOTE | 2018-07-03 18:35 | CP.PCM.PN ---
Subjective - Date & Time of Evaluation Date of Evaluation: 07/03/18 Time of Evaluation: 09:30 - Subjective Subjective: No fevers, no dysuria currently, no abdominal pain, no nausea, no diarrhea. Objective - Vital Signs/Intake and Output Vital Signs (last 24 hours): Temp Pulse Resp BP Pulse Ox 98.2 F 56 L 20 131/65 96 07/03/18 06:00 07/03/18 06:00 07/03/18 06:00 07/03/18 06:00 07/03/18 06:00 Intake and Output: 07/02/18 07/03/18 18:59 06:59 Intake Total 50 1380 Output Total 1700 Balance 50 -320 - Medications Medications: Current Medications Allopurinol (Zyloprim) 100 mg PO DAILY [facility] Last Admin: 07/02/18 10:19 Dose: 100 mg Aspirin (Ecotrin) 81 mg PO DAILY [facility] Last Admin: 07/02/18 10:19 Dose: 81 mg Atenolol (Tenormin) 12.5 mg PO BID [facility] Cilostazol (Pletal) 100 mg PO DAILY [facility] Last Admin: 07/02/18 10:19 Dose: 100 mg Colchicine (Colocrys) 0.6 mg PO DAILY [facility] Last Admin: 07/02/18 10:19 Dose: 0.6 mg Furosemide (Lasix) 80 mg PO DAILY [facility] Last Admin: 07/02/18 10:19 Dose: 80 mg Meropenem (Merrem Iv 1 Gm Premix) 50 mls @ 100 mls/hr IVPB Q8 [facility]; Protocol Stop: 07/10/18 10:37 Last Admin: 07/03/18 06:21 Dose: 100 mls/hr Latanoprost (Xalatan Opht) 0 ml OD HS [facility] Last Admin: 07/02/18 21:09 Dose: 1 ml Levothyroxine Sodium (Synthroid) 50 mcg PO 0600 [facility] Last Admin: 07/03/18 06:22 Dose: 50 mcg Meclizine HCl (Antivert) 25 mg PO DAILY [facility] Last Admin: 07/02/18 11:07 Dose: 25 mg Eifaf-9-Yhex Ethyl Esters (Lovaza) 1 gm PO DAILY [facility] Last Admin: 07/02/18 10:19 Dose: 1 gm Pantoprazole Sodium (Protonix Ec Tab) 40 mg PO 0600 [facility] Last Admin: 07/03/18 06:22 Dose: 40 mg Potassium Chloride (K-Dur 20 Meq Er Tab) 20 meq PO DAILY [facility] Last Admin: 07/02/18 10:19 Dose: 20 meq Sertraline HCl (Zoloft) 50 mg PO DAILY [facility] Last Admin: 07/02/18 10:19 Dose: 50 mg Tamsulosin HCl (Flomax) 0.4 mg PO DAILY [facility] Last Admin: 07/02/18 10:19 Dose: 0.4 mg - Labs Labs: 07/01/18 07:14 07/01/18 07:14 PT 12.2 SECONDS (9.4-12.5) 07/01/18 07:14 INR 1.06 07/01/18 07:14 APTT 27.5 Seconds (25.1-36.5) 07/01/18 07:14 - Constitutional Appears: Chronically Ill - Head Exam Head Exam: NORMAL INSPECTION - Respiratory Exam Respiratory Exam: Decreased Breath Sounds - Cardiovascular Exam Cardiovascular Exam: +S1, +S2 - GI/Abdominal Exam GI & Abdominal Exam: Soft. 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
[2018-07-03] MEDS: Latanoprost 2.5 ml Opht Soln OD SCH (23:40)
--- NOTE | 2018-07-04 00:25 | PN ---
DATE: 07/03/2018 SUBJECTIVE: The patient is an 83-year-old male. The patient was seen and examined on the bedside on 07/03/2018, looking comfortable. No fever, no chills. No dysuria. No hematuria. No headache. No dizziness. No chest pain. No palpitation. No diarrhea. No shortness of breath. No back pain. PHYSICAL EXAMINATION: VITAL SIGNS: Temperature 98.2, pulse is 56, respiratory rate 20, blood pressure 130/65, pulse oximetry 96%. HEENT: Head: Normocephalic, atraumatic. Eyes: PERRLA. Extraocular muscles intact. Mucous membrane moist. NECK: Supple. No carotid bruit. No JVD or thyromegaly. CHEST: Bilaterally symmetrical. HEART: S1 and S2 positive. LUNGS: Clear to auscultation. ABDOMEN: Soft. Bowel sounds present. No organomegaly. EXTREMITIES: No edema. No cyanosis. NEUROLOGIC: The patient is awake and alert. Moving all 4 extremities. No focal deficits. MEDICATIONS: Allopurinol, aspirin, Tenormin, Pletal, colchicine, Lasix, meropenem, levothyroxine, Antivert, [place]-3, pantoprazole, potassium, Zoloft, Flomax. LABORATORY DATA: White blood cells 7.3, hemoglobin 12.7, hematocrit 39.5, platelets 202. Sodium 139, potassium 3.8. BUN 21, creatinine 0.9. Glucose 98. ASSESSMENT AND PLAN: Mr. Richard Gonzalez is an 83-year-old male with anemia, urinary tract infection due to extended-spectrum beta-lactamase Klebsiella and the patient with urinary retention, rule out prostate disease, status post colostomy and reversal, arthritis, degenerative joint disease, gastroesophageal reflux disease, status post second toe osteomyelitis with group B strep and pseudomonas, hypothyroidism, anxiety, chronic congestive heart failure, continue on Merrem, day 3 and it should be 7 to 10 days of antibiotics. Prostate-specific antigen level is 1.4. Urologist is on the case. Discussion done with the patient and the patient's nursing staff. I reviewed Dr. Torito Trejo's notes and Dr. Royal's notes also. The patient has history of carpal tunnel syndrome, arthritis, history of ureteral stricture, urinary retention, scheduled for cystoscopy in July, admitted with retention, possibly undergoing ureteral surgery. The patient had recently echo done. History of spine fracture, hairline, treated medically. No evidence of ischemia, the patient is [id number] risk because of underlying comorbidities, but no absolute contraindication. No heart failure. No evidence of ischemia or arrhythmias. The patient will go for surgery with [id number] risk as per library circulation assistant. Continue atenolol. Gastrointestinal and deep vein thrombosis prophylaxes. Repeat labs. We will follow up. Malka Reyes MD
[2018-07-04] MEDS: Simethicone 80 mg Chewtab PO PRN (01:29)
[2018-07-04] MEDS: Meropenem IV 1 gm in NS 50 ML IVPB SCH ×3 (05:51→21:32)
[2018-07-04] MEDS: Pantoprazole 40 mg EC Tab PO SCH (05:51)
[2018-07-04] MEDS: Levothyroxine 50 MCG TAB PO SCH (05:51)
--- NOTE | 2018-07-04 07:57 | CON ---
DATE: 07/03/2018 UROLOGY CONSULTATION REQUESTING PHYSICIAN: Paul Cardenas JD/ CONSULTATION FILLED BY: Arielle Cavazos MD REASON FOR CONSULTATION: Urinary retention. HISTORY OF PRESENT ILLNESS: The patient is an 83-year-old male with urinary retention. The patient is in otherwise fair health. The patient reports a 1-day history of inability to void. He reports that he had some difficulty with bowel movements as well. The patient presented to the emergency room. He reports lower abdominal pain. No fever. No hematuria. The patient has occasional back pain. The patient had a Alaniz catheter inserted. He reported that he is feeling comfortable at present. Mr. Gonzalez reports that he has had scarring in the urethra. He has had previous cystoscopy for treatment of the scarring in the urethra. This probably represents urethral stricture disease. Mr. Gonzalez reports that he has not had the cystoscopy for approximately 6-12 months. No flank pain. No fever or rigors. No hematuria. The patient reports good appetite. No nausea, vomiting. The patient has history of previous colon resection. He reports that he did not have tumor. He had no chemotherapy. No radiation therapy. The patient also reported that he had cervical spine surgery and had a cervical myelopathy. PHYSICAL EXAMINATION: GENERAL: The patient is a well-developed, well-nourished elderly male. ABDOMEN: Soft, nontender, nondistended. No mass or organomegaly. BACK: No CVA tenderness. The urine is clear via the Alaniz catheter. GENITALIA: Without inflammation. Scrotal contents without inflammation. RECTAL: Normal sphincter tone. Prostate is normal in size. Prostate is approximately 15-20 g size. Prostate is firm and symmetric and demonstrates [id number] induration. IMPRESSION: Urinary retention, history of urethral stricture, history of previous colon resection. RECOMMENDATION AND PLAN: Alaniz catheter indwelling. Please obtain urine culture and urinalysis. Please obtain serum PSA. Further therapy to follow according to the patient's clinical course. ADDENDUM Upon further questioning, the patient reported to me that he is followed by Dr. Paredes and he prefers Dr. Paredes, and the patient prefers continued urologic care with Dr. Paredes. Thank you for recommending the patient for Urology consultation. Arielle MD Macy cc: Paul Cardenas JD/ MD Malka Tomas MD.
--- NOTE | 2018-07-04 08:00 | CP.PCM.PN ---
Subjective - Date & Time of Evaluation Date of Evaluation: 07/04/18 Time of Evaluation: 06:45 - Subjective Subjective: Awake, alert, no distress,denies shortness of breath Reason for consultation and follow up: Cardiac evaluation for pre-op cystoscopy for ureteral stricture ,history of BPH,congestive heart failure, hypothyroidism Seen and examined by me and Dr. Royal Objective - Vital Signs/Intake and Output Vital Signs (last 24 hours): Temp Pulse Resp BP Pulse Ox 98.6 F 62 20 149/75 96 07/04/18 06:00 07/04/18 06:00 07/04/18 06:00 07/04/18 06:00 07/03/18 06:00 Intake and Output: 07/04/18 07/04/18 06:59 18:59 Intake Total 200 Output Total 1000 Balance -800 - Medications Medications: Current Medications Allopurinol (Zyloprim) 100 mg PO DAILY [facility] Last Admin: 07/03/18 17:00 Dose: 100 mg Aspirin (Ecotrin) 81 mg PO DAILY [facility] Last Admin: 07/03/18 17:00 Dose: Not Given Atenolol (Tenormin) 12.5 mg PO BID [facility] Last Admin: 07/03/18 16:59 Dose: 12.5 mg Cilostazol (Pletal) 100 mg PO DAILY [facility] Last Admin: 07/03/18 16:59 Dose: 100 mg Colchicine (Colocrys) 0.6 mg PO DAILY [facility] Last Admin: 07/03/18 16:56 Dose: 0.6 mg Furosemide (Lasix) 80 mg PO DAILY [facility] Last Admin: 07/03/18 16:57 Dose: 80 mg Meropenem (Merrem Iv 1 Gm Premix) 50 mls @ 100 mls/hr IVPB Q8 [facility]; Protocol Stop: 07/10/18 10:37 Last Admin: 07/04/18 05:51 Dose: 100 mls/hr Latanoprost (Xalatan Opht) 0 ml OD HS [facility] Last Admin: 07/03/18 23:40 Dose: 2.5 ml Levothyroxine Sodium (Synthroid) 50 mcg PO 0600 [facility] Last Admin: 07/04/18 05:51 Dose: 50 mcg Meclizine HCl (Antivert) 25 mg PO DAILY [facility] Last Admin: 07/03/18 16:56 Dose: 25 mg Ewxtg-9-[id number] Ethyl Esters (Lovaza) 1 gm PO DAILY [facility] Last Admin: 07/03/18 16:58 Dose: Not Given Pantoprazole Sodium (Protonix Ec Tab) 40 mg PO 0600 [facility] Last Admin: 07/04/18 05:51 Dose: 40 mg Potassium Chloride (K-Dur 20 Meq Er Tab) 20 meq PO DAILY [facility] Last Admin: 07/03/18 16:56 Dose: 20 meq Sertraline HCl (Zoloft) 50 mg PO DAILY [facility] Last Admin: 07/03/18 17:00 Dose: 50 mg Simethicone (Mylicon Chew Tab) 80 mg PO [facility] PRN PRN Reason: GI distress Last Admin: 07/04/18 01:29 Dose: 80 mg Tamsulosin HCl (Flomax) 0.4 mg PO DAILY [facility] Last Admin: 07/03/18 16:56 Dose: 0.4 mg - Labs Labs: 07/01/18 07:14 07/03/18 06:20 PT 12.2 SECONDS (9.4-12.5) 07/01/18 07:14 INR 1.06 07/01/18 07:14 APTT 27.5 Seconds (25.1-36.5) 07/01/18 07:14 - Constitutional Appears: No Acute Distress - Eye Exam Eye Exam: Normal appearance - ENT Exam ENT Exam: Mucous Membranes Moist - Cardiovascular Exam Cardiovascular Exam: REGULAR RHYTHM, +S1, +S2 - GI/Abdominal Exam GI & Abdominal Exam: Soft, Normal Bowel Sounds - Exam Additional comments: wing catheter - Neurological Exam Neurological Exam: Alert, Awake, Oriented x3 - Psychiatric Exam Psychiatric exam: Normal Affect - Skin Skin Exam: Dry, Warm Assessment and Plan - Assessment and Plan (Free Text) Assessment: An 83 year old male who came in to the ER due to complaining of inability to urinate.History of congestive heart failure, hypothyroidism degenerative joint disease,hypertension, BPH, and carpal tunnel of bilateral wrist/arthritis. Wing catheter was inserted for urinary retention. He was scheduled for cystoscopy this July. Consult was called to evaluate CHF and cardiac clearance for possible surgery. Cleared for surgery/procedure. moderate to high risk. No evidence of CHF,no evidence of ischemia or arrythmia. Plan: No distress, feels okay Denies shortness of breath Stable heart rate Controlled blood pressure Cardiac status stable Cleared for surgery from cardiac standpoint Positive for UTI, on IV antibiotics per ID Continue current medications Continue current treatment Will follow up Plan and treatment discussed with Dr. Royal
[2018-07-04] MEDS: Omega-3-Acid Ethyl Esters 1 GM Cap PO SCH (10:47)
[2018-07-04] MEDS: Potassium Chloride 20 mEq ER Tab PO SCH (10:47)
[2018-07-04] MEDS: Cilostazol 100 mg Tab UD PO SCH (10:48)
--- NOTE | 2018-07-04 16:39 | PN ---
DATE: 07/04/2018 SUBJECTIVE: Patient was seen earlier this morning in room 268, bed 2. He is comfortable. The patient's nurse states it an uneventful night. No fevers. No chills. No nausea or vomiting. PHYSICAL EXAMINATION: VITAL SIGNS: Temperature is 98, blood pressure is 113/59, respiratory rate of 19, and heart rate of 77. HEENT: Unremarkable. NECK: Supple. LUNGS: Decreased breath sounds. HEART: Normal S1 and S2. ABDOMEN: Soft and nontender. No organomegaly. No rebound. No guarding. No masses. LABORATORY EXAMINATION: Reveals a white count of 7.3, hemoglobin of 12, and platelets of 202. Chemistries are noted with a BUN of 19, creatinine of 0.9. Urinalysis is noted. Microbiology reveals the blood cultures are no growth. Urine culture has Klebsiella pneumonia, this was from ESBL Klebsiella. Review of orders reveals the patient to be on meropenem. ASSESSMENT AND PLAN: An 83-year-old male who was seen earlier this morning in 268, bed 2, who was admitted with extended-spectrum beta-lactamases Klebsiella urinary tract infection with urinary retention and patient with a history of arthritis, degenerative joint disease, status post second toe osteomyelitis with group B streptococcus and pseudomonas, hypothyroidism, anxiety, congestive heart failure. Today is day #4 of meropenem, would complete 7 to 10 days and PATIENT IS ALLERGIC TO PENICILLIN with a relatively normal PSA in a patient who has a known case of benign prostatic hypertrophy. I will follow with you. Topher Macias MD
[2018-07-04] MEDS: Latanoprost 2.5 ml Opht Soln OD SCH (21:32)
[2018-07-05] MEDS: Simethicone 80 mg Chewtab PO PRN ×3 (02:10→17:04)
[2018-07-05] MEDS: Meropenem IV 1 gm in NS 50 ML IVPB SCH ×3 (06:02→21:12)
[2018-07-05] MEDS: Pantoprazole 40 mg EC Tab PO SCH (06:02)
[2018-07-05] MEDS: Levothyroxine 50 MCG TAB PO SCH (06:02)
--- NOTE | 2018-07-05 07:44 | CP.PCM.PN ---
Subjective - Date & Time of Evaluation Date of Evaluation: 07/05/18 Time of Evaluation: 06:30 - Subjective Subjective: Awake, alert, no distress,denies shortness of breath Reason for consultation and follow up: Cardiac evaluation for pre-op cystoscopy for ureteral stricture ,history of BPH,congestive heart failure, hypothyroidism Seen and examined by me and Dr. Royal Objective - Vital Signs/Intake and Output Vital Signs (last 24 hours): Temp Pulse Resp BP Pulse Ox 98.6 F 68 20 116/65 96 07/04/18 19:10 07/04/18 19:10 07/04/18 19:10 07/04/18 19:10 07/04/18 19:10 Intake and Output: 07/05/18 07/05/18 06:59 18:59 Intake Total 180 Output Total 700 Balance -520 - Medications Medications: Current Medications Allopurinol (Zyloprim) 100 mg PO DAILY [facility] Last Admin: 07/04/18 10:47 Dose: 100 mg Aspirin (Ecotrin) 81 mg PO DAILY [facility] Last Admin: 07/04/18 11:16 Dose: Not Given Atenolol (Tenormin) 12.5 mg PO BID [facility] Last Admin: 07/04/18 18:22 Dose: 12.5 mg Cilostazol (Pletal) 100 mg PO DAILY [facility] Last Admin: 07/04/18 10:48 Dose: 100 mg Colchicine (Colocrys) 0.6 mg PO DAILY [facility] Last Admin: 07/04/18 10:48 Dose: 0.6 mg Furosemide (Lasix) 80 mg PO DAILY [facility] Last Admin: 07/04/18 10:48 Dose: 80 mg Meropenem (Merrem Iv 1 Gm Premix) 50 mls @ 100 mls/hr IVPB Q8 [facility]; Protocol Stop: 07/10/18 10:37 Last Admin: 07/05/18 06:02 Dose: 100 mls/hr Lactulose (Enulose) 10 gm PO DAILY [facility] Last Admin: 07/04/18 11:59 Dose: 10 gm Latanoprost (Xalatan Opht) 0 ml OD HS [facility] Last Admin: 07/04/18 21:32 Dose: 2.5 ml Levothyroxine Sodium (Synthroid) 50 mcg PO 0600 [facility] Last Admin: 07/05/18 06:02 Dose: 50 mcg Meclizine HCl (Antivert) 25 mg PO DAILY [facility] Last Admin: 07/04/18 10:48 Dose: 25 mg Dinzh-4-Rzfu Ethyl Esters (Lovaza) 1 gm PO DAILY [facility] Last Admin: 07/04/18 10:47 Dose: 1 gm Pantoprazole Sodium (Protonix Ec Tab) 40 mg PO 0600 [facility] Last Admin: 07/05/18 06:02 Dose: 40 mg Potassium Chloride (K-Dur 20 Meq Er Tab) 20 meq PO DAILY [facility] Last Admin: 07/04/18 10:47 Dose: 20 meq Sertraline HCl (Zoloft) 50 mg PO DAILY [facility] Last Admin: 07/04/18 10:47 Dose: 50 mg Simethicone (Mylicon Chew Tab) 80 mg PO [facility] PRN PRN Reason: GI distress Last Admin: 07/05/18 02:10 Dose: 80 mg Tamsulosin HCl (Flomax) 0.4 mg PO DAILY [facility] Last Admin: 07/04/18 10:48 Dose: 0.4 mg - Labs Labs: 07/01/18 07:14 07/03/18 06:20 PT 12.2 SECONDS (9.4-12.5) 07/01/18 07:14 INR 1.06 07/01/18 07:14 APTT 27.5 Seconds (25.1-36.5) 07/01/18 07:14 - Constitutional Appears: No Acute Distress - Eye Exam Eye Exam: Normal appearance - ENT Exam ENT Exam: Mucous Membranes Moist - Respiratory Exam Respiratory Exam: Decreased Breath Sounds, Clear to Ausculation Bilateral, NORMAL BREATHING PATTERN - Cardiovascular Exam Cardiovascular Exam: +S1, +S2 - GI/Abdominal Exam GI & Abdominal Exam: Soft, Normal Bowel Sounds - Exam Additional comments: wing catheter - Extremities Exam Extremities Exam: Normal Capillary Refill - Neurological Exam Neurological Exam: Alert, Awake, Oriented x3 - Psychiatric Exam Psychiatric exam: Normal Affect - Skin Skin Exam: Intact, Warm Assessment and Plan - Assessment and Plan (Free Text) Assessment: An 83 year old male who came in to the ER due to complaining of inability to urinate.History of congestive heart failure, hypothyroidism degenerative joint disease,hypertension, BPH, and carpal tunnel of bilateral wrist/arthritis. Wing catheter was inserted for urinary retention. He was scheduled for cystoscopy this July. Consult was called to evaluate CHF and cardiac clearance for possible surgery. Cleared for surgery/procedure. moderate to high risk. No evidence of CHF,no evidence of ischemia or arrythmia. Seen by urology but prefer to follow up with his urologist (Dr. Paredes) for further blessing tment. Plan: Complaining of gas pains, was given Simethicon last night with some relief, Repositioned and encourage to go to bathroom and have bowel movement No distress, Denies shortness of breath Stable heart rate Controlled blood pressure Cardiac status stable Cleared for surgery from cardiac standpoint Positive for Urinary tract infection ( urine culture Klebsella Pneumonaie) Continue IV antibiotics per ID Continue current medications Continue current treatment Will follow up Plan and treatment discussed with Dr. Royal
[2018-07-05 07:54] LABS: BASO # 0.02 K/mm3 (0.0-2.0); BASO % 0.2 % (0.0-3.0); EOS # 0.3 (0.0-0.7); EOS % 3.1 % (1.5-5.0); GRAN # 5.84 (1.4-6.5); GRAN % 68.8 % (50.0-68.0); HEMOGLOBIN 13.3 g/dL (14.0-18.0); LYMPH # 1.6 (1.2-3.4); LYMPH % 18.4 % (22.0-35.0); MEAN CORPUSCULAR HEMOGLOBIN 29.4 pg (25.0-35.0); MEAN CORPUSCULAR HGB CONC 32.7 g/dl (31.0-37.0); MEAN PLATELET VOLUME 10.8 fl (7.0-11.0); MONO # 0.8 (0.1-0.6); MONO % 9.5 % (1.0-6.0); RBC 4.52 10^6/uL (3.5-6.1); WHITE BLOOD COUNT 8.5 10^3/ul (4.5-11.0)
[2018-07-05 08:09] LABS: ALB/GLOB RATIO 1.1 (1.1-1.8); ALBUMIN 3.8 g/dL (3.0-4.8); ALT/SGPT 29 U/L (7-56); AST/SGOT 29 U/L (17-59); BLOOD UREA NITROGEN 17 mg/dL (7-21); CALCIUM 9.7 mg/dL (8.4-10.5); GFR NON-AFRICAN AMERICAN > 60
--- NOTE | 2018-07-05 08:50 | PN ---
DATE: 07/04/2018 REASON FOR DICTATION: Initial progress note dictated by nurse practitioner. The patient had, as mentioned, echocardiography done on 03/22/2018 that shows ejection fraction of 50%. Mild MR. Mild TR. The patient is cleared from Cardiology point of view to go for cystoscopy. No evidence of acute ischemia, congestive heart failure or arrhythmia. We will clear to go for surgery. The patient is hemodynamically stable. We will discontinue Telemetry as well. Awaiting for evaluation and if this can be done as outpatient, the patient can be discharged home. The patient still complaining of some constipation. We will give some lactulose. Repeat the blood workup tomorrow and we will supplement potassium. Last potassium was 3.7, supplemented yesterday. We will repeat tomorrow. If the patient is not going on admission, okay to be discharged from Cardiology point of view. Continue perioperative beta-emily. , so we will continue current antihypertensive regimen. Jael Royal MD
--- NOTE | 2018-07-05 09:10 | PN ---
DATE: 07/04/2018 SUBJECTIVE: The patient is 83-year-old male. The patient was seen and examined at the bedside on 07/04/2018 looking comfortable. No nausea, vomiting, or diarrhea. No hematuria, no hematochezia. No swelling of the leg. No chest pain, no palpitation. Appetite is getting better. PHYSICAL EXAMINATION: VITAL SIGNS: Temperature 98.6, pulse 62, respiratory rate 18, blood pressure 114/75, pulse oximetry 96. HEENT: Head: Normocephalic, atraumatic. Eyes: PERRLA. Extraocular muscles intact. Conjunctivae clear. Nose patent. Mucous membrane moist. NECK: Supple. No carotid bruit. No JVD or thyromegaly. CHEST: Bilaterally symmetrical. HEART: S1, S2 positive. LUNGS: Clear to auscultation. ABDOMEN: Soft. Bowel sounds present. No organomegaly. EXTREMITIES: No edema, no cyanosis. NEUROLOGICAL: The patient is awake, alert, moving all four extremities. No focal deficits. MEDICATIONS: Allopurinol, aspirin, atenolol, Pletal, colchicine, Lasix, Merrem, eyedrops, Synthroid, antibiotics, Protonix, Zoloft, Flomax. LABORATORY DATA: White blood cell is 7.3, hemoglobin 12.7, hematocrit 39.5, platelets 280. Sodium 130, potassium 3.7, BUN 9, creatinine 0.9, glucose 87. ASSESSMENT AND PLAN: Mr. Richard Gonzalez is an 83-year-old male with anemia, history of gouty arthritis, hypertension, peripheral vascular disease, hypothyroidism, history of dizziness, depression, benign prostatic hypertrophy, obstructive uropathy, congestive heart failure, degenerative joint disease, carpal tunnel syndrome bilaterally, history of ureteral stricture, urinary retention, has Alaniz catheter, is scheduled for cystoscopy in July by Dr. Paredes. The patient is getting antibiotics, not in distress, seen by mold yard supervisor and Infectious Disease. Has an extended-spectrum beta-lactamase, Klebsiella urinary tract infection with urinary retention, status post second toe osteomyelitis with group B Streptococcus and Pseudomonas. Today was day 4 of Merrem, would complete 7 to 10 days. relatively normal PSA in a patient who has a known case of benign prostatic hypertrophy. Gastric and deep venous thrombosis prophylaxes. Repeat labs. We will follow. Malka Reyes MD [facility] # [id number] MTDValeria
[2018-07-05] MEDS: Omega-3-Acid Ethyl Esters 1 GM Cap PO SCH ×2 (09:38→09:45)
[2018-07-05] MEDS: Potassium Chloride 20 mEq ER Tab PO SCH (09:38)
[2018-07-05] MEDS: Cilostazol 100 mg Tab UD PO SCH (09:39)
[2018-07-05] MEDS ORDERED: Potassium Chloride 20 mEq ER Tab PO ONE (15:43)
[2018-07-05] MEDS: Latanoprost 2.5 ml Opht Soln OD SCH (21:13)
--- NOTE | 2018-07-06 00:27 | PN ---
DATE: 07/05/2018 SUBJECTIVE: The patient is in bed in no acute distress, nontoxic. PHYSICAL EXAMINATION: VITAL SIGNS: Temperature is 97, blood pressure is 150/90, respiratory rate of 20. HEENT: Examination of HEENT is unremarkable. NECK: Supple. LUNGS: Have decreased breath sounds. HEART: Normal S1 and S2. ABDOMEN: Soft. LABORATORY EXAMINATION: Reveals a white count of 8.5, hemoglobin of 13, platelets of 168. Chemistries reveals a BUN of 17, creatinine of 0.9. Urinalysis is noted. Microbiology reveals the Klebsiella pneumoniae. The blood cultures are negative. ASSESSMENT AND PLAN: An 83-year-old male who was seen earlier this morning with an extended-spectrum beta-lactamase Klebsiella urinary tract infection and urinary retention, history of arthritis, degenerative joint disease, status post second toe osteomyelitis with group B strep and Pseudomonas, hypothyroidism, anxiety, congestive heart failure, day #5 of meropenem with complete 7-10 days. Review of orders reveals meropenem to be active. We will follow with you. Topher Macias MD
[2018-07-06] MEDS: Simethicone 80 mg Chewtab PO PRN ×3 (02:05→14:32)
--- NOTE | 2018-07-06 02:51 | PN ---
DATE: 07/05/2018 SUBJECTIVE: Patient is an 83-year-old male. Patient was seen and examined on the bedside on 07/05/2018, looking comfortable. Feeling better. No distress. No shortness of breath. No nausea, vomiting, or diarrhea. No hematuria or hematochezia. No swelling of the legs. No chest pain. No palpitation. lower abd. pain is getting better. PHYSICAL EXAMINATION: VITAL SIGNS: Temperature 98.6, pulse 58, respiratory rate 20, blood pressure 113/65, pulse oximetry 96%. HEENT: Head: Normocephalic, atraumatic. Eyes: PERRLA. Extraocular muscles intact. Conjunctivae clear. Nose patent. Mucous membrane moist. NECK: Supple. No carotid bruit, JVD, or thyromegaly. CHEST: Bilaterally symmetrical. HEART: S1 and S2 positive. LUNGS: Clear to auscultation. ABDOMEN: Soft. Bowel sounds present. No organomegaly. EXTREMITIES: No edema. No cyanosis. NEUROLOGIC: Patient is awake and alert. Moving all 4 extremities. No focal deficit. MEDICATIONS: Allopurinol, Ecotrin, Tenormin, Pletal, Lasix, Merrem, lactulose, levothyroxine, Antivert, Protonix, Zoloft, simethicone, Flomax. LABORATORY DATA: White blood cells 7.3, hemoglobin 12.7, hematocrit 39.5, platelets 202. Sodium 138, potassium 3.7, BUN 19, creatinine 0.9, glucose 87. ASSESSMENT AND PLAN: Mr. Richard Gonzalez is an 83-year-old male with anemia, history of urinary retention, congestive heart failure, hypothyroidism, degenerative joint disease, hypertension, benign prostatic hypertrophy, carpal tunnel syndrome bilaterally with arthritis, Alaniz catheter indwelling for urinary retention, history of ureteral stricture. Patient is scheduled for cystoscopy in July. According to elevator installer, patient is cleared for surgery in [id number] risk. No evidence of congestive heart failure right now. No evidence of ischemia or arrhythmias. Urologist and Infectious Disease is on the case. Continue antibiotics as per Dr. Macias. Today is day 4 of Merrem, would complete in 7 to 10 days. PATIENT IS ALLERGIC TO PENICILLIN with relatively normal prostate-specific antigen in a patient who has known case of benign prostatic hypertrophy. Gastrointestinal and deep venous thrombosis prophylaxes. Discussion done with the patient. We will follow up. Malka Reyes MD [facility]
[2018-07-06] MEDS: Levothyroxine 50 MCG TAB PO SCH (06:13)
[2018-07-06] MEDS: Meropenem IV 1 gm in NS 50 ML IVPB SCH ×3 (06:13→21:31)
[2018-07-06] MEDS: Pantoprazole 40 mg EC Tab PO SCH (06:13)
--- NOTE | 2018-07-06 07:25 | CP.PCM.PN ---
Subjective - Date & Time of Evaluation Date of Evaluation: 07/06/18 Time of Evaluation: 06:30 - Subjective Subjective: Awake, alert, no distress,denies shortness of breath Reason for consultation and follow up: Cardiac evaluation for pre-op cystoscopy for ureteral stricture ,history of BPH,congestive heart failure, hypothyroidism Seen and examined by me and Dr. Royal Objective - Vital Signs/Intake and Output Vital Signs (last 24 hours): Temp Pulse Resp BP Pulse Ox 98.1 F 57 L 20 121/61 97 07/05/18 23:16 07/05/18 23:16 07/05/18 23:16 07/05/18 23:16 07/05/18 23:16 Intake and Output: 07/06/18 07/06/18 06:59 18:59 Output Total 1700 Balance -1700 - Medications Medications: Current Medications Allopurinol (Zyloprim) 100 mg PO DAILY [facility] Last Admin: 07/05/18 09:38 Dose: 100 mg Aspirin (Ecotrin) 81 mg PO DAILY [facility] Last Admin: 07/05/18 09:40 Dose: 81 mg Atenolol (Tenormin) 12.5 mg PO BID [facility] Last Admin: 07/05/18 17:03 Dose: 12.5 mg Cilostazol (Pletal) 100 mg PO DAILY [facility] Last Admin: 07/05/18 09:39 Dose: 100 mg Colchicine (Colocrys) 0.6 mg PO DAILY [facility] Last Admin: 07/05/18 09:40 Dose: 0.6 mg Furosemide (Lasix) 80 mg PO DAILY [facility] Last Admin: 07/05/18 09:38 Dose: 80 mg Home Med (Home Med) 1 unit PO DAILY [facility] Meropenem (Merrem Iv 1 Gm Premix) 50 mls @ 100 mls/hr IVPB Q8 [facility]; Protocol Stop: 07/10/18 10:37 Last Admin: 07/06/18 06:13 Dose: 100 mls/hr Lactulose (Enulose) 10 gm PO DAILY [facility] Last Admin: 07/05/18 09:40 Dose: 10 gm Latanoprost (Xalatan Opht) 0 ml OD HS [facility] Last Admin: 07/05/18 21:13 Dose: 2.5 ml Levothyroxine Sodium (Synthroid) 50 mcg PO 0600 [facility] Last Admin: 07/06/18 06:13 Dose: 50 mcg Meclizine HCl (Antivert) 25 mg PO DAILY [facility] Last Admin: 07/05/18 09:40 Dose: 25 mg Foduf-4-Vgzu Ethyl Esters (Lovaza) 1 gm PO DAILY [facility] Last Admin: 07/05/18 09:38 Dose: 1 gm Pantoprazole Sodium (Protonix Ec Tab) 40 mg PO 0600 [facility] Last Admin: 07/06/18 06:13 Dose: 40 mg Potassium Chloride (K-Dur 20 Meq Er Tab) 20 meq PO DAILY [facility] Last Admin: 07/05/18 09:38 Dose: 20 meq Sertraline HCl (Zoloft) 50 mg PO DAILY [facility] Last Admin: 07/05/18 09:40 Dose: 50 mg Simethicone (Mylicon Chew Tab) 80 mg PO [facility] PRN PRN Reason: GI distress Last Admin: 07/06/18 02:05 Dose: 80 mg Tamsulosin HCl (Flomax) 0.4 mg PO DAILY [facility] Last Admin: 07/05/18 09:40 Dose: 0.4 mg - Labs Labs: 07/05/18 07:00 07/05/18 07:00 PT 12.2 SECONDS (9.4-12.5) 07/01/18 07:14 INR 1.06 07/01/18 07:14 APTT 27.5 Seconds (25.1-36.5) 07/01/18 07:14 - Constitutional Appears: No Acute Distress - Eye Exam Eye Exam: Normal appearance - ENT Exam ENT Exam: Mucous Membranes Moist - Respiratory Exam Respiratory Exam: Decreased Breath Sounds, Clear to Ausculation Bilateral, NORMAL BREATHING PATTERN - Cardiovascular Exam Cardiovascular Exam: +S1, +S2 - GI/Abdominal Exam GI & Abdominal Exam: Soft, Normal Bowel Sounds - Exam Additional comments: wing catheter - Neurological Exam Neurological Exam: Alert, Awake, Oriented x3 - Psychiatric Exam Psychiatric exam: Normal Affect - Skin Skin Exam: Intact, Warm Assessment and Plan - Assessment and Plan (Free Text) Assessment: An 83 year old male who came in to the ER due to complaining of inability to urinate.History of congestive heart failure, hypothyroidism degenerative joint disease,hypertension, BPH, and carpal tunnel of bilateral wrist/arthritis. Wing catheter was inserted for urinary retention. He was scheduled for cystoscopy this July. Consult was called to evaluate CHF and cardiac clearance for possible surgery. Cleared for surgery/procedure. moderate to high risk. No evidence of CHF,no evidence of ischemia or arrythmia. Seen by urology but prefer to follow up with his urologist (Dr. Paredes) for further treatment.Cardiac status stable. Patient not going for any procedure. Will sign off. Refer accordingly. Plan: Cardiac status stable No distress, Denies shortness of breath Stable heart rate Controlled blood pressure Cardiac status stable Cleared for surgery from cardiac standpoint Positive for Urinary tract infection ( urine culture Klebsella Pneumonaie) Continue IV antibiotics per ID Continue current medications Continue current treatment Will sign off and refer accordingly Plan and treatment discussed with Dr. Royal
[2018-07-06] MEDS: Potassium Chloride 20 mEq ER Tab PO SCH (09:43)
[2018-07-06] MEDS: Cilostazol 100 mg Tab UD PO SCH (09:44)
[2018-07-06] MEDS: Omega-3-Acid Ethyl Esters 1 GM Cap PO SCH (09:44)
[2018-07-06] MEDS: [UNRECOGNIZED DRUG - OTHER] PO SCH (09:49)
--- NOTE | 2018-07-06 15:59 | PN ---
DATE: 07/05/2018 This note is an addendum to initial progress note. The patient is seen and discussed with the patient and primary care attending. The patient is cleared to go to urologist. Procedure is going to be done this admission, otherwise we will continue as outpatient. Cleared from cardiology point of view. No further cardiac workup is planned at this time, but the patient's antibiotic is completed. The patient can be discharged home. We will sign off and glad to follow p.r.n. We will supplement potassium. Thank you, Dr. Reyes, for providing us the opportunity in taking care of the patient, Richard Gonzalez. Jael Royal MD
--- NOTE | 2018-07-06 16:02 | PN ---
DATE: 07/06/2018 Patient is 83. Patient feels a lot better. Patient was seen initially for preop evaluation, for cystoscopy, for urethral stricture. Denies chest pain, shortness of breath or any palpitation. This note is an addendum to initial progress noted dictated by nurse practitioner. The patient is cleared to go for cystoscopy. Telemetry was discontinued. Since then, no active cardiac problems, will sign off. I am glad to follow p.r.n. The patient is cleared to be discharged when stable from Neurology point of view. Monitor electrolytes, monitor lab and supplement as needed. Thank you, Dr. Reyes, for providing us the opportunity in taking care of the patient, Richard Gonzalez. Jael Royal MD
--- NOTE | 2018-07-06 18:11 | CP.PCM.PN ---
Subjective - Date & Time of Evaluation Date of Evaluation: 07/06/18 Time of Evaluation: 11:20 - Subjective Subjective: Afebrile, not in distress. Objective - Vital Signs/Intake and Output Vital Signs (last 24 hours): Temp Pulse Resp BP Pulse Ox 98.1 F 57 L 20 121/61 97 07/05/18 23:16 07/05/18 23:16 07/05/18 23:16 07/05/18 23:16 07/05/18 23:16 Intake and Output: 07/05/18 07/06/18 18:59 06:59 Output Total 400 1700 Balance -400 -1700 - Medications Medications: Current Medications Allopurinol (Zyloprim) 100 mg PO DAILY [facility] Last Admin: 07/05/18 09:38 Dose: 100 mg Aspirin (Ecotrin) 81 mg PO DAILY [facility] Last Admin: 07/05/18 09:40 Dose: 81 mg Atenolol (Tenormin) 12.5 mg PO BID [facility] Last Admin: 07/05/18 17:03 Dose: 12.5 mg Cilostazol (Pletal) 100 mg PO DAILY [facility] Last Admin: 07/05/18 09:39 Dose: 100 mg Colchicine (Colocrys) 0.6 mg PO DAILY [facility] Last Admin: 07/05/18 09:40 Dose: 0.6 mg Furosemide (Lasix) 80 mg PO DAILY [facility] Last Admin: 07/05/18 09:38 Dose: 80 mg Home Med (Home Med) 1 unit PO DAILY [facility] Meropenem (Merrem Iv 1 Gm Premix) 50 mls @ 100 mls/hr IVPB Q8 [facility]; Protocol Stop: 07/10/18 10:37 Last Admin: 07/06/18 06:13 Dose: 100 mls/hr Lactulose (Enulose) 10 gm PO DAILY [facility] Last Admin: 07/05/18 09:40 Dose: 10 gm Latanoprost (Xalatan Opht) 0 ml OD HS [facility] Last Admin: 07/05/18 21:13 Dose: 2.5 ml Levothyroxine Sodium (Synthroid) 50 mcg PO 0600 [facility] Last Admin: 07/06/18 06:13 Dose: 50 mcg Meclizine HCl (Antivert) 25 mg PO DAILY [facility] Last Admin: 07/05/18 09:40 Dose: 25 mg Botho-7-Fcwa Ethyl Esters (Lovaza) 1 gm PO DAILY [facility] Last Admin: 07/05/18 09:38 Dose: 1 gm Pantoprazole Sodium (Protonix Ec Tab) 40 mg PO 0600 [facility] Last Admin: 07/06/18 06:13 Dose: 40 mg Potassium Chloride (K-Dur 20 Meq Er Tab) 20 meq PO DAILY [facility] Last Admin: 07/05/18 09:38 Dose: 20 meq Sertraline HCl (Zoloft) 50 mg PO DAILY [facility] Last Admin: 07/05/18 09:40 Dose: 50 mg Simethicone (Mylicon Chew Tab) 80 mg PO [facility] PRN PRN Reason: GI distress Last Admin: 07/06/18 02:05 Dose: 80 mg Tamsulosin HCl (Flomax) 0.4 mg PO DAILY [facility] Last Admin: 07/05/18 09:40 Dose: 0.4 mg - Labs Labs: 07/05/18 07:00 07/05/18 07:00 PT 12.2 SECONDS (9.4-12.5) 07/01/18 07:14 INR 1.06 07/01/18 07:14 APTT 27.5 Seconds (25.1-36.5) 07/01/18 07:14 - Constitutional Appears: Chronically Ill - Head Exam Head Exam: NORMAL INSPECTION - Respiratory Exam Respiratory Exam: Decreased Breath Sounds - Cardiovascular Exam Cardiovascular Exam: +S1, +S2 - GI/Abdominal Exam GI & Abdominal Exam: Soft. 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
[2018-07-06] MEDS: Latanoprost 2.5 ml Opht Soln OD SCH (21:31)
--- NOTE | 2018-07-07 03:27 | PN ---
DATE: 07/06/2018 SUBJECTIVE: The patient is an 83-year-old male. Patient was seen and examined at the bedside on 07/06/2018. Looking comfortable. No nausea, vomiting or diarrhea. No headache or dizziness. No chest pain or palpitation. Tolerating medications very well. Has routinely bowel movement. PHYSICAL EXAMINATION: VITAL SIGNS: Temperature 98.1, pulse 57, respiratory rate 20, blood pressure 120/61, pulse oximetry 97%. HEENT: Head: Normocephalic, atraumatic. Eyes: PERRLA. Extraocular muscles intact. Conjunctivae clear. Nose patent. Mucous membrane moist. NECK: Supple. No carotid bruit. No JVD or thyromegaly. CHEST: Bilaterally symmetrical. HEART: S1 and S2 positive. LUNGS: Clear to auscultation. ABDOMEN: Soft. Bowel sounds positive. No organomegaly. EXTREMITIES: No edema. No cyanosis. NEUROLOGICAL: Patient is awake and alert. Moving all 4 extremities. No focal deficits. MEDICATIONS: Allopurinol, aspirin, Tenormin, Pletal, colchicine, furosemide, meropenem, lactulose, Synthroid, meclizine, Protonix, potassium, Zoloft, Mylicon, Flomax. LABORATORY DATA: White blood cell 8.5, hemoglobin 13.3, hematocrit 40.7, platelets 168. Sodium 137, potassium is 3.8, BUN 17, creatinine 0.9. Glucose 91. ASSESSMENT AND PLAN: Mr. Richard Gonzalez is an 83-year-old male with anemia, hyperchloremia, with gouty arthritis, hypertension, peripheral vascular disease, constipation, hypothyroidism, dizziness, benign prostatic hypertrophy, carpal tunnel syndrome bilaterally wrist, degenerative joint disease, hands, small joints are crooked. Came with urinary retention because of urethral stricture. Scheduled cystoscopy in July. Has exacerbation of congestive heart failure. Electronic Equipment Maint Tech is on the case. Continue antibiotics as per Infectious Disease. Reviewed Dr. Trejo's notes. Patient has urinary tract infection due to extended-spectrum beta-lactamase Klebsiella in this patient with urinary retention. Rule out prostate disease, status post colostomy and reversal, status post second toe osteomyelitis with Group B strep and Pseudomonas. Continue Merrem and Lasix and should be getting 7 to 10 days. PSA level is only 1.4. Appreciated GI, ID input. Repeat labs. We will follow up. Malka Reyes MD [facility] # [id number] [facility]
[2018-07-07] MEDS: Simethicone 80 mg Chewtab PO PRN ×3 (03:30→17:02)
[2018-07-07] MEDS: Meropenem IV 1 gm in NS 50 ML IVPB SCH ×3 (06:02→21:47)
[2018-07-07] MEDS: Levothyroxine 50 MCG TAB PO SCH (06:08)
[2018-07-07] MEDS: Pantoprazole 40 mg EC Tab PO SCH (06:08)
[2018-07-07] MEDS: Omega-3-Acid Ethyl Esters 1 GM Cap PO SCH ×2 (10:00→11:00)
[2018-07-07] MEDS: Cilostazol 100 mg Tab UD PO SCH (11:00)
[2018-07-07] MEDS: Potassium Chloride 20 mEq ER Tab PO SCH (11:00)
[2018-07-07] MEDS: [UNRECOGNIZED DRUG - OTHER] PO SCH (11:21)
--- NOTE | 2018-07-07 14:08 | CP.PCM.PN ---
Subjective - Date & Time of Evaluation Date of Evaluation: 07/07/18 Time of Evaluation: 13:10 - Subjective Subjective: Comfortable on a chair, no fevers. Objective - Vital Signs/Intake and Output Vital Signs (last 24 hours): Temp Pulse Resp BP Pulse Ox 97.8 F 57 L 18 139/93 H 95 07/07/18 06:00 07/07/18 06:00 07/07/18 06:00 07/07/18 11:01 07/07/18 06:00 Intake and Output: 07/07/18 07/07/18 06:59 18:59 Intake Total 200 Output Total 1900 Balance -1700 - Medications Medications: Current Medications Allopurinol (Zyloprim) 100 mg PO DAILY [facility] Last Admin: 07/07/18 11:00 Dose: 100 mg Aspirin (Ecotrin) 81 mg PO DAILY [facility] Last Admin: 07/07/18 11:01 Dose: 81 mg Atenolol (Tenormin) 12.5 mg PO BID [facility] Last Admin: 07/07/18 11:02 Dose: 12.5 mg Cilostazol (Pletal) 100 mg PO DAILY [facility] Last Admin: 07/07/18 11:00 Dose: 100 mg Colchicine (Colocrys) 0.6 mg PO DAILY [facility] Last Admin: 07/07/18 10:59 Dose: 0.6 mg Furosemide (Lasix) 80 mg PO DAILY [facility] Last Admin: 07/07/18 11:01 Dose: 80 mg Home Med (Home Med) 1 unit PO DAILY [facility] Last Admin: 07/07/18 11:21 Dose: 1 unit Meropenem (Merrem Iv 1 Gm Premix) 50 mls @ 100 mls/hr IVPB Q8 [facility]; Protocol Stop: 07/10/18 10:37 Last Admin: 07/07/18 06:02 Dose: 100 mls/hr Lactulose (Enulose) 10 gm PO DAILY [facility] Last Admin: 07/07/18 10:59 Dose: 10 gm Latanoprost (Xalatan Opht) 0 ml OD HS [facility] Last Admin: 07/06/18 21:31 Dose: 2.5 ml Levothyroxine Sodium (Synthroid) 50 mcg PO 0600 [facility] Last Admin: 07/07/18 06:08 Dose: 50 mcg Meclizine HCl (Antivert) 25 mg PO DAILY [facility] Last Admin: 07/07/18 11:01 Dose: 25 mg Rvvaa-6-Uhxh Ethyl Esters (Lovaza) 1 gm PO DAILY [facility] Last Admin: 07/07/18 11:00 Dose: 1 gm Pantoprazole Sodium (Protonix Ec Tab) 40 mg PO 0600 [facility] Last Admin: 07/07/18 06:08 Dose: 40 mg Potassium Chloride (K-Dur 20 Meq Er Tab) 20 meq PO DAILY [facility] Last Admin: 07/07/18 11:00 Dose: 20 meq Sertraline HCl (Zoloft) 50 mg PO DAILY [facility] Last Admin: 07/07/18 11:01 Dose: 50 mg Simethicone (Mylicon Chew Tab) [address] [facility] PRN PRN Reason: GI distress Last Admin: 07/07/18 11:00 Dose: 80 mg Tamsulosin HCl (Flomax) 0.4 mg PO DAILY [facility] Last Admin: 07/07/18 11:15 Dose: 0.4 mg - Labs Labs: 07/05/18 07:00 07/05/18 07:00 PT 12.2 SECONDS (9.4-12.5) 07/01/18 07:14 INR 1.06 07/01/18 07:14 APTT 27.5 Seconds (25.1-36.5) 07/01/18 07:14 - Constitutional Appears: Chronically Ill - Head Exam Head Exam: NORMAL INSPECTION - Respiratory Exam Respiratory Exam: Decreased Breath Sounds - Cardiovascular Exam Cardiovascular Exam: +S1, +S2 - GI/Abdominal Exam GI & Abdominal Exam: Soft. 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
[2018-07-07] MEDS: Latanoprost 2.5 ml Opht Soln OD SCH (21:48)
--- NOTE | 2018-07-07 23:59 | PN ---
DATE: 07/07/2018 SUBJECTIVE: The patient is an 83-year-old male. The patient was seen and examined at the bedside on 07/07/2018, looking comfortable. No nausea, vomiting, or diarrhea. No hematuria or hematochezia. No swelling of the legs. No chest pain. No palpitations. Sitting on the chair. Looks comfortable. No fever. PHYSICAL EXAMINATION: VITAL SIGNS: Temperature 97.8, pulse 67, respiratory rate 18, blood pressure 139/96, pulse oximetry 95. HEENT: Head is normocephalic and atraumatic. Eyes; PERRLA. Extraocular muscles are intact. Conjunctivae are clear. Nose is patent. Mucous membranes are moist. NECK: Supple. No carotid bruit, JVD, or thyromegaly. CHEST: Bilaterally symmetrical. HEART: S1 and S2 positive. LUNGS: Clear to auscultation. ABDOMEN: Soft. Bowel sounds are present. No organomegaly. EXTREMITIES: No edema. No cyanosis. NEUROLOGIC: The patient is awake and alert. Follows simple commands. MEDICATIONS: Aspirin, atenolol, Pletal, colchicine, Lasix, Merrem, lactulose, levothyroxine, meclizine, pantoprazole, potassium, Zoloft, Mylicon, and Flomax. LABORATORY DATA: White blood cell 8.5, hemoglobin 13.3, hematocrit 40.7, and platelets 168. Sodium 137, potassium 3.8, BUN 17, creatinine 0.9, and glucose 91. ASSESSMENT AND PLAN: Mr. Richard Gonzalez is an 83-year-old male with anemia, hyperchloremia, having urinary tract infection due to extended-spectrum beta-lactamases Klebsiella in the patient with urinary retention due to urethral stricture, status post colostomy and reversal, arthritis, degenerative joint disease, gastroesophageal reflux disease, dyspepsia, status post second toe osteomyelitis with group B Streptococcus and Pseudomonas, hypothyroidism, anxiety, chronic congestive heart failure. The patient is almost bedridden. Continue Merrem at day 7 and should get 7 to 10 days for antibiotics. PSA level is 1.4. Plan is to continue present treatment. Urology and Infectious Disease is on the case. Repeat labs. We will follow up. Malka Amy, MD [facility] # [id number]
[2018-07-08] MEDS: Simethicone 80 mg Chewtab PO PRN ×3 (02:24→16:59)
[2018-07-08] MEDS: Meropenem IV 1 gm in NS 50 ML IVPB SCH ×3 (05:51→21:51)
[2018-07-08] MEDS: Pantoprazole 40 mg EC Tab PO SCH (05:55)
[2018-07-08] MEDS: Levothyroxine 50 MCG TAB PO SCH (05:57)
[2018-07-08] MEDS: Cilostazol 100 mg Tab UD PO SCH (10:31)
[2018-07-08] MEDS: Omega-3-Acid Ethyl Esters 1 GM Cap PO SCH (10:31)
[2018-07-08] MEDS: Potassium Chloride 20 mEq ER Tab PO SCH (10:31)
[2018-07-08] MEDS: [UNRECOGNIZED DRUG - OTHER] PO SCH (10:32)
--- NOTE | 2018-07-08 18:36 | CP.PCM.PN ---
Subjective - Date & Time of Evaluation Date of Evaluation: 07/08/18 Time of Evaluation: 10:55 - Subjective Subjective: No fevers, not in distress. Objective - Vital Signs/Intake and Output Vital Signs (last 24 hours): Temp Pulse Resp BP Pulse Ox 97.9 F 58 L 20 144/80 94 L 07/08/18 14:00 07/08/18 14:00 07/08/18 14:00 07/08/18 14:00 07/08/18 14:00 Intake and Output: 07/08/18 07/08/18 06:59 18:59 Intake Total 780 Output Total 1500 Balance -720 - Medications Medications: Current Medications Allopurinol (Zyloprim) 100 mg PO DAILY [facility] Last Admin: 07/08/18 10:31 Dose: 100 mg Aspirin (Ecotrin) 81 mg PO DAILY [facility] Last Admin: 07/08/18 10:32 Dose: Not Given Atenolol (Tenormin) 12.5 mg PO BID [facility] Last Admin: 07/08/18 10:31 Dose: 12.5 mg Cilostazol (Pletal) 100 mg PO DAILY [facility] Last Admin: 07/08/18 10:31 Dose: 100 mg Colchicine (Colocrys) 0.6 mg PO DAILY [facility] Last Admin: 07/08/18 10:31 Dose: 0.6 mg Furosemide (Lasix) 80 mg PO DAILY [facility] Last Admin: 07/08/18 10:30 Dose: 80 mg Home Med (Home Med) 1 unit PO DAILY [facility] Last Admin: 07/08/18 10:32 Dose: 1 unit Meropenem (Merrem Iv 1 Gm Premix) 50 mls @ 100 mls/hr IVPB Q8 [facility]; Protocol Stop: 07/10/18 10:37 Last Admin: 07/08/18 14:28 Dose: 100 mls/hr Lactulose (Enulose) 10 gm PO DAILY [facility] Last Admin: 07/08/18 10:29 Dose: 10 gm Latanoprost (Xalatan Opht) 0 ml OD HS [facility] Last Admin: 07/07/18 21:48 Dose: 2.5 ml Levothyroxine Sodium (Synthroid) 50 mcg PO 0600 [facility] Last Admin: 07/08/18 05:57 Dose: 50 mcg Meclizine HCl (Antivert) 25 mg PO DAILY [facility] Last Admin: 07/08/18 10:31 Dose: 25 mg Lmbvp-4-Kxce Ethyl Esters (Lovaza) 1 gm PO DAILY [facility] Last Admin: 07/08/18 10:31 Dose: Not Given Pantoprazole Sodium (Protonix Ec Tab) 40 mg PO 0600 [facility] Last Admin: 07/08/18 05:55 Dose: 40 mg Potassium Chloride (K-Dur 20 Meq Er Tab) 20 meq PO DAILY [facility] Last Admin: 07/08/18 10:31 Dose: 20 meq Sertraline HCl (Zoloft) 50 mg PO DAILY [facility] Last Admin: 07/08/18 10:31 Dose: 50 mg Simethicone (Mylicon Chew Tab) 80 mg PO [facility] PRN PRN Reason: GI distress Last Admin: 07/08/18 16:59 Dose: 80 mg Tamsulosin HCl (Flomax) 0.4 mg PO DAILY [facility] Last Admin: 07/08/18 10:31 Dose: 0.4 mg - Labs Labs: 07/05/18 07:00 07/05/18 07:00 PT 12.2 SECONDS (9.4-12.5) 07/01/18 07:14 INR 1.06 07/01/18 07:14 APTT 27.5 Seconds (25.1-36.5) 07/01/18 07:14 - Constitutional Appears: Chronically Ill - Head Exam Head Exam: NORMAL INSPECTION - Respiratory Exam Respiratory Exam: Decreased Breath Sounds - Cardiovascular Exam Cardiovascular Exam: +S1, +S2 - GI/Abdominal Exam GI & Abdominal Exam: Soft. 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
[2018-07-08] MEDS: Latanoprost 2.5 ml Opht Soln OD SCH (21:52)
[2018-07-09] MEDS: Simethicone 80 mg Chewtab PO PRN ×2 (02:49→10:06)
[2018-07-09] MEDS: Meropenem IV 1 gm in NS 50 ML IVPB SCH ×2 (05:08→15:00)
[2018-07-09] MEDS: Pantoprazole 40 mg EC Tab PO SCH (05:08)
[2018-07-09] MEDS: Levothyroxine 50 MCG TAB PO SCH (05:08)
--- NOTE | 2018-07-09 06:32 | CP.PCM.PN ---
Subjective - Date & Time of Evaluation Date of Evaluation: 07/09/18 Time of Evaluation: 06:05 - Subjective Subjective: Denies shortness of breath,awake, alert, no distress Reason for consultation and follow up: Cardiac evaluation for pre-op cystoscopy for ureteral stricture ,history of BPH,congestive heart failure, hypothyroidism Seen and examined by me and Dr. Royal Objective - Vital Signs/Intake and Output Vital Signs (last 24 hours): Temp Pulse Resp BP Pulse Ox 97.9 F 58 L 20 144/80 94 L 07/08/18 14:00 07/08/18 14:00 07/08/18 14:00 07/08/18 14:00 07/08/18 14:00 Intake and Output: 07/08/18 07/09/18 18:59 06:59 Intake Total 180 Output Total 1800 Balance -1620 - Medications Medications: Current Medications Allopurinol (Zyloprim) 100 mg PO DAILY [facility] Last Admin: 07/08/18 10:31 Dose: 100 mg Aspirin (Ecotrin) 81 mg PO DAILY [facility] Last Admin: 07/08/18 10:32 Dose: Not Given Atenolol (Tenormin) 12.5 mg PO BID [facility] Last Admin: 07/08/18 18:30 Dose: 12.5 mg Cilostazol (Pletal) 100 mg PO DAILY [facility] Last Admin: 07/08/18 10:31 Dose: 100 mg Colchicine (Colocrys) 0.6 mg PO DAILY [facility] Last Admin: 07/08/18 10:31 Dose: 0.6 mg Furosemide (Lasix) 80 mg PO DAILY [facility] Last Admin: 07/08/18 10:30 Dose: 80 mg Home Med (Home Med) 1 unit PO DAILY [facility] Last Admin: 07/08/18 10:32 Dose: 1 unit Meropenem (Merrem Iv 1 Gm Premix) 50 mls @ 100 mls/hr IVPB Q8 [facility]; Protocol Stop: 07/10/18 10:37 Last Admin: 07/09/18 05:08 Dose: 100 mls/hr Lactulose (Enulose) 10 gm PO DAILY [facility] Last Admin: 07/08/18 10:29 Dose: 10 gm Latanoprost (Xalatan Opht) 0 ml OD HS [facility] Last Admin: 07/08/18 21:52 Dose: 2.5 ml Levothyroxine Sodium (Synthroid) 50 mcg PO 0600 [facility] Last Admin: 07/09/18 05:08 Dose: 50 mcg Meclizine HCl (Antivert) 25 mg PO DAILY [facility] Last Admin: 07/08/18 10:31 Dose: 25 mg [id number] Ethyl Esters (Lovaza) 1 gm PO DAILY [facility] Last Admin: 07/08/18 10:31 Dose: Not Given Pantoprazole Sodium (Protonix Ec Tab) 40 mg PO 0600 [facility] Last Admin: 07/09/18 05:08 Dose: 40 mg Potassium Chloride (K-Dur 20 Meq Er Tab) 20 meq PO DAILY [facility] Last Admin: 07/08/18 10:31 Dose: 20 meq Sertraline HCl (Zoloft) 50 mg PO DAILY [facility] Last Admin: 07/08/18 10:31 Dose: 50 mg Simethicone (Mylicon Chew Tab) 80 mg PO [facility] PRN PRN Reason: GI distress Last Admin: 07/09/18 02:49 Dose: 80 mg Tamsulosin HCl (Flomax) 0.4 mg PO DAILY [facility] Last Admin: 07/08/18 10:31 Dose: 0.4 mg - Labs Labs: 07/05/18 07:00 07/05/18 07:00 PT 12.2 SECONDS (9.4-12.5) 07/01/18 07:14 INR 1.06 07/01/18 07:14 APTT 27.5 Seconds (25.1-36.5) 07/01/18 07:14 - Constitutional Appears: Non-toxic, No Acute Distress - Eye Exam Eye Exam: Normal appearance - ENT Exam ENT Exam: Mucous Membranes Moist - Neck Exam Neck Exam: Full ROM, Normal Inspection - Respiratory Exam Respiratory Exam: Clear to Ausculation Bilateral, NORMAL BREATHING PATTERN - Cardiovascular Exam Cardiovascular Exam: REGULAR RHYTHM, +S1, +S2 - GI/Abdominal Exam GI & Abdominal Exam: Soft, Normal Bowel Sounds - Exam Additional comments: no bladder distention,denies pain, with wing catheter - Extremities Exam Extremities Exam: Full ROM, Normal Capillary Refill - Neurological Exam Neurological Exam: Alert, Awake, Oriented x3 - Psychiatric Exam Psychiatric exam: Normal Affect, Normal Mood - Skin Skin Exam: Dry, Warm Assessment and Plan - Assessment and Plan (Free Text) Assessment: An 83 year old male who came in to the ER due to complaining of inability to urinate.History of congestive heart failure, hypothyroidism degenerative joint disease,hypertension, BPH, and carpal tunnel of bilateral wrist/arthritis. Wing catheter was inserted for urinary retention. He was scheduled for cystoscopy this July. Consult was called to evaluate CHF and cardiac clearance for possible surgery. Cleared for surgery/procedure. moderate to high risk. No evidence of CHF,no evidence of ischemia or arrythmia. Seen by urology but prefer to follow up with his urologist (Dr. Paredes) for further treatment.Cardiac status stable. Patient not going for any procedure. Will sign off. Refer accordingly. Plan: Cardiac status stable No distress, Denies shortness of breath Stable heart rate Controlled blood pressure Cardiac status stable Cleared for surgery from cardiac standpoint Positive for Urinary tract infection ( urine culture Klebsella Pneumonaie) Continue IV antibiotics per ID Continue current medications Continue current treatment Will sign off and refer accordingly Plan and treatment discussed with Dr. Royal
--- NOTE | 2018-07-09 08:42 | PN ---
DATE: 07/08/2018 SUBJECTIVE: The patient is an 83-year-old male. Patient was seen and examined at the bedside on 07/08/2018 and looking comfortable. Sitting on the chair. No fever. No chills. No nausea, vomiting or diarrhea. No hematuria or hematochezia. No swelling of the legs. No chest pain. No palpitation. No headache. No dizziness. PHYSICAL EXAMINATION: VITAL SIGNS: Temperature 97.9, pulse 58, respiratory rate 20, blood pressure 144/80, pulse oximetry 97%. HEENT: Head: Normocephalic, atraumatic. Eyes: PERRLA. Extraocular muscles intact. Conjunctivae clear. Nose patent. Mucous membrane moist. NECK: Supple. No carotid bruit. No JVD or thyromegaly. CHEST: Bilaterally symmetrical. HEART: S1, S2 positive. LUNGS: Clear to auscultation. ABDOMEN: Soft. Bowel sounds positive. No organomegaly. EXTREMITIES: No edema, no cyanosis. NEUROLOGIC: Patient is awake, alert. Follows simple commands. MEDICATIONS: Aspirin, Tenormin, Pletal, colchicine, Lasix, Merrem, lactulose, levothyroxine, Antivert, [place]-3, Protonix, K-Dur, Zoloft, and Flomax. LABORATORY DATA: White blood cell 8.5, hemoglobin 13.5, hematocrit 40.7, platelets 168. Sodium 137, potassium 3.8, BUN 17, creatinine 0.9. Glucose 91. 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 Continue Merrem at day 8, should get 7 to 10 days as per Infectious Disease. PSA level is only 1.4. Follow up further plans for Urology. According to Urology, patient need cystoscopy as outpatient. Discharge planning depending on the antibiotics. We will repeat lab tomorrow and we will follow up. Malka Reyes MD MTDD
[2018-07-09] MEDS: [UNRECOGNIZED DRUG - OTHER] PO SCH (10:05)
[2018-07-09] MEDS: Cilostazol 100 mg Tab UD PO SCH (10:05)
[2018-07-09] MEDS: Potassium Chloride 20 mEq ER Tab PO SCH (10:06)
[2018-07-09] MEDS: Omega-3-Acid Ethyl Esters 1 GM Cap PO SCH (10:07)
--- NOTE | 2018-07-09 15:28 | CP.PCM.PN ---
Subjective - Date & Time of Evaluation Date of Evaluation: 07/09/18 Time of Evaluation: 12:25 - Subjective Subjective: Afebrile, not in distress. Objective - Vital Signs/Intake and Output Vital Signs (last 24 hours): Temp Pulse Resp BP Pulse Ox 97.8 F 62 18 122/61 95 07/09/18 06:00 07/09/18 06:00 07/09/18 06:00 07/09/18 10:06 07/09/18 06:00 Intake and Output: 07/09/18 07/09/18 06:59 18:59 Intake Total 180 Output Total 1800 Balance -1620 - Medications Medications: Current Medications Allopurinol (Zyloprim) 100 mg PO DAILY [facility] Last Admin: 07/09/18 10:07 Dose: 100 mg Aspirin (Ecotrin) 81 mg PO DAILY [facility] Last Admin: 07/09/18 10:05 Dose: 81 mg Atenolol (Tenormin) 12.5 mg PO BID [facility] Last Admin: 07/09/18 10:06 Dose: 12.5 mg Cilostazol (Pletal) 100 mg PO DAILY [facility] Last Admin: 07/09/18 10:05 Dose: 100 mg Colchicine (Colocrys) 0.6 mg PO DAILY [facility] Last Admin: 07/09/18 10:05 Dose: 0.6 mg Furosemide (Lasix) 80 mg PO DAILY [facility] Last Admin: 07/09/18 10:06 Dose: 80 mg Home Med (Home Med) 1 unit PO DAILY [facility] Last Admin: 07/09/18 10:05 Dose: 1 unit Meropenem (Merrem Iv 1 Gm Premix) 50 mls @ 100 mls/hr IVPB Q8 [facility]; Protocol Stop: 07/10/18 10:37 Last Admin: 07/09/18 05:08 Dose: 100 mls/hr Lactulose (Enulose) 10 gm PO DAILY [facility] Last Admin: 07/09/18 10:05 Dose: 10 gm Latanoprost (Xalatan Opht) 0 ml OD HS [facility] Last Admin: 07/08/18 21:52 Dose: 2.5 ml Levothyroxine Sodium (Synthroid) 50 mcg PO 0600 [facility] Last Admin: 07/09/18 05:08 Dose: 50 mcg Meclizine HCl (Antivert) 25 mg PO DAILY [facility] Last Admin: 07/09/18 10:06 Dose: 25 mg Sjjyb-0-Ymwd Ethyl Esters (Lovaza) 1 gm PO DAILY [facility] Last Admin: 07/09/18 10:07 Dose: Not Given Pantoprazole Sodium (Protonix Ec Tab) 40 mg PO 0600 [facility] Last Admin: 07/09/18 05:08 Dose: 40 mg Potassium Chloride (K-Dur 20 Meq Er Tab) 20 meq PO DAILY [facility] Last Admin: 07/09/18 10:06 Dose: 20 meq Sertraline HCl (Zoloft) 50 mg PO DAILY [facility] Last Admin: 07/09/18 10:06 Dose: 50 mg Simethicone (Mylicon Chew Tab) 80 mg PO [facility] PRN PRN Reason: GI distress Last Admin: 07/09/18 10:06 Dose: 80 mg Tamsulosin HCl (Flomax) 0.4 mg PO DAILY [facility] Last Admin: 07/09/18 10:05 Dose: 0.4 mg - Labs Labs: 07/05/18 07:00 07/05/18 07:00 PT 12.2 SECONDS (9.4-12.5) 07/01/18 07:14 INR 1.06 07/01/18 07:14 APTT 27.5 Seconds (25.1-36.5) 07/01/18 07:14 - Constitutional Appears: Non-toxic, Chronically Ill - Head Exam Head Exam: NORMAL INSPECTION - Respiratory Exam Respiratory Exam: Decreased Breath Sounds - Cardiovascular Exam Cardiovascular Exam: +S1, +S2 - GI/Abdominal Exam GI & Abdominal Exam: Soft. absent: Tenderness Assessment and Plan - Assessment and Plan (Free Text) Plan: Assessment UTI due to ESBL Klebsiella in this patient with urinary retention S/P colostomy and reversal arthritis degenerative joint disease GERD S/P 2nd toe osteomyelitis with Group B Strep and Pseudomonas hypothyroidism anxiety chronic CHF Plan on Merrem day 9 and should get 7-10 days of antibiotics PSA level is only 1.4 follow up further plans of Urology
[2018-07-09 16:31] VITALS: BP 133/83; PULSE 86; RESP 20; TEMP 97.7; O2SAT 96
== END 2018-07-09 18:30 | disposition home or self-care (01) | DRG 697 ==
LOC: ED 05:45 → ERH 10:36 → 2RNO 13:10 → 5RSO 07-04 18:48
PROVIDERS: ADMIT Internal Medicine; ATTEND Internal Medicine
DX: N35.919 Unspecified urethral stricture, male, unspecified site (principal); N39.0 Urinary tract infection, site not specified; Z79.82 Long term (current) use of aspirin; Z79.899 Other long term (current) drug therapy; Z79.1 Long term (current) use of non-steroidal anti-inflammatories (NSAID); L89.322 Pressure ulcer of left buttock, stage 2; M54.2 Cervicalgia; B96.1 Klebsiella pneumoniae [K. pneumoniae] as the cause of diseases classified elsewhere; D64.9 Anemia, unspecified; E03.9 Hypothyroidism, unspecified; E87.8 Other disorders of electrolyte and fluid balance, not elsewhere classified; F41.9 Anxiety disorder, unspecified; F32.89 Other specified depressive episodes; H81.09 Meniere's disease, unspecified ear; H91.93 Unspecified hearing loss, bilateral; I08.1 Rheumatic disorders of both mitral and tricuspid valves; I11.0 Hypertensive heart disease with heart failure; I50.9 Heart failure, unspecified; I73.9 Peripheral vascular disease, unspecified; J44.9 Chronic obstructive pulmonary disease, unspecified; K21.9 Gastro-esophageal reflux disease without esophagitis; K59.00 Constipation, unspecified; M06.9 Rheumatoid arthritis, unspecified; M10.9 Gout, unspecified; M19.039 Primary osteoarthritis, unspecified wrist; N30.20 Other chronic cystitis without hematuria; N40.1 Benign prostatic hyperplasia with lower urinary tract symptoms; Z16.12 Extended spectrum beta lactamase (ESBL) resistance; Z74.01 Bed confinement status; Z87.891 Personal history of nicotine dependence; Z93.3 Colostomy status; Z96.652 Presence of left artificial knee joint; Z98.1 Arthrodesis status

== ENCOUNTER 2018-07-18 06:27 | Day surgery (SDC) | payer MEDICARE, OTHER ==
[2018-07-18] MEDS ORDERED: Bupivacaine 0.5% 50 ML IJ ONE (07:32)
[2018-07-18] MEDS ORDERED: Midazolam 2 MG/2 ML VIAL ONE (07:58)
[2018-07-18] MEDS ORDERED: Propofol 10 mg/ml Inj (20 ML) ONE (07:58)
--- NOTE | 2018-07-18 08:24 | HP ---
History and physical for patient coming to surgery on 07/18/2018. HISTORY OF PRESENT ILLNESS: Mr. Gonzalez is an 83-year-old individual who has been suffering with pain, tingling, numbness, dysesthesias, inability to use his left hand for a very longtime. His story is well complicated as he suffers with severe osteoarthritis as well as gout, but recently physical exam and EMG nerve conduction study documented both carpal tunnel syndrome and cubital tunnel syndrome. He is being admitted for decompression. PAST MEDICAL HISTORY: Significant for hypertension, COPD, hypothyroidism, Meniere disease. He also recently underwent an occipital cervical fusion for an odontoid fracture. He previously had an anterior cervical corpectomy fixation infusion for severe myelopathy, which he also continues to suffer from. SOCIAL HISTORY: He was recently discharged from a subacute unit after his occipital cervical surgery. He does live alone, although this is getting increasingly difficult for him. PAST SURGICAL HISTORY: Significant as above as well as right ankle fusion. He has left total knee replacement. He has had a colostomy in 2001, for diverticulitis. MEDICATIONS: Multiple documented in his chart. SOCIAL HISTORY: He did use to smoke, but stopped. Occasionally drinks alcohol. PHYSICAL EXAMINATION: Severe amount of scattered osteoarthritis, very debilitated individual, very difficulty walking. He has been getting out of a chair. He has marked degenerative disease involving both hands. On the left side, he has weak finger collar cutter, weak interossei. Tinel sign is somewhat positive both at the carpal tunnel and the cubital tunnel. He has marked waisting of the abductor pollicis brevis. EMG nerve conduction study was significant with findings of both ulnar nerve across the elbow and median nerve across the wrist. After much discussion with the patient's son and himself, the nature of his procedure, the realistic anticipated results, essential risks, complications, chance of success, recovery time, we decided to go ahead with combined left cubital tunnel and carpal tunnel releases. The nature of the procedure including potential risks, complications, realistic chance of success, recovery time discussed with him at length. All their questions were answered. They fully understood the above and elected to proceed as offered and is now being admitted for this procedure. Servando Scott MD [facility] # [id number]
[2018-07-18] MEDS ORDERED: Bacitracin 500 Units/gm Oint Foilpak UD ONE (08:59)
[2018-07-18] MEDS ORDERED: Bacitracin Ointment 30 GM TUBE ONE (09:24)
[2018-07-18] MEDS ORDERED: Sodium Chloride 0.9% 1,000 ML IV SCH (09:45)
[2018-07-18] MEDS ORDERED: Oxycodone/Acetaminophen 5/325 mg Tab PO PRN (09:55)
[2018-07-18 10:05] VITALS: RESP 18
[2018-07-18 11:31] VITALS: TEMP 97.9
[2018-07-18 14:03] VITALS: PULSE 48
[2018-07-18 16:08] VITALS: BP 106/58; O2SAT 95
--- NOTE | 2018-07-19 08:20 | OP ---
PROCEDURE DATE: 07/18/2018 PREOPERATIVE DIAGNOSIS: Left ulnar neuropathy. POSTOPERATIVE DIAGNOSIS: Left ulnar neuropathy. PROCEDURE: Left ulnar nerve decompression. SURGEON: Servando Scott MD ANESTHESIA: LMA ESTIMATED BLOOD LOSS: 10 mL. COMPLICATIONS: None. JUSTIFICATION: The patient has been suffering with pain and numbness involving the ulnar aspect of his arm for a long time. EMG confirms diagnosis of ulnar neuropathy. The patient also had significant arthritis and he was strongly advised that this would only ameliorate the sensory septum, he understood. The potential risks and complications were delineated. He agreed to proceed. PROCEDURE IN DETAIL: Patient was anesthetized. Tourniquet was placed. The entire left upper extremity was scrubbed with acetone, scrubbed, painted, and draped in the usual sterile manner. The extremity was exsanguinated. Tourniquet was inflated to 250. A typical boomerang type incision was made in a cubital tunnel from the intermuscular septum in the arm through the cubital tunnel into the forearm musculature. This was made with a #15 blade knife. Then, sharp dissection was performed through the fascia to encounter the ulnar nerve as it emerged from the intermuscular septum. Dissection was carried for 360 degrees around it and a vessel loop was placed. Then, further dissection was performed distally to transect a lot of the fascial bands all the way into the forearm musculature which was also opened up a little bit. At this point, the decompression was deemed adequate. Subsequently, I performed a carpal tunnel release, after which the tourniquet was deflated. Small bleeding points coagulated with bipolar cautery. The wound was copiously irrigated with antibiotic solution. It was then closed with interrupted inverted 3-0 Vicryl, daryl, bacitracin ointment, and a hard splint with the arm in a semi-flexed position was placed. He was aroused from anesthesia. Notes moving all fingers well on the way to the recovery room. All counts were correct. Servando Scott MD
--- NOTE | 2018-07-19 08:41 | OP ---
PROCEDURE DATE: 07/18/2018 PREOPERATIVE DIAGNOSIS: Left carpal tunnel syndrome. POSTOPERATIVE DIAGNOSIS: Left carpal tunnel syndrome. PROCEDURE: Left carpal tunnel release. SURGEON: Servando Scott MD. TYPE OF ANESTHESIA: LMA. ESTIMATED BLOOD LOSS: 5 mL. COMPLICATIONS: None. JUSTIFICATION: The patient was suffering with difficult signs of carpal tunnel, confirmed by EMG. He was offered the possibility of carpal tunnel release by operative intervention. The nature of the procedure, alternatives, the rationale behind it, potential risks, complications, chance of success, and recovery time were delineated with him at length. All of his questions were answered. He fully understood all the above and elected to proceed. DESCRIPTION OF PROCEDURE: The patient was taken to the operating room. He has immediately been status post a left ulnar nerve release. The tourniquet was still inflated. An incision was made from the area of the palmaris longus tendon in a distal wrist crease, down to point. Incision was then made with a #15 blade knife. It was carried down to the level of the transverse carpal ligament. This was then opened up first with the #15 blade. This was performed until small shards remain. I was able to visualize the content entering the proximal carpal tunnel. Then, with tenotomy scissors, I opened up some more of the palmar fascia up to forearm and then transected the remaining shards of the TCL all the way through. At this point, the tourniquet was deflated. The wound copiously irrigated with antibiotic solution. bleeding points coagulated with bipolar cautery. The wound was then closed with multiple interrupted 3-0 Prolene horizontal mattress sutures. Bacitracin ointment and a splint were then placed. The patient was aroused from anesthesia, noted moving his fingers while in recovery room. All counts were correct. No complications. Servando Scott MD
== END 2018-07-18 15:40 | disposition home or self-care (01) ==
LOC: SDS 06:27
PROVIDERS: ATTEND Neurological Surgery
DX: G56.02 Carpal tunnel syndrome, left upper limb (principal); G56.22 Lesion of ulnar nerve, left upper limb; I10 Essential (primary) hypertension; J44.9 Chronic obstructive pulmonary disease, unspecified; E03.9 Hypothyroidism, unspecified; H81.09 Meniere's disease, unspecified ear; M19.90 Unspecified osteoarthritis, unspecified site; M10.9 Gout, unspecified; R26.2 Difficulty in walking, not elsewhere classified; Z96.652 Presence of left artificial knee joint
CPT/HCPCS: 36415; 64718; 64721; 84132; J1885; J2001; J2250; J2704; J3010; J7030

== ENCOUNTER 2019-02-08 13:29 | Outpatient (CLI) | payer MEDICARE, OTHER | END 2019-02-08 13:30 | disposition home or self-care (01) | LOC: LAB 13:29 ==